=== PATIENT | male | born 1960 | race Caucasian/White ===

== ENCOUNTER 2021-05-02 13:20 | Emergency (ER) | payer OTHER, SELFPAY ==
[2021-05-02 13:21] VITALS: BP 266/115; PULSE 79; RESP 16; TEMP 36.4; O2SAT 100; BMI 19.5
[2021-05-02 14:42] VITALS: BP 202/101; PULSE 66; RESP 15; O2SAT 99
[2021-05-02 15:04] LABS: Mean Corpuscular Volume 91.1 fL (80-94); Platelet Count 193 K/mm3 (150-450); RBC Distribution Width CV 12.4 % (11.6-14.6); RBC Distribution Width SD 41.4 fl (35.1-43.9); Red Blood Count 5.49 M/mm3 (4.6-6.2); White Blood Count 14.5 K/mm3 (4.4-11.0)
[2021-05-02 15:19] LABS: Anion Gap 4 (5-15); BUN 11 mg/dL (7-18); BUN/Creat Ratio 10.8 RATIO (10-20); Calcium,Total 9.1 mg/dL (8.5-10.1); Chloride 108 mmol/L (98-107); Creatinine, Serum 1.02 mg/dL (0.70-1.30); EST Glomerular Filtration Rate 79 mL/min (>60); Est Glom Filt Rate - Afr Amer 95 mL/min (>60); Estimated Creatinine Clearance 60.99 ml/min; Glucose 116 mg/dL (74-106); Potassium 4.2 mmol/L (3.5-5.1); Sodium Level 139 mmol/L (136-145)
--- NOTE | 2021-05-02 15:26 | EX.ED.DYSGE1 ---
HPI History of Present Illness Chief Complaint: Hypertension Detail of Chief Complaint: Sent to ER because of elevated blood pressure Informant: patient and spouse/S.O. Onset/Context/Timing Onset: - (Unknown) Context: - (Unknown) Timing: - (Unknown) Quality: Markedly low blood pressure Location: Cardiovascular Current Severity: Severe Maximum Severity: Severe Worsened by: Unknown Relieved by: Unknown Associated Symptoms Associated Symptoms: None Narrative Narrative: Patient is a 61-year-old male who smokes 1/2 pack/day and drinks heavily on weekends who was sent to the emergency department from urgent care because of elevated blood pressure. He went to the urgent care because of runny nose for the past 3 days. He thinks he may have a sinus infection. He denies headache, he denies double vision, blurred vision loss of vision. [place] ringing his ears, decreased hearing. He denies trouble with speech or swallowing. He denies chest pain or back pain. He denies shortness of breath. Denies [place] exertion, orthopnea or PND. He denies nausea or vomiting. He denies difficulty urinating. He denies change in the color of his urine. He denies paresthesia, anesthesia or motor is. He denies problems with his balance. He is presently on no medication. He has not seen a doctor in a couple of years. Prior similar symptoms: No Recent Illness/Hospitalization: No PFSH PFS Medical History Marijuana use Smoker Home Medications hydrochlorothiazide 12.5 mg PO DAILY #30 tab 05/02/21 [Rx Last Taken Unknown] lisinopril 5 mg PO DAILY #30 tab 05/02/21 [Rx Last Taken Unknown] Allergy/AdvReac Type Severity Reaction Status Date / Time No Known Allergies Allergy Verified 05/02/21 13:25 Social History (Updated 05/02/21 @ 15:[address] Vasu Cantrell MD) household members: significant other Smoking Status: Current every day smoker tobacco type: cigarettes alcohol intake: current alcohol intake frequency: a few times a week substance use type: marijuana ROS ROS ED Constitutional Constitutional ED: Denies chills, fever(s), subjective, sweats or weight loss Eyes Eyes: Denies blurry vision, change in vision or diplopia ENT ENT ED: Denies ear pain, rhinorrhea or sore throat Cardiovascular Cardiovascular: Denies chest pain, orthopnea, palpitations, paroxysmal nocturnal dyspnea or racing heartbeat Respiratory/Chest Respiratory/Chest: Denies cough, dyspnea, dyspnea on exertion, orthopnea, paroxysmal nocturnal dyspnea or sputum Gastrointestinal Gastrointestinal: Denies abdominal pain, diarrhea, melena, nausea or vomiting Genitourinary Genitourinary ED: Denies hematuria or urinary frequency Musculoskeletal Musculoskeletal: Denies arthralgias, back pain, myalgias or neck pain Integumentary Denies rash Neurologic Neurologic: Denies headache(s), paresthesias or weakness Endocrine Endocrinology: Denies polydipsia, polyphagia or polyuria EXAM Physical Exam Const Vital Signs: 05/02/21 13:21 05/02/21 14:42 05/02/21 16:01 Temperature 97.5 F L Temperature Source Temporal Pulse Rate 79 66 74 Respiratory Rate 16 15 18 Blood Pressure 266/115 H 202/101 H 202/107 H Blood Pressure Mean 165 134 138 Pulse Ox 100 99 97 Oxygen Delivery Method Room Air Room Air Room Air Positive well nourished and well developed General Appearance ED: well developed and NAD; Negative for pallor HEENT Reports TM's clear and moist mucous membranes HEENT Narrative: Head is atraumatic normocephalic. Nares patent. Posterior pharynx out erythema or exudate. Tympanic Membrane ED: Yes TM's clear Eyes PERRL and EOMs intact bilaterally General Eye ED: Yes other Other Details: The cup-to-disc ratio is normal. Is no papilledema. There is AV nicking noted. Venous pulsations noted bilaterally. No exudate was noted. He does have significant cataracts and admits to difficulty driving at night with lights coming at him. ; Negative for pale conjunctiva or scleral icterus Neck no lymphadenopathy, supple and no JVD Chest Wall inspection of chest normal and palpation of chest normal Resp normal respiratory effort and clear to auscultation bilaterally Effort and Inspection: Negative for pain with movement Cardio regular rate, regular rhythm, S1 normal heart sound, S2 normal heart sound and no murmurs GI normal to inspection, nondistended, normoactive bowel sounds, non-tender and non-distended; Negative for hepatosplenomegaly GI Narrative: There is no abdominal bruit. There is no pulsatile mass. Palpation: soft Back/Spine no CVA tenderness Cervical Spine: Negative for cervical spine tenderness Thoracic Spine / Upper Back: Negative for thoracic spinal tenderness or paraspinal muscle tenderness Lumbar Spine / Lower Back: Negative for lumbar spinal tenderness Extremity normal to inspection General Extremety ED: Negative for edema or tenderness General Extremity: Negative for edema Neuro oriented x3, CN's II-XII intact bilaterally and no sensory deficits noted Sensorium / Orientation: alert Motor Exam: strength 5/5 throughout Psych mental status grossly normal Skin no rashes or lesions noted, no wounds and skin turgor normal General Skin Exam: Negative for jaundice or pallor MDM MDM MDM Narrative Medical decision making narrative: Patient's initial blood pressure was 266/115. Onset is unknown. He is asymptomatic. Baseline blood work was obtained to assess for endorgan injury. Blood pressure initially 266/115. When reassessed 202/107. Patient did receive dose of lisinopril and hydrochlorothiazide in the emergency department. He was discharged prescription for lisinopril and hydrochlorothiazide. Lab Data Attestation: I reviewed the patient's lab results. Lab results narrative: Blood work is remarkable for mild proteinuria and hematuria consistent with longstanding high blood pressure. Of note patient's funduscopic exam revealed mild AV nicking. Labs: Laboratory Results - last 24 hr 05/02/21 05/02/21 05/02/21 14:55 14:55 15:25 WBC 14.5 H RBC 5.49 Hgb 17.0 H Hct 50.0 MCV 91.1 MCH 31.0 MCHC 34.0 RDW Std Deviation 41.4 RDW Coeff of Mick 12.4 Plt Count 193 MPV 10.0 Sodium 139 Potassium 4.2 Chloride 108 H Carbon Dioxide 27.0 Anion Gap 4 L BUN 11 Creatinine 1.02 Estim Creat Clear Calc 60.99 Est GFR (MDRD) Af Amer 95 Est GFR (MDRD) Non-Af 79 BUN/Creatinine Ratio 10.8 Glucose 116 H Calcium 9.1 Urine Color Yellow Urine Clarity Clear Urine pH 6.0 Ur Specific [place] 1.010 Urine Protein 15 H Urine Glucose (UA) Normal Urine Ketones Negative Urine Occult Blood 150 H Urine Nitrite Negative Urine Bilirubin Negative Urine Urobilinogen Normal Ur Leukocyte Esterase Negative Discharge Plan Triage Chief Complaint: Hypertension ED Provider: Vasu Cantrell Dx/Rx/DC Orders Clinical Impression: Asymptomatic hypertensive urgency Instructions: ED Hypertension New Begin Treatment Prescriptions: New lisinopril 5 mg tablet 5 mg PO DAILY Qty: 30 RF: 0 hydrochlorothiazide 12.5 mg tablet 12.5 mg PO DAILY Qty: 30 RF: 0 Primary Care Provider: Care Physician,No Primary Referrals: Conrad Champion MD [STAFF PHYSICIAN] - 1-2 Weeks (New onset hypertension. Funduscopic exam revealed AV nicking and urine was remarkable for mild proteinuria and hematuria started on lisinopril and hydrochlorothiazide) Care Physician,No Primary [Primary Care Provider] - Disposition Disposition: Home, Self Care
[2021-05-02 15:35] LABS: Color, Urine Yellow (Yellow); Glucose, Dipstick Normal (Normal); Ketone-Dipstick Negative (Negative); Leukocyte Esterase-Dipstick Negative /ul (Negative); Nitrite-Dipstick Negative (Negative); Occult Blood-Urine 150 /ul (Negative); Protein-Dipstick 15 mg/dl (Negative); Urine Bilirubin Dipstick Negative (Negative); Urine Clarity Clear (Clear); Urine Urobilinogen Normal (Normal)
[2021-05-02 16:01] VITALS: BP 202/107; PULSE 74; RESP 18; O2SAT 97
[2021-05-02] MEDS: hydroCHLOROthiazide 12.5mg 12.5 MG PO (16:02)
--- NOTE | 2021-05-02 16:13 | EDS_ITS ---
HPI History of Present Illness Chief Complaint: Hypertension PFSH PFSH Medical History Marijuana use Smoker Home Medications hydrochlorothiazide 12.5 mg PO DAILY #30 tab 05/02/21 [Rx Last Taken Unknown] lisinopril 5 mg PO DAILY #30 tab 05/02/21 [Rx Last Taken Unknown] Allergy/AdvReac Type Severity Reaction Status Date / Time No Known Allergies Allergy Verified 05/02/21 13:25 Social History (Updated 05/02/21 @ 15:[address] Vasu Cantrell MD) household members: significant other Smoking Status: Current every day smoker tobacco type: cigarettes alcohol intake: current alcohol intake frequency: a few times a week substance use type: marijuana EXAM Physical Exam Const Vital Signs: 05/02/21 13:21 05/02/21 14:42 05/02/21 16:01 Temperature 97.5 F L Temperature Source Temporal Pulse Rate 79 66 74 Respiratory Rate 16 15 18 Blood Pressure 266/115 H 202/101 H 202/107 H Blood Pressure Mean 165 134 138 Pulse Ox 100 99 97 Oxygen Delivery Method Room Air Room Air Room Air [facility] Lab Data Labs: Laboratory Results - last 24 hr 05/02/21 05/02/21 05/02/21 14:55 14:55 15:25 WBC 14.5 H RBC 5.49 Hgb 17.0 H Hct 50.0 MCV 91.1 MCH 31.0 MCHC 34.0 RDW Std Deviation 41.4 RDW Coeff of Mick 12.4 Plt Count 193 MPV 10.0 Sodium 139 Potassium 4.2 Chloride 108 H Carbon Dioxide 27.0 Anion Gap 4 L BUN 11 Creatinine 1.02 Estim Creat Clear Calc 60.99 Est GFR (MDRD) Af Amer 95 Est GFR (MDRD) Non-Af 79 BUN/Creatinine Ratio 10.8 Glucose 116 H Calcium 9.1 Urine Color Yellow Urine Clarity Clear Urine pH 6.0 Ur Specific [place] 1.010 Urine Protein 15 H Urine Glucose (UA) Normal Urine Ketones Negative Urine Occult Blood 150 H Urine Nitrite Negative Urine Bilirubin Negative Urine Urobilinogen Normal Ur Leukocyte Esterase Negative Discharge Plan Triage Chief Complaint: Hypertension ED Provider: Vasu Cantrell Dx/Rx/DC Orders Clinical Impression: Asymptomatic hypertensive urgency Instructions: ED Hypertension New Begin Treatment Prescriptions: New lisinopril 5 mg tablet 5 mg PO DAILY Qty: 30 RF: 0 hydrochlorothiazide 12.5 mg tablet 12.5 mg PO DAILY Qty: 30 RF: 0 Primary Care Provider: Care Physician,No Primary Referrals: Conrad Champion MD [STAFF PHYSICIAN] - 1-2 Weeks (New onset hypertension. Funduscopic exam revealed AV nicking and urine was remarkable for mild proteinuria and hematuria started on lisinopril and hydrochlorothiazide) Care Physician,No Primary [Primary Care Provider] - Disposition Disposition: Home, Self Care
[2021-05-02 16:16] VITALS: BP 181/111
[2021-05-02] MEDS: Lisinopril 5 MG Tablet PO (16:23)
== END 2021-05-02 16:27 | disposition home or self-care (01) ==
PROVIDERS: Emergency Provider Emergency Medicine
DX: I16.0 Hypertensive urgency (principal); F17.210 Nicotine dependence, cigarettes, uncomplicated; F12.90 Cannabis use, unspecified, uncomplicated
CPT/HCPCS: 80048; 81002; 85027; 99285; A4216

== ENCOUNTER → 2022-07-15 | Outpatient (CLI) | payer SELFPAY ==
[2022-07-15 10:22] LABS: Hematocrit 52.3 % (40-54); Hemoglobin 17.2 g/dL (13.0-16.5); Mean Corp Hgb Conc 32.9 g/dL (32-36); Mean Corpuscular Hgb 30.3 pg (27.0-32.0); Mean Corpuscular Volume 92.2 fL (80-94); Mean Platelet Vol. 10.5 fl (6.2-12.0); Platelet Count 222 K/mm3 (150-450); RBC Distribution Width CV 12.5 % (11.6-14.6); RBC Distribution Width SD 42.9 fl (35.1-43.9); Red Blood Count 5.67 M/mm3 (4.6-6.2); White Blood Count 11.8 K/mm3 (4.4-11.0)
[2022-07-15 10:54] LABS: Anion Gap 5 (5-15); BUN 17 mg/dL (7-18); BUN/Creat Ratio 14.8 RATIO (10-20); Calcium,Total 9.6 mg/dL (8.5-10.1); Chloride 107 mmol/L (98-107); Cholesterol 258 mg/dL (200); Creatinine, Serum 1.15 mg/dL (0.70-1.30); EST Glomerular Filtration Rate 68 mL/min (>60); Est Glom Filt Rate - Afr Amer 83 mL/min (>60); Glucose 107 mg/dL (74-106); High Density Lipoprotein 38 mg/dL; PSA,Total - Annual Screen 1.28 ng/mL (0.00-4.00); Sodium Level 139 mmol/L (136-145); Triglycerides 204 mg/dL; Very Low Density Lipoprotein 41 mg/dL (5-40)
== END | disposition home or self-care (01) ==
LOC: MFPLAB 09:25
PROVIDERS: PCP Family Medicine; Referring Provider Family Medicine; Visit Provider Family Medicine
DX: I10 Essential (primary) hypertension (principal); Z72.0 Tobacco use; Z13.220 Encounter for screening for lipoid disorders
CPT/HCPCS: 36415; 80048; 80061; 84153; 85027; G0103

== ENCOUNTER → 2022-10-28 | Outpatient (CLI) | payer SELFPAY ==
[2022-10-28 15:54] LABS: Bacteria 0 SEEN /hpf (None Seen); Mucous, Urine 0 SEEN /hpf (<or=2+); Red Blood Cells-Urine 0 SEEN /hpf (0-5); Squamous Epithelial Cells - UA 0 SEEN /hpf (0-5); White Blood Cells 0 SEEN /hpf (0-5)
[2022-10-28 16:06] LABS: Color, Urine Yellow (Yellow); Glucose, Dipstick Normal (Normal); Ketone-Dipstick Negative (Negative); Leukocyte Esterase-Dipstick Negative /ul (Negative); Nitrite-Dipstick Negative (Negative); Occult Blood-Urine 50 /ul (Negative); Protein-Dipstick Negative (Negative); Urine Bilirubin Dipstick Negative (Negative); Urine Clarity Clear (Clear); Urine Urobilinogen Normal (Normal)
== END | disposition home or self-care (01) ==
PROVIDERS: PCP Family Medicine; Referring Provider Family Medicine; Visit Provider Family Medicine
DX: Z00.00 Encounter for general adult medical examination without abnormal findings (principal)
CPT/HCPCS: 81001

== ENCOUNTER → 2023-08-17 | Outpatient (CLI) | payer MEDICAID, SELFPAY ==
--- NOTE | 2023-08-17 12:57 | CT_ITS ---
HISTORY: screen. Smoker 1 PPD x 55 years. TECHNIQUE: Helically acquired images were obtained of the chest without contrast. A radiation dose optimization technique was used for this scan. 876 images. COMPARISON: None. FINDINGS: LARGE AIRWAYS: Incompletely imaged 1.5 cm opacity at the left aspect of the epiglottis. Grossly patent trachea and central airways. LUNGS: Mild-moderate centrilobular emphysema with mild scarring. 5 mm right upper lobe nodule. Small calcified right lower lobe granuloma. 4 mm lingular nodule. PLEURA: No pneumothorax or significant pleural effusion. HEART/PERICARDIUM: Heart within normal limits in size with coronary artery calcification. No pericardial effusion. VESSELS: Thoracic aorta nondilated. Mild atherosclerosis. MEDIASTINUM/MARIA E: No pathologically enlarged adenopathy. UPPER ABDOMEN: Unremarkable. BONES: Mild degenerative change. CT/Low Dose CT Lung Screening IMPRESSION: Mild-moderate emphysema with pulmonary nodules measuring up to 5 mm. Lung-RADS category 2: Continue annual screening with low dose CT. Electronically Signed: Windy Shabazz MD at 11:44 EST ,
--- OUTSIDE RECORDS SUMMARY | 2023-08-17 13:21 | XMS RPT_ITS | CCD ---
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 Name Role Phone JAMES WADDELL Unavailable Unavailable TAYE CUNHA Unavailable UnavailJUDY Jo Unavailable Unavailable TAYE CUNHA Unavailable UnavailTAYE Montelongo Unavailable Unavailabl JAMES Lambert Unavailable Unavailable TAYE CUNHA Unavailable UnavailJUDY Jo Unavailable Unavailable TAYE CUNHA Unavailable UnavailTAYE [place]el[place] Unavailable Unavailabl e Problems Active Problems Problem Classification Problem Date Documented Da te Episodic/Chronic Essential hypertension (1 source) Essential (primary) hypertension; Translations: [Essential (primary) hypertension] Onset: 10-28-2017 Chronic Past or Other Problems Problem Classification Problem Date Documented Da te Episodic/Chronic Other lower respiratory disease (1 source) Shortness of breath; Translations: [Shortness of breath] Onset: 07-28-2017 Episodic Encounters Encounter Date Encounter Type Care Provider Facility Start: 10-28-2017 End: 10-28-2017 Ambulatory JUDY Ortiz [facility] Start: 10-26-2017 Ambulatory JUDY Ortiz [facility] Start: 07-28-2017 Ambulatory JAMES [facility] Start: 07-28-2017 End: 07-28-2017 Ambulatory J[facility] Payers Date Payer Category Payer Policy ID Medicaid [id number] Summary Purpose Family History No Family History Records Found Advance Directives No Advanced Directives Records Found Additional Source Comments (unrecognized sect ion and content) No Status Records Found INFORMATION SOURCE (unrecogn ized section and content) FOR RECORDS PERTAINING TO PATIENTS WHO ARE OR HAVE BEEN ENROLLED IN A CHEMICAL DEPENDENCY/SUBSTANCEABUSE PROGRAM, SOME INFORMATION MAY BE OMITTED. This clinical summary was aggregated from multiple sources. Caution should be exercised in using it in the provision of clinical care. This summary normalizes information from multiple sources, and as a consequence, information in this document may materially change the coding, format and clinical context of patient data. In addition, data may be omitted in some cases. CLINICAL DECISIONS SHOULD BE BASED ON THE PRIMARY CLINICAL RECORDS. [facility] provides no warranty or guarantee of the accuracy or completeness of information in this document.
== END | disposition home or self-care (01) ==
LOC: CT 12:44
PROVIDERS: PCP Family Medicine; Referring Provider Family Medicine; Visit Provider Family Medicine
DX: Z72.0 Tobacco use (principal); J43.9 Emphysema, unspecified; R91.1 Solitary pulmonary nodule
CPT/HCPCS: 71271

== ENCOUNTER → 2024-04-04 | Outpatient (CLI) | payer MEDICAID, SELFPAY ==
[2024-04-04 12:26] LABS: Absolute Lymphocyte Count 3.01 X10^3/uL (0.83-4.51); Absolute Neutrophil Count 10.6 X10^3/uL (2.0-7.7); Basophil# 0.09 X10^3/uL; Basophil% 0.6 % (0-1); Eosinophil# 0.28 X10^3/uL; Eosinophils% 1.9 % (0-5); Hemoglobin 15.5 g/dL (13.0-16.5); Lymphocyte # 3.01 X10^3/ul (0.83-4.51); Lymphocyte % 20.2 % (19-41); Mean Corp Hgb Conc 32.3 g/dL (32-36); Mean Corpuscular Hgb 29.5 pg (27.0-32.0); Mean Corpuscular Volume 91.3 fL (80-94); Mean Platelet Vol. 9.8 fl (6.2-12.0); Monocyte# 0.86 X10^3/uL; Monocyte% 5.8 % (0-10); NRBC Flagged by Analyzer 0 % (0-5); Neutrophil # 10.56 X10^3/uL (2.7-7.7); Platelet Count 379 K/mm3 (150-450); RBC Distribution Width CV 12.6 % (11.6-14.6); RBC Distribution Width SD 42.4 fl (35.1-43.9); Red Blood Count 5.26 M/mm3 (4.6-6.2); White Blood Count 14.9 K/mm3 (4.4-11.0)
[2024-04-04 12:33] LABS: Erythrocyte Sedimentation Rate 11 mm/hr (0-20)
[2024-04-04 12:55] LABS: ALB/GLOB Ratio 1.2 RATIO (0.9-2.4); AST(SGOT) 14 U/L (15-37); Alanine Aminotransfer ALT/SGPT 35 U/L (16-61); Albumin, Serum 3.9 g/dL (3.2-5.0); Alkaline Phosphatase 81 U/L (45-117); Anion Gap 7 (5-15); BUN 23 mg/dL (7-18); BUN/Creat Ratio 21.3 RATIO (10-20); Calcium,Total 9.2 mg/dL (8.5-10.1); Chloride 108 mmol/L (98-107); Cholesterol 135 mg/dL (200); Creatinine, Serum 1.08 mg/dL (0.70-1.30); EST Glomerular Filtration Rate 73 mL/min (>60); Est Glom Filt Rate - Afr Amer 89 mL/min (>60); Globulin 3.3 g/dL (2.2-4.2); Glucose 100 mg/dL (74-106); High Density Lipoprotein 38 mg/dL; Potassium 4.6 mmol/L (3.5-5.1); Protein, Total 7.2 g/dL (6.4-8.2); Sodium Level 138 mmol/L (136-145); Triglycerides 114 mg/dL; Very Low Density Lipoprotein 23 mg/dL (5-40)
== END | disposition home or self-care (01) ==
LOC: MTLAB 10:14
PROVIDERS: PCP Family Medicine; Referring Provider Family Medicine; Visit Provider Family Medicine
DX: I10 Essential (primary) hypertension (principal); Z12.5 Encounter for screening for malignant neoplasm of prostate; R63.4 Abnormal weight loss; R35.1 Nocturia
CPT/HCPCS: 36415; 80053; 80061; 84153; 84443; 85025; 85652

== ENCOUNTER → 2024-04-11 | Outpatient (CLI) | payer MEDICAID, SELFPAY ==
--- NOTE | 2024-04-11 | LES_PTH ---
PATIENT: DB VALDEZ LOC: EV U#:[id number] AGE/SX: 64/M ROOM: RE04/11/[address]: Dr. 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 See lima. 04/13/2024 COMMENT The tumor predominantly consists of basal cell carcinoma components with central area with squamous cell carcinoma component. Clinical correlation and appropriate follow up are necessary. This case has been reviewed in consultation with Dr. Yee who concurs with the above diagnosis. IDC:PW MICROSCOPIC DESCRIPTION Slides are reviewed. GROSS DESCRIPTION Received in fixative is one container labeled with the patient's name and designated Center back. The specimen consists of a shave biopsy of moffett-white skin measuring 1.6 x 1.0 x 0.2cm. The specimen is inked, serially sectioned and submitted entirely in one cassette. 04/12/2024 TC:0 CPT:75510
== END | disposition home or self-care (01) ==
LOC: LABSPEC 15:08
PROVIDERS: PCP Family Medicine; Referring Provider Family Medicine; Visit Provider Family Medicine
DX: C76.8 Malignant neoplasm of other specified ill-defined sites (principal)
CPT/HCPCS: 88305

== ENCOUNTER → 2024-08-18 | Outpatient (CLI) | payer MEDICAID, SELFPAY ==
--- NOTE | 2024-08-18 15:40 | CT_ITS ---
PROCEDURE: LOW DOSE CT LUNG SCREENING REASON FOR EXAM: Current smoker. Patient has smoked 1-1/2 pack per day for 56 years. TECHNIQUE: Low Dose CT Lung Screening without contrast COMPARISON: Comparison is made with prior study dated August 17, 2023. FINDINGS: PULMONARY NODULES: (Only nodules >6mm are reported) Nodules described below are on series 1 unless otherwise specified. Pulmonary Nodules: Stable 5 mm noncalcified nodule in the posterior aspect of the right upper lobe as seen on axial image number 47. Hardware:None Lymph Nodes:No mediastinal hilar or axillary lymphadenopathy. Heart and Vasculature:Normal heart size. No pericardial effusion.Thoracic aorta and pulmonary arteries have normal contours; noncontrast technique limits evaluation. Coronary Artery Calcifications: Present Lungs and Airways: Mild emphysematous changes are present. Pleura:No pleural effusion. No pneumothorax. Upper Abdomen:Visualized portions of the upper abdominal viscera are unremarkable. Bones:Degenerative changes of the thoracic spine. CT/Low Dose CT Lung Screening IMPRESSION: 1. BASED ON THE ACR LUNG RADS FOR THE MOST SUSPICIOUS NODULE (IF ANY) DESCRIBE D IN THIS REPORT, THE OVERALL LUNG RADS SCORE IS 2.2 - BENIGN (BASED ON IMAGING FEATURES OR INDOLENT BEHAVIOR). RECOMMEND 12-MON TH SCREENING LDCT.. 2. SMOKING CESSATION COUNSELING IS RECOMMENDED IF THE PATIENT IS STILL SMOKING . 3. OTHER SIGNIFICANT FINDINGSNone. One or more dose reduction techniques were used (e.g., Automated exposure contr ol, adjustment of the mA and/or kV according to patient size, use of iterative reconstruction technique). The following information is provided for reference:Lung-RADS 2021 Assessment C ategories. Additional information involving Lung-RADS is available at www.acr.org. 0-INCOMPLETE 1-NEGATIVE:No nodules or definitely benign nodules. Complete, central, popcorn , or centric ring calcifications OR fat containing 2-BENIGN APPEARANCE (based on imaging features or indolent behavior). Juxtaple ural nodule: < 10mm AND solid; smooth margins; oval, entiform, or triangular shape Solid nodule: <6mm at baseline or new< 4mm Part solid Nodule: < 6mm total mean diameter at baseline Nonsolid nodule:(GGN) < 30mm OR >=30mm stable or slowly growing Airway nodule, subsegmental at baseline, new, or stable Category 3 nodule stabl e or decreased in size at 6-month follow-up CT or Category 3 or 4A nodules that resolve on follow-up OR category 4B findings prov en to be benign following diagnotic work up. 3 - Probably Benign (Based on imaging features or behavior) Solid Nodule: >= 6 to <8mm at baseline OR new 4 to <6mm Part-solid nodule: >= 6mm toal mean diam. with solid component <6mm at baseline OR new < 6mm total mean diam. Non-solid nodule: GGN >= 30mm at baseline or new Atypical pulmonary cyst: Growing cystic component (mean diam.) of thick-walled cyst Category 4A nodule stable or decreased in size at 3-month follow-up CT (excl.ai rway). 4A - Suspicious Solid nodule: >=8 to < 15mm at baseline OR growing < 8mm OR new 6 to < 8mm Part solid nodule: >= 6mm total mean diam. w/ solid component >=6mm to < 8mm at baseline OR new or growing < 4mm solid component Airway nodule, segmental or more proximal at baseline or new Atypical pulmonary cyst: Thick-walled OR multilocular at baseline OR becomes mu ltilocular 4B - Very Suspicious Airway nodule, segmental or more proximal, and stable or growing Solid nodule: >= 15mm at baseline OR new or growing >= 8mm Part solid nodule: Solid component >= 8mm OR new or growing >= 4mm solid compon ent Atypical pulmonary cyst: Thick-walled with growing wall thickness/nodularity OR Growing multilocular (mean diam.) OR Multilocular with increased loculation or new/increased opacity Slow-growing solid or part solid nodule w/ growth over multiple screening exams 4X - Very Suspicious Category 3 or 4 nodules with additional features that increase the suspicion fo r lung cancer. S - Clinically Significant or potentially significant findings (non-lung cancer ) Reading Location: [facility]
== END | disposition home or self-care (01) ==
LOC: CT 15:39
PROVIDERS: PCP Family Medicine; Referring Provider Family Medicine; Visit Provider Family Medicine
DX: F17.210 Nicotine dependence, cigarettes, uncomplicated (principal)
CPT/HCPCS: 71271

== ENCOUNTER 2024-08-24 06:49 | Day surgery (SDC) | payer MEDICAID, SELFPAY ==
--- NOTE | 2024-08-15 10:18 | EKG12_ITS ---
Test Reason : PREOP Blood Pressure : */* mmHG Vent. Rate : 60 BPM Atrial Rate : 60 BPM P-R Int : 148 ms QRS Dur : 78 ms QT Int : 382 ms P-R-T Axes : 76 24 76 degrees QTcB Int : 382 ms Normal sinus rhythm Possible Left atrial enlargement Borderline ECG Confirmed by Nicolas Hayes ([id number]), video news editor KAISER CORTES ([id number]) on 08/16/2024 5:57:20 AM Referred By: Fortino Zhu Confirmed By: Nicolas Hayes
[2024-08-15 11:15] LABS: Hematocrit 48.3 % (40-54); Hemoglobin 16.3 g/dL (13.0-16.5); Mean Corp Hgb Conc 33.7 g/dL (32-36); Mean Corpuscular Hgb 29.7 pg (27.0-32.0); Mean Corpuscular Volume 88.1 fL (80-94); Mean Platelet Vol. 9.6 fl (6.2-12.0); Platelet Count 223 K/mm3 (150-450); RBC Distribution Width CV 12.5 % (11.6-14.6); RBC Distribution Width SD 40.7 fl (35.1-43.9); Red Blood Count 5.48 M/mm3 (4.6-6.2); White Blood Count 10.6 K/mm3 (4.4-11.0)
[2024-08-15 11:26] LABS: Partial Thromboplast Time 26.4 Seconds (24.1-36.2)
[2024-08-15 12:36] LABS: Alanine Aminotransfer ALT/SGPT 14 U/L (<=46); Albumin, Serum 4.6 g/dL (3.4-4.8); Alkaline Phosphatase 74 U/L (40-129); Bilirubin, Direct 0.32 mg/dL (0.00-0.30); Globulin 2.6 g/dL (2.2-4.2); Protein, Total 7.2 g/dL (5.9-8.4); Total Bilirubin 1.04 mg/dL (0.00-1.30)
[2024-08-15 12:50] LABS: AST(SGOT) 21 U/L (<=37)
--- NOTE | 2024-08-16 09:21 | PAT.ANESEVAL ---
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 When Was Last Pacemaker Check QUESTION #4 FULL TEXT: You/Your Family Experience fever (hyperthermia) with Anesthesia Last Oral Intake Last Oral intake: Last Oral Intake NPO since Meds taken in AM with sips of water? Meds patient instructed to take am of surgery PONV PONV - air traffic control supervisor: PONV - air traffic control supervisor Female No 08/14/24 08:03 HX of Motion Sickness No 08/14/24 08:03 HX of N/V After Surgery No 08/14/24 08:03 Non-Smoker No 08/14/24 08:03 Duration of Surgery greater Yes 08/14/24 08:03 than 60 minutes Number of Risk Factors 1 08/14/24 08:03 PONV Score Low Risk 08/14/24 08:03 Height & Weight Height & Weight: Anesthesia: Height & Weight Height 5 ft 7 in 08/14/24 08:48 Respiratory Assessment Respiratory Assessment - air traffic control supervisor: Respiratory Tract Infection Hx - air traffic control supervisor Hx Respiratory Tract Infection No 08/14/24 08:03 STOP Sleep Apnea STOP Sleep Apnea - air traffic control supervisor: STOP Sleep Apnea - air traffic control supervisor Hx Hypertension Yes: per pt, CONTROLLED WITH 08/14/24 08:03 MED Hx Sleep Apnea No 08/14/24 08:03 CPAP BIPAP Do you snore loudly (louder No 08/14/24 08:03 than talking or can be heard Do you often feel tired/ No 08/14/24 08:03 fatigued/ sleepy during daytime? Has anyone observed you stop No 08/14/24 08:03 breathing during sleep? STOP Results Negative 08/14/24 08:03 QUESTION #5 FULL TEXT : Do you snore loudly (louder than talking or can be heard through closed doors)? 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 Specify any problems Hx of Preganancy in last 3 N/A 08/14/24 08:03 Months Nurse Filling Out Transfusion MGRIFFITH 08/14/24 08:03 & Questions: Date: 08/14/24 08/14/24 08:03 Time: 08:04 08/14/24 08:03 Patient unable to answer at this time (ie. confused, unrespo /Reproduction History /Reproductive History - air traffic control supervisor: /Reproductive Hx- air traffic control supervisor Hx Now Gestational Age (in weeks): EDC: Hx Hx Para Hx Section SAB No 04/06/24 09:05 PFSH Medical History Cancer Easy bruising Wears glasses No natural teeth Alcohol use Syncope Prostate disease BPH (benign prostatic hyperplasia) History of stress test High cholesterol HTN (hypertension) Smoker Marijuana use Home Medications ?Medication ?Instructions ?Recorded ?Last Taken ?Type amlodipine 10 mg tablet 10 mg PO QDAY 01/24/24 Unknown History atorvastatin 20 mg tablet 20 mg PO QDAY 01/24/24 Unknown History fluticasone propionate 50 2 spray intranasal DAILY PRN nasal 01/24/24 Unknown History mcg/actuation nasal congestion spray,suspension lisinopril 40 mg tablet 40 mg PO QDAY 01/24/24 Unknown History Allergy/AdvReac Type Severity Reaction Status Date / Time No Known Allergies Allergy Verified 08/14/24 08:50 Family History Mother Cancer stomach Brother Heart disease Father Cancer skin Sister Thyroid disorder Surgical History No history of previous surgery Social History household members: significant other Smoking Status: Current every day smoker tobacco type: cigarettes alcohol intake: current alcohol intake frequency: a few times a week substance use type: marijuana Audit: Pertinent Findings Pertinent Findings EKG Perinent findings: 08/15/2024 normal sinus rhythm 60 bpm possible left atrial enlargement Recommendation Anesthesia Recommendation Anesthesia recommendation: OPTIMIZED for anesthesia
[2024-08-24] VITALS (9 sets, daily range): BP systolic 127–159; BP diastolic 65–86; PULSE 62–80; RESP 16–18; TEMP 36–37.1; O2SAT 92–98; BMI 19.9
--- NOTE | 2024-08-24 07:22 | HP.PCM_ITS ---
History and Physical Date of Admission: 08/24/24 Intake Vital Signs 01/23/2409:36 08/15/2507:47 08/15/2507:48 Height 5 ft 7 in 5 ft 7 in 5 ft 7 in Weight: 120 lb 126 lb 4 oz 126 lb BMI 18.8 19.8 19.7 BP 171/92 H 169/90 H 169/90 H Blood Pressure Location Lt brachial Rt brachial Rt brachial Position Sitting Sitting Sitting Respiration 18 18 Pulse 71 Pulse Source Monitor Temp 97.1 F L Temp Source Temporal Pulse Oximetry (%) 97 Oxygen Delivery Method room air Intake Visit Reasons: UPDATE H&P, R INGUINAL HERNIA Chief Complaint: update H&P, R inguinal hernia Is patient in pain?: No Allergies No Known Allergies Allergy (Verified 08/14/24 08:50) Medications ?Medication ?Instructions ?Recorded ?Confirmed ?Type amlodipine 10 mg tablet 10 mg PO QDAY 01/24/24 08/14/24 History atorvastatin 20 mg tablet 20 mg PO QDAY 01/24/24 08/14/24 History fluticasone propionate 50 2 spray intranasal DAILY PRN nasal 01/2308/14/24 History mcg/actuation nasal congestion spray,suspension lisinopril 40 mg tablet 40 mg PO QDAY 01/24/24 08/14/24 History PFSH Medical History Cancer Easy bruising Wears glasses No natural teeth Alcohol use Syncope Prostate disease BPH (benign prostatic hyperplasia) History of stress test High cholesterol HTN (hypertension) Smoker Marijuana use Surgical History No history of previous surgery Family History Mother Cancer stomachBrother Heart diseaseFather Cancer skinSister Thyroid disorder Social History household members: significant other Smoking Status: Current every day smoker tobacco type: cigarettes alcohol intake: current alcohol intake frequency: a few times a week substance use type: marijuana HPI HPI HPI: Patient is a 64-year-old male here for scheduling of his hernia repair. The patient has a right inguinal hernia and he is having pain on that side. I saw him over the summer for this and he would like his hernia repaired now that it is winter. He denies any new changes since last visit. ROS General General: Yes weight change and fatigue; No appetite, colon cancer, breast cancer or weakness HEENT HEENT: Yes eye injury and eye surgery; No difficulty swallowing, swollen glands or hoarseness Endo Endocrine: No thyroid disease, diabetes mellitus, thyroid cancer, Hair loss, heat intolerance or cold intolerance Skin Skin: No rash or changing moles Breast Breast: No left breast lump, right breast lump, nipple discharge, breast pain, abnormal mammogram, abnormal US or breast enlargement Musc Musculoskeletal: No back problems, arthritis, rheumatoid arthritis, gout or j oint pain Cardio Cardiovascular: Yes high blood pressure; No murmur, pacemaker, heart disease, atrial fibrillation, heart attack, heart stent, palpitations, shortness of breat with exertion or chest pain Psych Psychiatric: Yes anxiety; No depression or hearing voices Resp Respiratory: No shortness of breath, No sleep apnea, No cough, No COPD, No asthma, No emphysema and No wheezing Gastro Gastrointestinal: Yes abdominal pain, No nausea or vomiting, No diarrhea, No constipation, No blood in stool, No acid reflux, No hemorrhoids, No ulcers, No gallbladder problem and No black,tarry stools Alek Hematologic: No blood thinners, No blood disorders, No bleeding, No anemia and No blood clots Neuro Neurologic: No system reviewed and no additional complaints, except as documented, No as per HPI, No abnormal gait, No abnormal hearing, No abnormal movements, No abnormal speech, No behavioral changes, No burning sensations, No confusion, No convulsions, No disequilibrium, No dizziness, No localized weakness, No frequent falls, No headache(s), No lack of coordination, No loss of vision, No memory loss, Yes numbness, No other visual disturbances, No radicular pain, No restless legs, No sensory deficit, No syncope, Yes tingling, No tremor(s), No weakness and No other Exam Const General: cooperative Orientation: alert and oriented x3 HENMT Head: normal to inspection Neck Neck: normal visual inspection and full ROM Chest Chest palpation & inspection: normal inspection of the chest Resp Effort & Inspection: normal respiratory effort Auscultation: clear to auscultation bilaterally Cardio Rate: regular rate Rhythm: regular rhythm GI Inspection: non-distended Palpation: soft, hernia indirect inguinal on the right and nontender Skin General: no rashes or lesions noted Neuro General: patient alert and patient oriented x3 Extrem General: full ROM Psych Appearance: grossly normal Mental Status: mental status grossly normal Assessment and Plan Assessment and Plan (1) Right inguinal hernia: Status: Acute Plan: Patient has a small right inguinal hernia which is causing him pain. The patient does not have any pain on the left side. I was not able to palpate a hernia on the left. I discussed robotic assisted laparoscopic right inguinal hernia repair with mesh. I discussed the risks including but not limited to bleeding, infection, injury to surrounding organs such as the blood supply to the testicle or bowel or bladder. Patient understands the risks and is willing to proceed. Fortino Zhu MD Pager: [facility] [address] [place] [address] [address] [place] [address] Office: I have seen and reexamined the patient and reviewed the H&P. THere are no clinical changes
--- NOTE | 2024-08-24 07:55 | PRE.ANES_ITS ---
ASA Classification* ASA Classification ASA Classification: 2 (Patient is a heavy smoker, HTN, marijuana use, BPH, HLD. Recommend some precedex towards end of procedure if BPs tolerate. ) Assessment & Plan Anesthesia* Anesthesia Assessment Anesthesia Assessment: Discussed sedation and/or anesthesia options, risks, benefits, and alternatives with patient/parents/legal guardian/POA. Questions invited. The patient/parents/legal guardian/POA seems to understand and agrees to proceed with anesthesia plan. Reviewed the physical assessment, medical history, allergy history and patient home medications list prior to surgery/procedure/anesthetic and documented any changes. Performed airway and anesthesia risk assessments. Anesthesia Type Anesthesia Type: General History Source History Obtained from:: Patient and Chart Anesthesia Focused Assessment* Temperature: 97.9 F Pulse Rate: 62 Blood Pressure: 159/86 Respiratory Rate: 18 Pulse Ox: 98 Oxygen Delivery Method: Room Air Airway Assessment Mouth opens: >3 cm Mallampati Score: II Teeth Condition: Missing Neck Range of motion (ROM): Full ROM Focused Labs Anesthesia Preop lab: CBC WBC 10.6 K/mm3 (4.4-11.0) 08/15/24 10:51 08/15/24 RBC 5.48 M/mm3 (4.6-6.2) 08/15/24 10:51 08/15/24 Hgb 16.3 g/dL (13.0-16.5) 08/15/24 10:51 08/15/24 Hct 48.3 % (40-54) 08/15/24 10:51 08/15/24 Plt Count 223 K/mm3 (150-450) 08/15/24 10:51 08/15/24 CHEMISTRY Potassium 4.6 mmol/L (3.5-5.1) 04/04/24 10:04/04/24 Sodium 138 mmol/L (136-145) 04/04/24 10:04/04/24 BUN 23 mg/dL (7-18) H 04/04/24 10:04/04/24 Creatinine 1.08 mg/dL (0.70-1.30) 04/04/24 10:04/04/24 Glucose 100 mg/dL (74-106) 04/04/24 10:04/04/24 TSH 1.870 uIU/mL (0.358-3.740) 04/04/24 10:29 03/15 08/07 COAG PT 13.0 SECONDS (11.7-14.9) 08/15/24 10:51 Pre-Assessment Diagnosis/Proposed Procedure Planned Operative Procedure(s): (R) Lap Robotic Inguinal Hernia w/mesh Anesthesia History 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 When Was Last Pacemaker Check QUESTION #4 FULL TEXT: You/Your Family Experience fever (hyperthermia) with Anesthesia Last Oral Intake Last Oral intake: Last Oral Intake NPO since 06:00 08/24/24 07:31 Meds taken in AM with sips of No 08/24/24 07:31 water? Meds patient instructed to take am of surgery PONV PONV - dumpcart driver: PONV - dumpcart driver Female No 08/14/24 08:03 HX of Motion Sickness No 08/14/24 08:03 HX of N/V After Surgery No 08/14/24 08:03 Non-Smoker No 08/14/24 08:03 Duration of Surgery greater Yes 08/14/24 08:03 than 60 minutes Number of Risk Factors 1 08/14/24 08:03 PONV Score Low Risk 08/14/24 08:03 Height & Weight Height & Weight: Anesthesia: Height & Weight Height 5 ft 7 in 08/24/24 07:31 Weight: 57.7 kg 08/24/24 07:31 Body Mass Index (BMI) 19.9 08/24/24 07:31 Respiratory Assessment Respiratory Assessment - dumpcart driver: Respiratory Tract Infection Hx - dumpcart driver Hx Respiratory Tract Infection No 08/14/24 08:03 STOP Sleep Apnea STOP Sleep Apnea - dumpcart driver: STOP Sleep Apnea - dumpcart driver Hx Hypertension Yes: per pt, CONTROLLED WITH 08/14/24 08:03 MED Hx Sleep Apnea No 08/14/24 08:03 CPAP BIPAP Do you snore loudly (louder No 08/14/24 08:03 than talking or can be heard Do you often feel tired/ No 08/14/24 08:03 fatigued/ sleepy during daytime? Has anyone observed you stop No 08/14/24 08:03 breathing during sleep? STOP Results Negative 08/14/24 08:03 QUESTION #5 FULL TEXT : Do you snore loudly (louder than talking or can be heard through closed doors)? Tobacco Use History Tobacco Use History - dumpcart driver: Tobacco Use History - dumpcart driver Tobacco Use Smoking Status Current every day smoker 08/14/24 08:03 Hx Tobacco Use Yes 08/14/24 08:03 Years Smoking Packs Smoked per Day Smoking Cessation Date was within the last 15 years Hx Smoking Cessation Date Hx Smoking Cessation Counseling Hematologic Medial History Hematologic Hx - dumpcart driver: Hematologic Medical Hx - endoscopy tech Hx of Blood Transfusion No 08/14/24 08:03 Hx of Transfusion in last 3 No 08/14/24 08:03 Months Date of Last Transfusion (if within last 3 months) Ever experience any problems No 08/14/24 08:03 with transfusion(s)? Specify any problems Hx of Preganancy in last 3 N/A 08/14/24 08:03 Months Nurse Filling Out Transfusion MGRIFFITH 08/14/24 08:03 & Questions: Date: 08/14/24 08/14/24 08:03 Time: 08:04 08/14/24 08:03 Patient unable to answer at this time (ie. confused, unrespo /Reproduction History /Reproductive History - dumpcart driver: /Reproductive Hx- dumpcart driver Hx Now Gestational Age (in weeks): EDC: Hx Hx Para Hx Section SAB No 04/06/24 09:05 Active Medications Active Medications: Current Medications Generic Name Dose Route Start Last Admin Trade Name Freq PRN Reason Stop Dose Admin Cefazolin Sodium 2 gm/ N/A 20 mls @ 400 mls/hr 08/24/24 10:00 IV 08/24/24 10:02 PREOP ONE Sodium Chloride 1,000 mls @ 15 mls/hr 08/24/24 07:05 IV 08/29/24 20:24 .Q48H [facility] Protocol PFSH Medical History Cancer Easy bruising Wears glasses No natural teeth Alcohol use Syncope Prostate disease BPH (benign prostatic hyperplasia) History of stress test High cholesterol HTN (hypertension) Smoker Marijuana use Home Medications ?Medication ?Instructions ?Recorded ?Last Taken ?Type amlodipine 10 mg tablet 10 mg PO QDAY 01/24/24 Unkno wn History atorvastatin 20 mg tablet 20 mg PO QDAY 01/24/24 Unkno wn History fluticasone propionate 50 2 spray intranasal DAILY PRN nasal 01/24/24 Unknown History mcg/actuation nasal congestion spray,suspension lisinopril 40 mg tablet 40 mg PO QDAY 01/24/24 Unkno wn History Allergy/AdvReac Type Severity Reaction Status Date / Time No Known Allergies Allergy Verified 08/24/24 07:17 Family History Mother Cancer stomach Brother Heart disease Father Cancer skin Sister Thyroid disorder Surgical History No history of previous surgery Social History household members: significant other Smoking Status: Current every day smoker tobacco type: cigarettes alcohol intake: current alcohol intake frequency: a few times a week substance use type: marijuana Review of Systems (Anesthesia) ROS Narrative System reviewed and no additional complaints, except as documented. Physical Exam Const alert, oriented x3 and average body habitus Resp normal respiratory effort, normal air movement and clear to auscultation bilaterally Cardio regular rate, regular rhythm, no murmurs and diaphoretic
[2024-08-24] MEDS: Cefazolin 2 GM in Syringe IV (08:00)
[2024-08-24] MEDS: Bupivacaine Mpf 0.5% 30 ML VIAL (08:45)
--- NOTE | 2024-08-24 09:00 | PCM.POST.ANE ---
Anesthesia: Postop Eval I Current Vital Signs Temperature: 96.8 F Pulse Rate: 80 Blood Pressure: 150/80 Respiratory Rate: 18 Pulse Ox: 98 Oxygen Delivery Method: Nasal Cannula Oxygen Flow Rate (L/min): 2 Assessment Airway patent: Yes Spontaneous unlabored respirations: Yes Mental status: Awake and Calm nausea: No Vomiting: No Anesthesia Complication: No Fluid Hydration Crystalloid volume administer (ml): 800 Total IV fluid infused: 800 Progress Note Anesthesia document: Postop Eval 1 completed: Yes
--- NOTE | 2024-08-24 09:24 | POSTOPAN2_ITS ---
Anesthesia Postop Eval I Sum Postop Eval Completion status Anesthesia document: Postop Eval 1 completed: Yes Anesthesia Postop Eval I Summary Anesthesia Postop Eval I Summary: Anesthesia Postop Eval I: Assessment Summary Airway patent Yes 08/24/24 09:00 AIRCRAFT CHARTER DISPATCHER.DIMITRIOS Spontaneous unlabored Yes 08/24/24 09:00 AIRCRAFT CHARTER DISPATCHER.DIMITRIOS respirations Mental status Awake,Calm 08/24/24 09:00 AIRCRAFT CHARTER DISPATCHER.JCLI nausea No 08/24/24 09:00 AIRCRAFT CHARTER DISPATCHER.JCLI Vomiting No 08/24/24 09:00 AIRCRAFT CHARTER DISPATCHER.JCLI Anesthesia Postop Eval I: Fluid Summary Crystalloid volume administer 800 08/24/24 09:00 AIRCRAFT CHARTER DISPATCHER.JCLI (ml) Colloids volume administered ( ml) Blood Product volume administered (ml) Total IV fluid infused 800 08/24/24 09:00 AIRCRAFT CHARTER DISPATCHER.DIMITRIOS Anesthesia Postop Eval I: Summary Notes Anesthesia Complication No 08/24/24 09:00 AIRCRAFT CHARTER DISPATCHER.DIMITRIOS Anesthesia Complication Comment: Post-operative progress note Anesthesia: Postop Eval II Evaluation Mental status: Awake Pain Level: 6 (Receiving dilaudid.) nausea: No Vomiting: No Complications Anesthesia Complication: Yes Anesthesia Complication Comment:: 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 I personally spoke to the patient in PACU regarding this finding, and advised the patient that he will need to follow up with ENT as soon as possible for further management and workup. The patient understood and verbalized understanding. The need for follow/up with ENT was reiterated to the patient by the surgeon and the PACU staff. The polyps are three in number, and are at at the anterior, left side of the vocal cords. At this time, no vocal cord compression or tracheal compression was noted due to the mass. I advised the patient that the polyps could be secondary to a benign process or could be a more inflammatory process such as a cancerous process. The patient understands and has stated he will follow up with ENT upon discharge.
--- NOTE | 2024-08-24 09:40 | OP.PCM_ITS ---
Operative Report (Standard) Operative Information Date of Procedure: 08/24/24 Pre-Operative Diagnosis: Right inguinal hernia Post-Operative Diagnosis: Right inguinal hernia Surgery/Procedure Performed: Robotic assisted laparoscopic right inguinal hernia repair with mesh line service person: Yes Labour Market Economist: Kandi Solano Tasks completed by training and development assistant: Opening and Closing Type of Anesthesia: Block,Axillary RN Documented Start/Stop Times: Operation Date: 08/24/24 09:00 Case Time Into Pre-Op 08/24/24 07:02 Out of Pre-Op 08/24/24 07:55 Anesthesia Start 08/24/24 08:00 Into Room 08/24/24 08:00 Procedure Start 08/24/24 08:19 Procedure End 08/24/24 08:47 Anesthesia End 08/24/24 08:54 Out of Room 08/24/24 08:54 Into Recovery 08/24/24 08:56 Procedure Start Time: 08:19 Procedure Stop Time: 08:47 Select all DRAINS/GRAFTS/IMPLANTS that apply: Implanted device Implanted device details: ProGrip mesh Estimated Blood Loss: 5 Specimen collected: No Description of surgery: The patient was brought back to the operating room and general anesthesia was induced. Of note the patient had polyps on his epiglottis and he was recommende d to follow-up with ENT. After intubation the patient was prepped and draped in usual sterile fashion. A midline incision was made superior to the umbilicus and deepened to the fascia which was elevated and a Veress needle was placed into the abdomen and a drop test was performed. The abdomen is insufflated 15 mmHg. Veress needle was removed and a port was placed the care was placed into the abdomen and there were no injuries from entry. The patient was placed in Trendelenburg position and the inguinal regions were inspected. The patient had a small inguinal hernia on the right. Under direct visualization an 8 mm port was placed in the right lateral abdomen as well as the left lateral abdomen and then the robot was docked. Using electrocautery scissors the right peritoneum in the inguinal region was incised and dissection was carried inferiorly until the hernia sac was encountered. Once the hernia sac was reduced the inguinal canal was inspected and there was no lipoma. I was able to see all the way to the external ring. Next ProGrip mesh was unfolded over the hernia defect and then the peritoneum was reapproximated using a running 3 OV lock suture. The mesh was completely covered by peritoneum at the end of the case. Patient was awoken and brought to PACU in stable condition and tolerated the procedure well. Surgical Findings: Right inguinal hernia, polyps on epiglottis Complications Complications: No Admit VTE Documentation VTE Mechan Device Prophylaxis: SCD's
--- NOTE | 2024-08-24 09:43 | DCINST_ITS ---
Discharge Instructions Procedure Hernia Diet Discharge Diet: Light diet - advance as tolerated Activity Discharge Activity: May Not Drive (for 2-3 days or while taking narcotic pain meds.) and May Shower (with the bandage in place 1-2 days after surgery.) Lifting Restrictions: 20 pounds for 4 weeks. Additional Activity Instructions:: Climbing stairs is fine, walking is encouraged. Sitting in bed may be uncomfortable. Sitting up using your lateral muscles (sitting up sideways) is usually more comfortable. Do not drive, work heavy equipment of sign legal documents for 24 hours. If your hernia repair was an inguinal repair, you may have scrotal swelling, an ice pack and/or athletic support can provide more comfort. Pain medications may cause nausea, you should typically eat light foods as you take your pain medications. Pain medications may also cause constipation. If you have difficulty with this, discuss with your doctor. Alternate ibuprofen and Tylenol for pain control, oxycodone for breakthrough pain Dressing / Incision Call your doctor if your incision/area has: Continuous Slow Oozing, Sudden Increased Bleeding, Increased Pain/ Swelling, Increased Redness and Foul Smelling Discharge Call your doctor if you observe: Fever of 101 or Higher Suture Line Care: Avoid Pulling/Pushing and Avoid Pinching/Bending Remove Dressing in: 2 days (Remove clear bandages in 2 days, remove Steri-Strips in 7 to 10 days.) Follow Up Care Please Follow Up With: Fortino Zhu MD When: Please call to schedule 2 week follow up appointment. [phone] Test Results: Test results from this visit will be discussed in further detail at your follow- up appointment, if applicable. Discharge Plan Admission Attending Provider: Fortino Zhu Primary Care Provider: Everett Champion Consulting Providers: Romeo Guzman Instructions Print Language: Zambian Discharge Orders/Prescriptions Prescriptions: New oxycodone 5 mg Tablet 5 - 10 mg PO Q4H PRN PRN (Reason: Pain Score 4-10) 5 Days Qty: 10 0RF No Action amlodipine 10 mg tablet 10 mg PO QDAY atorvastatin 20 mg tablet 20 mg PO QDAY fluticasone propionate 50 mcg/actuation spray,suspension 2 spray intranasal DAILY PRN (Reason: nasal congestion) lisinopril 40 mg tablet 40 mg PO QDAY Other Ambulatory Orders: 12 Lead EKG (Routine) Timeframe: 20240815 Location: None Selected Ordered By: Dr. Romeo Guzman Referrals / Follow Up: Everett Champion MD [Primary Care Provider] - Disposition Disposition (needs filled in before D/C Order can be placed): Home, Self Care
== END 2024-08-24 11:25 | disposition home or self-care (01) ==
LOC: SDC 06:50 → AC 06:51
PROVIDERS: Anesthesiology; PCP Family Medicine; Referring Provider Surgery; Visit Provider Surgery
PROC: (CPT 49650; principal; 2024-08-24 08:45)
DX: K40.90 Unilateral inguinal hernia, without obstruction or gangrene, not specified as recurrent (principal); F17.210 Nicotine dependence, cigarettes, uncomplicated; J38.1 Polyp of vocal cord and larynx; I10 Essential (primary) hypertension; E78.00 Pure hypercholesterolemia, unspecified; F12.90 Cannabis use, unspecified, uncomplicated
CPT/HCPCS: 49650; S2900; 00840; 36415; 80076; 85027; 85610; 85730; 93005; J2405

== ENCOUNTER → 2025-02-27 | Outpatient (CLI) | payer MEDICAID, SELFPAY ==
--- NOTE | 2025-02-27 12:23 | BD_ITS ---
PROCEDURE: DEXA BONE DENSITY STUDY 02/27/2025 REASON FOR EXAM: M, age 64 y/o . Postmenopausal. TECHNIQUE: Procedure Code: BDDBD Modality: DX Procedure: DEXA BONE DENSITY STUDY COMPARISON: None FINDINGS: BMD and T-SCORES Lumbar spine: 0.871 g/cm2, T-score -2.0 Levels: L1 through L4 Left femoral neck: 0.605 g/cm2, T-score -2.4 Femoral neck comparison data not recommended for monitoring change. Left total hip: 0.675 g/cm2, T-score -2.4 Right femoral neck: 0.565 g/cm2, T-score -2.7 Femoral neck comparison data not recommended for monitoring change. Right total hip: 0.676 g/cm2, T-score -2.4 The World Health Organization has defined the following categories based on bone density: Normal bone density: T-score equal to or greater than -1.0 Osteopenia: T-score between -1.0 and -2.5 Osteoporosis: T-score equal to or less than -2.5 FRAX (or Comparable) Fracture Risk Assessment: 10 Year Probability of Fracture: Major Osteoporotic Fracture: 9.1% Hip Fracture: 4.2% (Note: FRAX is not to be reported in setting of normal range bone density, osteoporosis on DEXA, known history of osteoporosis, prior osteoporotic hip or vertebral fracture, or for any patient undergoing pharmacological treatment for bone loss.) The National Osteoporosis Foundation (NOF) recommends pharmacological treatment for patients with a FRAX 10-year risk of 3% or higher for a hip fracture, or 20% or higher for a major osteoporotic fracture, to prevent osteoporosis and reduce fracture risk. The patient does meet the pharmacological treatment recommendations for prevention of osteoporosis. BD/Dexa Bone Density Study IMPRESSION: OSTEOPOROSIS. Recommend follow-up as clinically warranted. Reading Location: [place] [address]
--- OUTSIDE RECORDS SUMMARY | 2025-02-27 21:28 | XMS RPT_ITS | CCD ---
Author Organization [facility] CliniSymn Care Team Providers Care Park Activities Coordinator Name Role Phone JAMES WADDELL Unavailable Unavailable TAYE CUNHA Unavailable UnavailJUDY Jo Unavailable Unavailable TAYE CUNHA Unavailable Unavailalejandra CUNHA, TAYE BLOUNTW Unavailable UnavailJAMES Rosa Unavailable Unavailable TAYE CUNHA Unavailable UnavailJUDY Jo Unavailable Unavailable TAYE CUNHA Unavailable Unavailalejandra e ALPHONSE, TAYE GUPTA Unavailable Unavailabl e Unavailable Primary Care Provider UnavailCARLOS Lopez Referring Unavailable CARLOS NIELSEN Attending Unavailable Akira CONNOLLY, Dr. Floyd Primary Care Provider Akira CONNOLLY, Dr. Floyd Referring Provider [phone] Marko CONNOLLY, Dr. Freitas Attending Provider Dr. Nicolas Hayes MD Attending Provider Dr. Fortino Zhu MD Referring Provider [phone] Akira CONNOLLY, Dr. Floyd Attending Provider Thomas CONNOLLY, Dr. Walters Other Provider Marko CONNOLLY, Dr. Freitas Other Provider Everett Champion Referring Unavailable Everett Champion Primary Care Unavailable Everett Champion Attending Unavailable Everett Champion Primary Care Unavailable Fortino Zhu Attending Unavailable Fortino Zhu Referring Unavailable Romeo Guzman Consulting Unavailable Everett Champion Primary Care Unavailable Fortino Zhu Attending Unavailable Everett Champion Primary Care Unavailable Fortino Zhu Attending Unavailable Everett Champion Referring Unavailable Everett Champion Primary Care Unavailable Fortino Zhu Referring Unavailable Nicolas Hayes Attending Unavailable Everett Champion Primary Care Unavailable Romeo Guzman Consulting Unavailable Fortino Zhu Attending Unavailable Fortino Zhu Referring Unavailable Fortino Zhu Consulting Unavailable Everett Champion Primary Care Unavailable Everett Champion Attending Unavailable Everett Champion Referring Unavailable Everett Champion Primary Care Unavailable Everett Champion Attending Unavailable Everett Champion Referring Unavailable Everett Champion Primary Care Unavailable Everett Champion Attending Unavailable Everett Champion Referring Unavailable Medications Current Medications Medication Drug Class(es) Dates Sig (Normalized) Sig (Original) [id number] 200 actuat albuterol 0.09 mg/actuat metered dose inhaler (4 sources) beta2-Adrenergic Agonist Start: 03-07-2020 take 2 puff(s) by inhalation every six hours as needed albuterol HFA (PROAIR HFA) 90 mcg/actuation inhaler Inhale 2 Puffs as instructed every 6 hours as needed. 8 g 03/07/2020 Active amLODIPine 10 mg oral tablet (6 sources) Dihydropyridine Calcium Channel Bárbara Start: 01-24-2024 take 1 tablet by mouth once daily Amlodipine 10 mg tablet Active 10 mg PO daily January 24, 2024 12:00am atorvastatin 20 mg oral tablet (6 sources) HMG-CoA Reductase Inhibitor Start: 01-24-2024 take 1 tablet by mouth once daily Atorvastatin 20 mg tablet Active 20 mg PO daily January 24, 2024 12:00am benzonatate 100 mg oral capsule (4 sources) Non-narcotic Antitussive Start: 03-07-2020 take 2 capsules by mouth every eight hours as needed benzonatate (TESSALON PERLES) 100 mg capsule Take 2 capsules by mouth three times daily as needed. 30 capsule 03/07/2020 Active ciprofloxacin 500 mg oral tablet (4 sources) Quinolone Antimicrobial Start: 04-06-2024 take 1 tablet by mouth every twelve hours ciprofloxacin HCl (CIPRO) 500 mg tablet Take 1 tablet by mouth every 12 hours. 04/06/2024 Active fluticasone propionate 0.05 mg/actuat metered dose nasal spray (2 sources) Corticosteroid Start: 01-24-2024 Fluticasone Propionate 50 mcg/actuation spray,suspension Active 2 NMA INTRANASAL DAILY as needed for nasal congestion January 24, 2024 12:00am lisinopril 40 mg oral tablet (9 sources) Angiotensin Converting Enzyme Inhibitor Start: 01-24-2024 take 1 tablet by mouth once daily Lisinopril 40 mg tablet Active 40 mg PO daily January 24, 2024 12:00am Start: 05-02-2021 End: 01-24-2024 take 1 tablet by mouth once daily Lisinopril 5 mg tablet Discontinued 5 mg PO DAILY May 02, 2021 1:00am January 24, 2024 9:38am oxyCODONE hydrochloride 5 mg oral tablet (2 sources) Opioid Agonist Start: 08-24-2024 take 5-10 mg by mouth every four hours as needed for pain Oxycodone 5 mg Tablet Active 5 - 10 mg PO EVERY 4 HOURS NEEDED as needed for Pain Score 4-10 10 5 August 24, 2024 Completed/Discontinued Medications Medication Drug Class(es) Dates Sig (Normalized) Sig (Original) hydroCHLOROthiazide 12.5 mg oral tablet (3 sources) Thiazide Diuretic Start: End: take 1 tablet by mouth once daily Hydrochlorothiazide 12.5 mg tablet Discontinued 12.5 mg PO DAILY May 02, 2021 1:00am April 06, 2024 9:05am Problems Active Problems Problem Classification Problem Date Documented Da te Episodic/Chronic Cancer; other and unspecified primary (1 source) Malignant neoplasm of other specified ill-defined sites; Translations: [Malignant neoplasm of other specified ill-defined sites] Onset: 05-03-2024 Chronic Disorders of lipid metabolism (2 sources) Hypercholesterolemi a; Translations: [Pure hypercholesterolemi a, unspecified] 01-24-2024 Chronic Essential hypertension (4 sources) Essential (primary) hypertension; Translations: [Hypertensive disorder] Onset: 10-28-2017 08-14-2024 Chronic Comment on above: per pt, controlled o n meds Hypertension with complications and secondary hypertension (3 sources) Hypertensive urgency ; Translations: [Hypertensive urgency] 05-10-2021 Chronic Other screening for suspected conditions (not mental disorders or infectious disease) (4 sources) Raised prostate specific antigen; Translations: [Elevated prostate specific antigen [PSA]] Onset: 05-23-2024 05-24-2024 Episodic Residual codes; unclassified (1 source) Tobacco use; Translations: [Tobacco use] Onset: 02-15-2025 Episodic Substance-related disorders (3 sources) Smoker; Translations: [Nicotine dependence, unspecified, uncomplicated] Onset: 08-31-2024 01-24-2024 Chronic Substance-related disorders (2 sources) Marijuana user; Translations: [Cannabis use, unspecified, uncomplicated] 08-14-2024 Episodic Comment on above: smokesapprox once WE EKLY Past or Other Problems Problem Classification Problem Date Documented Da te Episodic/Chronic Abdominal hernia (5 sources) Right inguinal hernia ; Translations: [Unilateral inguinal hernia, without obstruction or gangrene, not specified as recurrent] Onset: 09-05-2024 01-24-2024 Episodic Other lower respiratory disease (1 source) Shortness of breath; Translations: [Shortness of breath] Onset: 07-28-2017 Episodic Results Test Name Value Interpretation Reference Range Facility Discharge Instructionon 08-12 Discharge Instruction [facility] Medical Records Department [address] [place] [address] Instructions for Home/Discharge Instructions 08/24/24 0943 MR#: [id number] Acct: [id number] Name: DB PALOMARES Rep #: [id number] : 1960 64 From: Fortino Zhu MD PCP: Dr. Everett Champion MD Status:REG [facility] Discharge Instructions Procedure Hernia Diet Discharge Diet: Light diet - advance as tolerated Activity Discharge Activity: May Not Drive (for 2-3 days or while taking narcotic pain meds.) and May Shower (with the bandage in place 1-2 days after surgery.) Lifting Restrictions: 20 pounds for 4 weeks. Additional Activity Instructions:: Climbing stairs is fine, walking is encouraged. Sitting in bed may be uncomfortable. Sitting up using your lateral muscles (sitting up sideways) is usually more comfortable. Do not drive, work heavy equipment of sign legal documents for 24 hours. If your hernia repair was an inguinal repair, you may have scrotal swelling, an ice pack and/or athletic support can provide more comfort. Pain medications may cause nausea, you should typically eat light foods as you take your pain medications. Pain medications may also cause constipation. If you have difficulty with this, discuss with your doctor. Alternate ibuprofen and Tylenol for pain control, oxycodone for breakthrough pain Dressing / Incision Call your doctor if your incision/area has: Continuous Slow Oozing, Sudden Increased Bleeding, Increased Pain/ Swelling, Increased Redness and Foul Smelling Discharge Call your doctor if you observe: Fever of 101 or Higher Suture Line Care: Avoid Pulling/Pushing and Avoid Pinching/Bending Remove Dressing in: 2 days (Remove clear bandages in 2 days, remove Steri-Strips in 7 to 10 days.) Follow Up Care Please Follow Up With: Fortino Zhu MD When: Please call to schedule 2 week follow up appointment. [phone] Test Results: Test results from this visit will be discussed in further detail at your follow-up appointment, if applicable. Discharge Plan Admission Attending Provider: Fortino Zhu Primary Care Provider: Everett Champion Consulting Providers: Romeo Guzman Instructions Print Language: Tunisian Discharge Orders/Prescription s Prescriptions: New oxycodone 5 mg Tablet 5 - 10 mg PO Q4H PRN PRN (Reason: Pain Score 4-10) 5 Days Qty: 10 0RF No Action amlodipine 10 mg tablet 10 mg PO QDAY atorvastatin 20 mg tablet 20 mg PO QDAY fluticasone propionate 50 mcg/actuation spray,suspension 2 spray intranasal DAILY PRN (Reason: nasal congestion) lisinopril 40 mg tablet 40 mg PO QDAY Other Ambulatory Orders: 12 Lead EKG (Routine) Timeframe: [id number] Location: None Selected Ordered By: Dr. Roemo Guzman Referrals / Follow Up: Everett Champion MD [Primary Care Provider] - Disposition Disposition (needs filled in before D/C Order can be placed): Home, Self Care 08/24/2445 Fortino Zhu MD CC: Dr. Romeo Guzman MD; Dr. Everett Champion MD Signed [facility] MR/POSTOP.Cyn 08-24-2024 MR/POSTOP.[facility] Medical Records Department [address] [place] [address] Anesthesia Postop Eval I 08/24/24 0900 MR#: [id number] Acct: [id number] Name: LUZHARLEENDB E Rep #: [id number] : 1960 64 From: Anthony Correa CRNA PCP: Dr. Everett Champion MD Status:REG [facility] Y Race: C Location: [place] [address] Anesthesia: Postop Eval I Current Vital Signs Temperature: 96.8 F Pulse Rate: 80 Blood Pressure: 150/80 Respiratory Rate: 18 Pulse Ox: 98 Oxygen Delivery Method: Nasal Cannula Oxygen Flow Rate (L/min): 2 Assessment Airway patent: Yes Spontaneous unlabored respirations: Yes Mental status: Awake and Calm nausea: No Vomiting: No Anesthesia Complication: No Fluid Hydration Crystalloid volume administer (ml): 800 Total IV fluid infused: 800 Progress Note Anesthesia document: Postop Eval 1 completed: Yes 08/24/24 09 Date Anthony Correa PNEUMATIC TUBE REPAIRER Cosigner Signature: Date CC: Signed Normal [facility] [id number] 08-24-2024 [facility] Medical Records Department [address] [place] [address] Anesthesia Postop Eval II 08/24/24923 MR#: [id number] Acct: [id number] Name: DB PALOMARES Rep #: [id number] : 1960 64 From: Moses Weeks MD PCP: Dr. Everett Champion MD Status:REG [facility] Y Race: C Location: [place] [address] Anesthesia Postop Eval I Sum Postop Eval Completion status Anesthesia document: Postop Eval 1 completed: Yes Anesthesia Postop Eval I Summary Anesthesia Postop Eval I Summary: Anesthesia Postop Eval I: Assessment Summary Airway patent Yes 08/24/24 09:00 PNEUMATIC TUBE REPAIRER.JCFANI Spontaneous unlabored Yes 08/24/24 09:00 PNEUMATIC TUBE REPAIRER.JCLI respirations Mental status Awake,Calm 08/24/24 09:00 PNEUMATIC TUBE REPAIRER.JCLI nausea No 08/24/24 09:00 PNEUMATIC TUBE REPAIRER.JCLI Vomiting No 08/24/24 09:00 PNEUMATIC TUBE REPAIRER.DIMITRIOS Anesthesia Postop Eval I: Fluid Summary Crystalloid volume administer 800 08/24/24 09:00 PNEUMATIC TUBE REPAIRERISREAL (ml) Colloids volume administered ( ml) Blood Product volume administered (ml) Total IV fluid infused 800 08/24/24 09:00 PNEUMATIC TUBE REPAIRER.DIMITRIOS Anesthesia Postop Eval I: Summary Notes Anesthesia Complication No 08/24/24 09:00 PNEUMATIC TUBE REPAIRER.DIMITRIOS Anesthesia Complication Comment: Post-operative progress note Anesthesia: Postop Eval II Evaluation Mental status: Awake Pain Level: 6 (Receiving dilaudid.) nausea: No Vomiting: No Complications Anesthesia Complication: Yes Anesthesia Complication Comment:: 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 I personally spoke to the patient in PACU regarding this finding, and advised the patient that he will need to follow up with ENT as soon as possible for further management and workup. The patient understood and verbalized understanding. The need for follow/up with ENT was reiterated to the patient by the surgeon and the PACU staff. The polyps are three in number, and are at at the anterior, left side of the vocal cords. At this time, no vocal cord compression or tracheal compression was noted due to the mass. I advised the patient that the polyps could be secondary to a benign process or could be a more inflammatory process such as a cancerous process. The patient understands and has stated he will follow up with ENT upon discharge. 08/24/24926 Date Moses Weeks MD Cosigner Signature: Date CC: Signed Normal [facility] Operative Reporton Operative Report [facility] Medical Records Department [address] [place] [address] Operative Report 08/24/24939 MR#: [id number] Acct: [id number] Name: DB PALOMARES Rep #: [id number] : 1960 64 From: Fortino Zhu MD PCP: Dr. Everett Champion MD Status:REG [facility] Location: [place] [address] Operative Report (Standard) Operative Information Date of Procedure: 08/24/24 Pre-Operative Diagnosis: Right inguinal hernia Post-Operative Diagnosis: Right inguinal hernia Surgery/Procedure Performed: Robotic assisted laparoscopic right inguinal hernia repair with mesh wage hand: Yes Label Printer: Kandi Solano Tasks completed by medical claims assistant: Opening and Closing Type of Anesthesia: Block,Axillary RN Documented Start/Stop Times: Operation Date: 08/24/24 09:00 Case Time Into Pre-Op 08/24/24 07:02 Out of Pre-Op 08/24/24 07:55 Anesthesia Start 08/24/24 08:00 Into Room 08/24/24 08:00 Procedure Start 08/24/24 08:19 Procedure End 08/24/24 08:47 Anesthesia End 08/24/24 08:54 Out of Room 08/24/24 08:54 Into Recovery 08/24/24 08:56 Procedure Start Time: 08:19 Procedure Stop Time: 08:47 Select all DRAINS/GRAFTS/IMPLA NTS that apply: Implanted device Implanted device details: ProGrip mesh Estimated Blood Loss: 5 Specimen collected: No Description of surgery: The patient was brought back to the operating room and general anesthesia was induced. Of note the patient had polyps on his epiglottis and he was recommended to follow-up with ENT. After intubation the patient was prepped and draped in usual sterile fashion. A midline incision was made superior to the umbilicus and deepened to the fascia which was elevated and a Veress needle was placed into the abdomen and a drop test was performed. The abdomen is insufflated 15 mmHg. Veress needle was removed and a port was placed the care was placed into the abdomen and there were no injuries from entry. The patient was placed in Trendelenburg position and the inguinal regions were inspected. The patient had a small inguinal hernia on the right. Under direct visualization an 8 mm port was placed in the right lateral abdomen as well as the left lateral abdomen and then the robot was docked. Using electrocautery scissors the right peritoneum in the inguinal region was incised and dissection was carried inferiorly until the hernia sac was encountered. Once the hernia sac was reduced the inguinal canal was inspected and there was no lipoma. I was able to see all the way to the external ring. Next ProGrip mesh was unfolded over the hernia defect and then the peritoneum was reapproximated using a running 3 OV lock suture. The mesh was completely covered by peritoneum at the end of the case. Patient was awoken and brought to PACU in stable condition and tolerated the procedure well. Surgical Findings: Right inguinal hernia, polyps on epiglottis Complications Complications: No Admit VTE Documentation VTE Mechan Device Prophylaxis: SCD's 08/24/24 0942 Cosigner Signature (if applicable): CC: Dr. Fortino Zhu MD; Dr. Romeo Guzman MD; Dr. Everett Champion MD Signed Normal [facility] Low Dose CT Lung Screeningon 08-18-[address] Lung Screening [facility] Imaging Services [address] [place] [address] Lung Screening MR#: [id number] Acct: [id number] Name: DB PALOMARES Rep #: [id number] : 1960 M 64 From: Rick barrera MD PCP: Dr. Everett Champion MD Status: REG CLI Study: Low Dose CT Lung Screening Date of Exam: 08/18 Exam# [id number] Ordering Dr: Everett Champion M D PROCEDURE: LOW DOSE CT LUNG SCREENING REASON FOR EXAM: Current smoker. Patient has smoked 1-1/2 pack per day for 56 years. TECHNIQUE: Low Dose CT Lung Screening without contrast COMPARISON: Comparison is made with prior study dated August 17, 2023. FINDINGS: PULMONARY NODULES: (Only nodules >6mm are reported) Nodules described below are on series 1 unless otherwise specified. Pulmonary Nodules: Stable 5 mm noncalcified nodule in the posterior aspect of the right upper lobe as seen on axial image number 47. Hardware:None Lymph Nodes:No mediastinal hilar or axillary lymphadenopathy. Heart and Vasculature:Normal heart size. No pericardial effusion.Thoracic aorta and pulmonary arteries have normal contours; noncontrast technique limits evaluation. Coronary Artery Calcifications: Present Lungs and Airways: Mild emphysematous changes are present. Pleura:No pleural effusion. No pneumothorax. Upper Abdomen:Visualized portions of the upper abdominal viscera are unremarkable. Bones:Degenerative changes of the thoracic spine. CT/Low Dose CT Lung Screening IMPRESSION: 1. BASED ON THE ACR LUNG RADS FOR THE MOST SUSPICIOUS NODULE (IF ANY) DESCRIBED IN THIS REPORT, THE OVERALL LUNG RADS SCORE IS 2.2 - BENIGN (BASED ON IMAGING FEATURES OR INDOLENT BEHAVIOR). RECOMMEND 12-MONTH SCREENING LDCT.. 2. SMOKING CESSATION COUNSELING IS RECOMMENDED IF THE PATIENT IS STILL SMOKING. 3. OTHER SIGNIFICANT FINDINGSNone. One or more dose reduction techniques were used (e.g., Automated exposure control, adjustment of the mA and/or kV according to patient size, use of iterative reconstruction technique). The following information is provided for reference:Lung-RADS 2022 Assessment Categories. Additional information involving Lung-RADS is available at www.acr.org. 0-INCOMPLETE 1-NEGATIVE:No nodules or definitely benign nodules. Complete, central, popcorn, or centric ring calcifications OR fat containing 2-BENIGN APPEARANCE (based on imaging features or indolent behavior). Juxtapleural nodule: < 10mm AND solid; smooth margins; oval, entiform, or triangular shape Solid nodule: <6mm at baseline or new< 4mm Part solid Nodule: < 6mm total mean diameter at baseline Nonsolid nodule:(GGN) < 30mm OR >=30mm stable or slowly growing Airway nodule, subsegmental at baseline, new, or stable Category 3 nodule stable or decreased in size at 6-month follow-up CT or Category 3 or 4A nodules that resolve on follow-up OR category 4B findings proven to be benign following diagnotic work up. 3 - Probably Benign (Based on imaging features or behavior) Solid Nodule: >= 6 to <8mm at baseline OR new 4 to <6mm Part-solid nodule: >= 6mm toal mean diam. with solid component <6mm at baseline OR new < 6mm total mean diam. Non-solid nodule: GGN >= 30mm at baseline or new Atypical pulmonary cyst: Growing cystic component (mean diam.) of thick-walled cyst Category 4A nodule stable or decreased in size at 3-month follow-up CT (excl.airway). 4A - Suspicious Solid nodule: >=8 to < 15mm at baseline OR growing < 8mm OR new 6 to < 8mm Part solid nodule: >= 6mm total mean diam. w/ solid component >=6mm to < 8mm at baseline OR new or growing < 4mm solid component Airway nodule, segmental or more proximal at baseline or new Atypical pulmonary cyst: Thick-walled OR multilocular at baseline OR becomes multilocular 4B - Very Suspicious Airway nodule, segmental or more proximal, and stable or growing Solid nodule: >= 15mm at baseline OR new or growing >= 8mm Part solid nodule: Solid component >= 8mm OR new or growing >= 4mm solid component Atypical pulmonary cyst: Thick-walled with growing wall thickness/nodularit y OR Growing multilocular (mean diam.) OR Multilocular with increased loculation or new/increased opacity Slow-growing solid or part solid nodule w/ growth over multiple screening exams 4X - Very Suspicious Category 3 or 4 nodules with additional features that increase the suspicion for lung cancer. S - Clinically Significant or potentially significant findings (non-lung cancer) Reading Location: [facility] CC: Dr. Everett Champion MD Roto Mixer Operator: Signed Normal [facility] Electrocardiogram reportOrde red By: Nicolas Hayes on 08-16-2024 EKG study [facility] Cardiovascular Services [address] [place] [id number] 12 Lead EKG 08/15/24 1025 MR#: [id number] Acct: [id number] Name: DB PALOMARES Rep #:[id number] : 1960 64 From: Nicolas dumas MD Attending Dr: Dr. Fortino Zhu MD Status: PRE [facility] Ordering Dr: Fortino Zhu MD Farhad e: 08/15/24 Location: [facility] Sex: M C Admitted: Test Reason : PREOP Blood Pressure : */* mmHG Vent. Rate : 60 BPM Atrial Rate : 60 BPM P-R Int : 148 ms QRS Dur : 78 ms QT Int : 382 ms P-R-T Axes : 76 24 76 degrees QTcB Int : 382 ms Normal sinus rhythm Possible Left atrial enlargement Borderline ECG Confirmed by Nicolas Hayes ([id number]), electronic news gathering editor [facility] ([id number]) on 08/16/2024 5:57:20 AM Referred By: Fortino Zhu Confirmed By: Nicolas Hayes 08/16/24 0557 Date _ Nicolas Hayes MD CC: Dr. Fortino Zhu MD; Dr. Everett Champion MD ~ Signed [facility] Work Phone: MR/PAT.Cyn 08-16-2024 MR/PAT.NANDINI [facility] Medical Records Department [address] [place] [address] PAT - Anesthesia 08/16/24 09 MR#: [id number] Acct: [id number] Name: DB PALOMARES Rep #: [id number] : 1960 64 From: Romeo Guzman MD PCP: Dr. Everett Champion MD Status:PRE [facility] Y Race: C Location: [facility] Pre-Assessment Diagnosis/Proposed Procedure Planned Operative Procedure(s): (R) Lap Robotic Inguinal Hernia w/mesh Anesthesia History Anesthesia History - medical office manager: Anesthesia History - medical office manager Hx Hospitalization No 08/14/24 08:03 Any Problems With Anesthesia No 08/14/24 08:03 Cholinesterase deficiency No 08/14/24 08:03 You/Your Family Experience No 08/14/24 08:03 fever (hyperthermia) with Relationship Recent Exposure to Contagious Disease Does patient have nerve No 08/14/24 08:03 stimulator Patient instructed to have device shut off --Does patient have Pacemaker or ICD? When Was Last Pacemaker Check QUESTION #4 FULL TEXT: You/Your Family Experience fever (hyperthermia) with Anesthesia Last Oral Intake Last Oral intake: Last Oral Intake NPO since Meds taken in AM with sips of water? Meds patient instructed to take am of surgery PONV PONV - medical office manager: PONV - medical office manager Female No 08/14/24 08:03 HX of Motion Sickness No 08/14/24 08:03 HX of N/V After Surgery No 08/14/24 08:03 Non-Smoker No 08/14/24 08:03 Duration of Surgery greater Yes 08/14/24 08:03 than 60 minutes Number of Risk Factors 1 08/14/24 08:03 PONV Score Low Risk 08/14/24 08:03 Height Weight Height Weight: Anesthesia: Height Weight Height 5 ft 7 in 08/14/24 08:48 Respiratory Assessment Respiratory Assessment - medical office manager: Respiratory Tract Infection Hx - medical office manager Hx Respiratory Tract Infection No 08/14/24 08:03 STOP Sleep Apnea STOP Sleep Apnea - medical office manager: STOP Sleep Apnea - medical office manager Hx Hypertension Yes: per pt, CONTROLLED WITH 08/14/24 08:03 MED Hx Sleep Apnea No 08/14/24 08:03 CPAP BIPAP Do you snore loudly (louder No 08/14/24 08:03 than talking or can be heard Do you often feel tired/ No 08/14/24 08:03 fatigued/ sleepy during daytime? Has anyone observed you stop No 08/14/24 08:03 breathing during sleep? STOP Results Negative 08/14/24 08:03 QUESTION #5 FULL TEXT : Do you snore loudly (louder than talking or can be heard through closed doors)? 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 Specify any problems Hx of Preganancy in last 3 N/A 08/14/24 08:03 Months Nurse Filling Out Transfusion MGRIFFITH 08/14/24 08:03 Questions: Date: 08/14/24 08/14/24 08:03 Time: 08:04 08/14/24 08:03 Patient unable to answer at this time (ie. 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 Hx Now Gestational Age (in weeks): EDC: Hx Hx Para Hx Section SAB No 04/06/24 09:05 PFSH Medical History Cancer Easy bruising Wears glasses No natural teeth Alcohol use Syncope Prostate disease BPH (benign prostatic hyperplasia) History of stress test High cholesterol HTN (hypertension) Smoker Marijuana use Home Medications ???Medication ???Instructions ???Recorded ???Last Taken ???Type amlodipine 10 mg tablet 10 mg PO QDAY 01/24/24 Unknown His tory atorvastatin 20 mg tablet 20 mg PO QDAY 01/24/24 Unknown His tory fluticasone propionate 50 2 spray intranasal DAILY PRN nasal 01/24/24 Unknown History mcg/actuation nasal congestion spray,suspension lisinopril 40 mg tablet 40 mg PO QDAY 01/24/24 Unknown His tory Allergy/AdvReac Type Severity Reaction Status Date / Time No Known Allergies Allergy Verified 08/14/24 08:50 Family History Mother Cancer stomach Brother Heart disease Father Cancer ski (more content not included)... Normal [facility] 12 Lead EKGon 08-15-2024 12 Lead EKG [facility] [address] [place] [address] 12 Lead EKG 08/15/24 1025 MR#: [id number] Acct: [id number] Name: DB PALOMARES Rep #: [id number] : 1960 64 From: Nicolas Hayes MD Attending Dr: Dr. Fortino Zhu MD Status: PRE [facility] Ordering Dr: Fortino Zhu MD Date: 08/15/24 Location: [facility] Sex: M C Admitted: Test Reason : PREOP Blood Pressure : */* mmHG Vent. Rate : 60 BPM Atrial Rate : 60 BPM P-R Int : 148 ms QRS Dur : 78 ms QT Int : 382 ms P-R-T Axes : 76 24 76 degrees QTcB Int : 382 ms Normal sinus rhythm Possible Left atrial enlargement Borderline ECG Confirmed by Nicolas Hayes ([id number]), electronic news gathering editor KAISER CORTES ([id number]) on 08/16/2024 5:57:20 AM Referred By: Fortino Zhu Confirmed By: Nicolas Hayes 08/16/24 0557 Date Nicolas Hayes MD CC: Dr. Fortino Zhu MD; Dr. Everett Champion MD Signed Normal [facility] Bilirubin directOrdered By: Romeo Guzman on 08-15-2024 Bilirubin.direct [Mass/Vol] 0.32 mg/dL High 0.00-0.30 [facility] Bilirubin, totalOrdered By: Romeo Guzman on 08-15-2024 Bilirubin [Mass/Vol] 1.04 mg/dL 0.00-1.30 [facility] CBC-Complete Blood Cnt No Di ffon 08-15-2024 Erythrocyte distribution width (RBC) [Ratio] 12.5 % Normal 11.6-14.6 [facility] Comment on above: Performed By: #### L 501.9520, L500.4050, L100.0100, L501.9940, L101.9900 #### [facility] [address] [place], [address] Hematocrit (Bld) [Volume fraction] 48.3 % Normal 40-54 [facility] Comment on above: Performed By: #### L 501.9520, L500.4050, L100.0100, L501.9940, L101.9900 #### [facility] [address] [place], [address] Hemoglobin (Bld) [Mass/Vol] 16.3 g/dL Normal 13.0-16.5 [facility] Comment on above: Performed By: #### L 501.9520, L500.4050, L100.0100, L501.9940, L101.9900 #### [facility] [address] [place], [address] MCH (RBC) [Entitic mass] 29.7 pg Normal 27.0-32.0 [facility] Comment on above: Performed By: #### L 501.9520, L500.4050, L100.0100, L501.9940, L101.9900 #### [facility] [address] [place], [address] MCHC (RBC) [Mass/Vol] 33.7 g/dL Normal 32-36 [facility] Comment on above: Performed By: #### L 501.9520, L500.4050, L100.0100, L501.9940, L101.9900 #### [facility] [address] [place], [address] MCV (RBC) [Entitic vol] 88.1 fL Normal 80-94 [facility] Comment on above: Performed By: #### L 501.9520, L500.4050, L100.0100, L501.9940, L101.9900 #### [facility] [address] [place], [address] Platelet mean volume (Bld) [Entitic vol] 9.6 fL Normal 6.2-12.0 [facility] Comment on above: Performed By: #### L 501.9520, L500.4050, L100.0100, L501.9940, L101.9900 #### [facility] [address] [place], [address] Platelets (Bld) [#/Vol] 223 10*3/uL Normal 150-450 [facility] Comment on above: Performed By: #### L 501.9520, L500.4050, L100.0100, L501.9940, L101.9900 #### [facility] [address] [place], [address] RBC (Bld) [#/Vol] 5.48 10*6/uL Normal 4.6-6.2 [facility] Comment on above: Performed By: #### L 501.9520, L500.4050, L100.0100, L501.9940, L101.9900 #### [facility] [address] [place], [address] RDW SD 40.7 fl Normal 35.1-43.9 [facility] Comment on above: Performed By: #### L 501.9520, L500.4050, L100.0100, L501.9940, L101.9900 #### [facility] [address] [place], [address] WBC (Bld) [#/Vol] 10.6 10*3/uL Normal 4.4-11.0 [facility] Comment on above: Performed By: #### L 501.9520, L500.4050, L100.0100, L501.9940, L101.9900 #### [facility] [address] [place], [address] Erythrocyte distribution wid th ratioOrdered By: Romeo Guzman on 08-15-2024 Erythrocyte distribution width (RBC) [Ratio] 12.5 % 11.6-14.6 [facility] Erythrocyte distribution wid th standard deviationOrdered By: Romeo Guzman on 08-15-2024 Erythrocyte distribution width (RBC) [Entitic vol] 40.7 fL 35.1-43.9 [facility] Hematocrit Auto (Bld) [Volum e fraction]Ordered By: Romeo Guzman on 08-15-2024 Hematocrit (Bld) [Volume fraction] 48.3 % 40-54 [facility] Hemoglobin measurementOrdere d By: Romeo Guzman on 08-15-2024 Hemoglobin (Bld) [Mass/Vol] 16.3 g/dL 13.0-16.5 [facility] normalized rat io (INR) calculationOrdered By: Romeo Guzman on 08-15-2024 INR Coag (Bld) [Relative time] 1.0 {INR} [facility] - Chemistry and C hemistry - challengeOrdered By: Romeo Guzman on 08-15-2024 AST [Catalytic activity/Vol] 21 U/L <38 [facility] Liver Profileon 08-15-2024 AST [Catalytic activity/Vol] 21 U/L Normal <=37 [facility] Comment on above: Performed By: #### L 501.9520, L500.4050, L100.0100, L501.9940, L101.9900 #### [facility] [address] [place], [place], [id number] MCV (mean corpuscular volume ) determinationOrdered By: Romeo Guzman on 08-15-2024 MCV (RBC) [Entitic vol] 88.1 fL 80-94 [facility] Mean corpuscular hemoglobin (MCH) determinationOrdered By: Romeo Guzman on 08-15-2024 MCH (RBC) [Entitic mass] 29.7 pg 27.0-32.0 [facility] Mean corpuscular hemoglobin concentration (MCHC) determinationOrdered By: Romeo Guzman on 08-15-2024 MCHC (RBC) [Mass/Vol] 33.7 g/dL 32-36 [facility] Mean platelet volume determi nationOrdered By: Romeo Guzman on 08-15-2024 Platelet mean volume (Bld) [Entitic vol] 9.6 fL 6.2-12.0 [facility] Partial Thromboplast Timeon 08-15-2024 aPTT Coag (Bld) [Time] 26.4 s Normal 24.1-36.2 [facility] Comment on above: Performed By: #### L 501.9520, L500.4050, L100.0100, L501.9940, L101.9900 #### [facility] [address] [place], [place], [id number] Platelet countOrdered By: Kemal Guzman on 08-15-2024 Platelets (Bld) [#/Vol] 223 10*3/uL 150-450 [facility] Prothrombin Time w/INRon INR Coag (PPP) [Relative time] 1.0 {INR} Normal [facility] Comment on above: Performed By: #### L 501.9520, L500.4050, L100.0100, L501.9940, L101.9900 #### [facility] [address] [place], [place], [id number] PT Coag (PPP) [Time] 13.0 s Normal 11.7-14.9 [facility] Comment on above: Performed By: #### L 501.9520, L500.4050, L100.0100, L501.9940, L101.9900 #### [facility] [address] [place], [place], [id number] Prothrombin timeOrdered By: Romeo Guzman on 08-15-2024 PT Coag (PPP) [Time] 13.0 s 11.7-14.9 [facility] RBC Auto (Bld) [#/Vol]Ordere d By: Romeo Guzman on 08-15-2024 RBC (Bld) [#/Vol] 5.48 10*6/uL 4.6-6.2 [facility] Serum globulin measurementOr dered By: Romeo Guzman on 08-15-2024 Globulin (S) [Mass/Vol] 2.6 g/dL 2.2-4.2 [facility] Serum or plasma alanine sherman otransferase (ALT) measurementOrdered By: Romeo Guzman on 08-15-2024 ALT [Catalytic activity/Vol] 14 U/L <47 [facility] Serum or plasma albumin devyn urement (mass/volume)Ordered By: Romeo Guzman on 08-15-2024 Albumin [Mass/Vol] 4.6 g/dL 3.4-4.8 [facility] Serum or plasma alkaline momo sphatase measurementOrdered By: Romeo Guzman on 08-15-2024 ALP [Catalytic activity/Vol] 74 U/L 40-129 [facility] Total proteinOrdered By: Romeo Guzman on 08-15-2024 Protein [Mass/Vol] 7.2 g/dL 5.9-8.4 [facility] White blood cell (WBC) count Ordered By: Romeo Guzman on 08-15-2024 WBC (Bld) [#/Vol] 10.6 10*3/uL 4.4-11.0 [facility] aPTT Coag (PPP) [Time]Ordere d By: Romeo Guzman on 08-15-2024 aPTT Coag (Bld) [Time] 26.4 s 24.1-36.2 [facility] Surgery Visit Reporton 08-14 Surgery Visit Report [facility] [address] [place] [address] OFFICE VISIT Date of Service: 08/14/24 MR#: [id number] Acct: [id number] Name: DB PALOMARES Rep #: [id number] : 1960 Provider: Dr. Fortino spence MD Age/Sex: 64/M Location: [facility] Status: Signed Intake Vital Signs 01/24/24 09:36 08/14/24 08:47 08/14/24 08:48 Height 5 ft 7 in 5 ft 7 in 5 ft 7 in Weight: 120 lb 126 lb 4 oz 126 lb BMI 18.8 19.8 19.7 BP 171/92 H 169/90 H 169/90 H Blood Pressure Location Lt brachial Rt brachial Rt brachial Position Sitting Sitting Sitting Respiration 18 18 Pulse 71 Pulse Source Monitor Temp 97.1 F L Temp Source Temporal Pulse Oximetry (%) 97 Oxygen Delivery Method room air Intake Visit Reasons: UPDATE H P, R INGUINAL HERNIA Chief Complaint: update H P, R inguinal hernia Is patient in pain?: No Allergies No Known Allergies Allergy (Verified 08/14/24 08:50) Medications ???Medication ???Instructions ???Recorded ???Confirmed ???Type amlodipine 10 mg tablet 10 mg PO QDAY 01/24/24 08/14/24 Hi story atorvastatin 20 mg tablet 20 mg PO QDAY 01/24/24 08/14/24 Hi story fluticasone propionate 50 2 spray intranasal DAILY PRN nasal 01/24/24 08/14/24 History mcg/actuation nasal congestion spray,suspension lisinopril 40 mg tablet 40 mg PO QDAY 01/24/24 08/14/24 Hi story PFSH Medical History Cancer Easy bruising Wears glasses No natural teeth Alcohol use Syncope Prostate disease BPH (benign prostatic hyperplasia) History of stress test High cholesterol HTN (hypertension) Smoker Marijuana use Surgical History No history of previous surgery Family History Mother Cancer stomach Brother Heart disease Father Cancer skin Sister Thyroid disorder Social History household members: significant other Smoking Status: Current every day smoker tobacco type: cigarettes alcohol intake: current alcohol intake frequency: a few times a week substance use type: marijuana HPI HPI HPI: Patient is a 64-year-old male here for scheduling of his hernia repair. The patient has a right inguinal hernia and he is having pain on that side. I saw him over the summer for this and he would like his hernia repaired now that it is winter. He denies any new changes since last visit. ROS General General: Yes weight change and fatigue; No appetite, colon cancer, breast cancer or weakness HEENT HEENT: Yes eye injury and eye surgery; No difficulty swallowing, swollen glands or hoarseness Endo Endocrine: No thyroid disease, diabetes mellitus, thyroid cancer, Hair loss, heat intolerance or cold intolerance Skin Skin: No rash or changing moles Breast Breast: No left breast lump, right breast lump, nipple discharge, breast pain, abnormal mammogram, abnormal US or breast enlargement Musc Musculoskeletal: No back problems, arthritis, rheumatoid arthritis, gout or joint pain Cardio Cardiovascular: Yes high blood pressure; No murmur, pacemaker, heart disease, atrial fibrillation, heart attack, heart stent, palpitations, shortness of breat with exertion or chest pain Psych Psychiatric: Yes anxiety; No depression or hearing voices Resp Respiratory: No shortness of breath, No sleep apnea, No cough, No COPD, No asthma, No emphysema and No wheezing Gastro Gastrointestinal: Yes abdominal pain, No nausea or vomiting, No diarrhea, No constipation, No blood in stool, No acid reflux, No hemorrhoids, No ulcers, No gallbladder problem and No black,tarry stools Alek Hematologic: No blood thinners, No blood disorders, No bleeding, No anemia and No blood clots Neuro Neurologic: No system reviewed and no additional complaints, except as documented, No as per HPI, No abnormal gait, No abnormal hearing, No abnormal movements, No abnormal speech, No behavioral changes, No burning sensations, No confusion, No convulsions, No disequilibrium, No dizziness, No localized weakness, No frequent falls, No headache(s), No lack of coordination, No loss of vision, No memory loss, Yes numbness, No other visual disturbances, No radicular pain, No restless legs, No sensory deficit, No syncope, Yes tingling, No tremor(s), No weakness and No other Exam Const General: cooperative Orientation: alert and oriented x3 HENMT Head: normal to inspection Neck Neck: normal visual inspection and full ROM Chest Chest palpation inspection: normal inspection of the chest Resp Effort Inspection: normal respiratory effort Auscultation: clear to auscultation bilaterally Cardio Rate: regular rate Rhythm: regular rhythm (more content not included)... Normal [facility] 05-24-2024 [facility] Telephone (UROLST) ---- DB PALOMARES ([id number]) 1960 M Date Time Provider Department 05/24/24 CARLOS NIELSEN UROLSHallie During your visit today, we recorded the following information about you: Carlos Nielsen PA-C 05/24/2024 6:06 PM Signed Please notify patient that his IsoPSA came back at and a PSA of 5.3% The IsoPSA being less than 6.1 indicates low risk of high grade prostate cancer No prostate biopsy recommended at this time. Will; follow up with PSA in 1 year, I will release the results to [facility]. Carlos Nielsen [facility] [place], Erika Pimentel LPN 05/25/2024 11:21 AM Signed Called patient. Verified name and date of . Notified of results/orders. Verbalizes understanding. Erika Morales LPN Allergies As of Date: 05/24/2024 (No Known Allergies) Date Reviewed: 05/23/2024 Reviewed by: Carlos Nielsen PA-C - Fully Assessed Reason for Visit: Results [95] Orders [681] Primary Visit Diagnosis:Elevated prostate specific antigen (PSA) [R97.20] Order(s):PROSTATE-S PECIFIC ANTIGEN DIAGNOSTIC [SQPSA] Order #: [id number] FUTURE Prescriptions as of 05/25/2024 - lisinopril (ZESTRIL) 40 mg tablet Take 1 tablet by mouth every afternoon. - atorvastatin (LIPITOR) 20 mg tablet Take 1 tablet by mouth every afternoon. - amLODIPine (NORVASC) 10 mg tablet Take 1 tablet by mouth every afternoon. - ciprofloxacin HCl (CIPRO) 500 mg tablet Take 1 tablet by mouth every 12 hours. - albuterol HFA (PROAIR HFA) 90 mcg/actuation inhaler Inhale 2 Puffs as instructed every 6 hours as needed. - benzonatate (TESSALON PERLES) 100 mg capsule Take 2 capsules by mouth three times daily as needed. Problem List As Of Date: 05/24/2024 (None) Encounter Status:Closed by ERIKA MORALES on 05/25/24 [facility] Telephone (UROLWS) ---- DB PALOMARES ([id number]) 1960 M Date Time Provider Department 05/24/24 CARLOS NIELSEN During your visit today, we recorded the following information about you: Erika Morales LPN 05/24/2024 9:09 AM Signed Received medical records from [facility] Via Feedback. Scanned to [employer] Erika Morales LPN Allergies As of Date: 05/24/2024 (No Known Allergies) Date Reviewed: 05/23/2024 Reviewed by: Carlos Nielsen PA-C - Fully Assessed Prescriptions as of 05/24/2024 - lisinopril (ZESTRIL) 40 mg tablet Take 1 tablet by mouth every afternoon. - atorvastatin (LIPITOR) 20 mg tablet Take 1 tablet by mouth every afternoon. - amLODIPine (NORVASC) 10 mg tablet Take 1 tablet by mouth every afternoon. - ciprofloxacin HCl (CIPRO) 500 mg tablet Take 1 tablet by mouth every 12 hours. - albuterol HFA (PROAIR HFA) 90 mcg/actuation inhaler Inhale 2 Puffs as instructed every 6 hours as needed. - benzonatate (TESSALON PERLES) 100 mg capsule Take 2 capsules by mouth three times daily as needed. Problem List As Of Date: 05/24/2024 (None) Encounter Status:Closed by ERIKA MORALES on 05/24/24 Normal [facility] ISOPSA ASSAY FOR UROLOGY USE ONLYOrdered By: Garry Page on 05-24-2024 Interpretation View results in Scanned Documents link when available. [facility] IsoPSA 5.3 [facility] TPSA Results 6.490 [facility] CNOVon 05-23-2024 CNOV Office Visit (UROLWS) ---- DB PALOMARES ([id number]) 1960 M Date Time Provider Department 05/23/24 1:30 PM CARLOS NIELSEN UROLWS During your visit today, we recorded the following information about you: Temperature Pulse Respiration Blood pressure 98.2 degrees 66/minute 14/minute 130/70 Weight Height 56.2 kg 1.648 m Erika Morales LPN 06/26/2024 7:57 PM Signed Verified name and date of . CC Post Void Residual HPI: Db Palomares is a 64 year old male. The patient is here now for an appointment with ROMIE Burns MT, PA-COV. Procedure: Explained procedure to patient and verbalizes understanding. Performed a PVR. Patient urinated and instructed to empty bladder as much as possible just prior to having PVR done using bladder ultrasound scanner. Results of scan: 0 mL The patient tolerated the procedure well. Plan: Appointment with Carlos. Carlos Nielsen PA-C 05/23/2024 2:05 PM Signed > IsoPSA at lab If PSA > 4 and isoPSA is > 6.1% then prostate biopsy is recommended Carlos Nielsen PA-C 06/26/2024 7:57 PM Signed [facility] NEW PATIENT CLINIC NOTE SERVICE DATE: May 23, 2024 NAME: Db Palomares CHIEF COMPLAINT: Elevated PSA HISTORY OF PRESENT ILLNESS: Db Palomares is a 64 year old male new patient here for Elevated PSA The patient reports elevated PSA of 11.2 on report given by patient on 03/2024 Given such a increase of his PSA to 11.2 I have recommended an IsoPSA test be performed for biopsy indication He will have test done at lab today PSA - 1.28 07/16/2022 PSA - 11.20 04/04/2024 LUTS: No current LUTS LABS: PSA - 1.28 07/16/2022 PSA - 11.20 04/04/2024 MEDICATIONS: lisinopril (ZESTRIL) 40 mg tablet Take 1 tablet by mouth every afternoon. atorvastatin (LIPITOR) 20 mg tablet Take 1 tablet by mouth every afternoon. amLODIPine (NORVASC) 10 mg tablet Take 1 tablet by mouth every afternoon. ciprofloxacin HCl (CIPRO) 500 mg tablet Take 1 tablet by mouth every 12 hours. (Patient not taking: Reported on 05/23/2024) albuterol HFA (PROAIR HFA) 90 mcg/actuation inhaler Inhale 2 Puffs as instructed every 6 hours as needed. (Patient not taking: Reported on 05/18/2024) benzonatate (TESSALON PERLES) 100 mg capsule Take 2 capsules by mouth three times daily as needed. (Patient not taking: Reported on 05/18/2024) PAST MEDICAL HISTORY: PAST MEDICAL HISTORY Diagnosis Date Atypical nevus of back Elevated prostate specific antigen (PSA) HTN (hypertension) Tobacco use disorder PAST SURGICAL HISTORY: PAST SURGICAL HISTORY Procedure Laterality Date SKIN BX, 1 LESION 04/13/2024 TOOTH EXTRACTION All teeth removed FAMILY HISTORY: FAMILY HISTORY Problem Relation Age of Onset other (Stomach Cancer) Mother Brain Cancer Father Cancer Brother No Known Problems Maternal Grandmother No Known Problems Maternal Grandfather No Known Problems Paternal Grandmother No Known Problems Paternal Grandfather SOCIAL HISTORY: Social Connections: Not on file REVIEW OF SYSTEMS: GENERAL: No fever, chills, weight loss, or fatigue. ENMT: Negative CARDIOVASCULAR:NO CHEST PAIN, PALPITATIONS, ANKLE EDEMA RESPIRATORY: No chronic cough, wheezing, dyspnea, hemoptysis. GENITOURINARY: SEE HPI MUSCULOSKELETAL:NO CHRONIC BACK PAIN, ARTHRITIS, CHRONIC NECK PAIN SKIN: NO VARICOSE VEINS, RASH, ABNORMAL ITCHING HEME/LYMPH/IMMUNE:N egative for prolonged bleeding, bruising easily or swollen nodes NEUROLOGICAL: NO HEADACHES, NUMBNESS, SEIZURES, STROKE DIABETES: All other systems reviewed and are negative PHYSICAL EXAMINATION: Blood pressure 130/70, pulse 66, temperature 36.8 ?C (98.2 ?F), temperature source Temporal, resp. rate 14, height 164.8 cm (5' 4.88), weight 56.2 kg (124 lb), SpO2 97%. GENERAL: WNL nutrition, no deformities, healthy appearing NEURO: Awake, alert and oriented x 3 and Normal gait PSYCH: No signs of depression, anxiety, or agitation ENMT (Ear, Nose, Mouth, Throat): No masses, adenopathy, icterus. Thyroid nonpalpable RESP: NL effort, no retractions or purse-lip breathing. CV: No extremity swelling, varices, edema, pallor, erythema GASTROINTESTINAL: Soft, nontender, nondistended, no masses. HERNIAS: None SKIN: No rash, lesions No palpable lymphadenopathy MUSCULOSKELETAL: Extremities normal. No deformities, edema, clubbing or skin discoloration. GENITOURINARY: MALE EXAM: Exam NOT Indicated since he will be getting IsoPSA test drawn today PROBLEM LIST REVIEW: Yes LABS: Results for orders placed or performed in visit on 05/23/24 UA DIP, URINE (POC) Result Value Ref Range GLUCOSE UA (POCT) Negative Negative mg/dL BILIRUBIN UA (POCT) Negative Negative KETONE UA (POCT) Negative Negative mg/dL SPECIFIC GRAVITY UA (POCT) 1.015 1.005 - 1.030 HEMOGLOB (more content not included)... Normal [facility] ISOPSA ASSAY FOR UROLOGY USE ONLYon 05-23-2024 INTERPRETATION View results in Scanned Documents link when available. Normal [facility] Comment on above: Order Comment: Speci men Type: BLOOD SPECIMEN Ordering Facility: [facility] Address: [address] [place] [address] Performed By: #### I SOPSA #### [facility] CLIA [id number] [address] [place] [address], [place] [address] ISOPSA INDEX 5.3 Normal [facility] Comment on above: Order Comment: Speci men Type: BLOOD SPECIMEN Ordering Facility: [facility] Address: [address] [place] [address] Performed By: #### I SOPSA #### [facility] CLIA [id number] [address] [place] [address] TPSA RESULTS 6.490 Normal [facility] Comment on above: Order Comment: Speci men Type: BLOOD SPECIMEN Ordering Facility: [facility] Address: [address] [place] [address] Performed By: #### I SOPSA #### [facility] CLIA [id number] [address] [facility] [address] [place] [address], [place] [address] UA DIP, URINE (POC)on 2023 BILIRUBIN UA (POCT) Negative Negative [facility] CLARITY UA (POCT) Clear [facility] COLOR UA (POCT) Yellow [facility] GLUCOSE UA (POCT) Negative Negative mg/dL [facility] Hemoglobin Ql (U) Moderate Abnormal Negative [facility] Interpretation and review of laboratory results Abnormal [facility] KETONE UA (POCT) Negative Negative mg/dL [facility] LEUKOCYTES UA (POCT) Negative Negative [facility] NITRITE UA (POCT) Negative Negative [facility] PH UA (POCT) 5.5 4.5 - 8.0 [facility] Protein Ql (U) Negative Negative mg/dL [facility] SPECIFIC GRAVITY UA (POCT) 1.015 1.005 - 1.030 [facility] UROBILINOGEN UA (POCT) 0.2 Sarah l E.U./dL [facility] Location:[facility], [address], [place], [address] [facility] POINT OF CARE [facility] Surgery Specimen Level Waqas 04-11-2024 Surgery Specimen Level IV ----- Patient Age/Sex Location Account Attending Physician DB PALOMARES 64/M [facility] [id number] Dr. Everett Champion MD Specimen: [id number] Received: 04/11/24 Status: CLARENCE Leigh Num: [id number] Spec Type: Lesion Subm Dr: Dr. 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 See comment. 04/13/2024 COMMENT The tumor predominantly consists of basal cell carcinoma components with central area with squamous cell carcinoma component. Clinical correlation and appropriate follow up are necessary. This case has been reviewed in consultation with Dr. Yee who concurs with the above diagnosis. IDC:PW MICROSCOPIC DESCRIPTION Slides are reviewed. GROSS DESCRIPTION Received in fixative is one container labeled with the patient's name and designated Center back. The specimen consists of a shave biopsy of moffett-white skin measuring 1.6 x 1.0 x 0.2cm. The specimen is inked, serially sectioned and submitted entirely in one cassette. 04/12/2024 TC:0 CPT:63501 Patient Age/Sex Location Account Attending Physician DB PALOMARES 64/M [facility] [id number] Dr. Everett Champion MD Signed (signatur e on file) Dr. Gerardo Daniels MD 04/13/24 1334 Normal [facility] Comment on above: Performed By: #### L 501.9520, L500.4050, L100.0100, L501.9940, L101.9900 #### [facility] [address] [place], [address] CBC W/Diff, Automatedon 10-2 -2023 Absolute Lymph 3.01 X10 3/uL Normal 0.83-4.51 [facility] Comment on above: Order Comment: Order Date: 04/04/24 Order Info: 0184-1 - CBCD Order Info: 72539-3 - SED Performed By: #### L 501.9520, L500.4050, L100.0100, L501.9940, L101.9900 #### [facility] [address] [place], [address] Absolute Neut 10.6 X10 3/uL High 2.0-7.7 [facility] Comment on above: Order Comment: Order Date: 04/04/24 Order Info: 0184-1 - CBCD Order Info: 49613-0 - SED Performed By: #### L 501.9520, L500.4050, L100.0100, L501.9940, L101.9900 #### [facility] [address] [place], [address] Basophils/100 WBC (Bld) 0.6 % Normal 0-1 [facility] Comment on above: Order Comment: Order Date: 04/04/24 Order Info: 0184-1 - CBCD Order Info: 37388-3 - SED Performed By: #### L 501.9520, L500.4050, L100.0100, L501.9940, L101.9900 #### [facility] [address] [place], [address] Eosinophils/100 WBC (Bld) 1.9 % Normal 0-5 [facility] Comment on above: Order Comment: Order Date: 04/04/24 Order Info: 018- - CBCD Order Info: 01525-1 - SED Performed By: #### L 501.9520, L500.4050, L100.0100, L501.9940, L101.9900 #### [facility] [address] [place], [address] Erythrocyte distribution width (RBC) [Ratio] 12.6 % Normal 11.6-14.6 [facility] Comment on above: Order Comment: Order Date: 04/04/24 Order Info: 018- - CBCD Order Info: 59177-8 - SED Performed By: #### L 501.9520, L500.4050, L100.0100, L501.9940, L101.9900 #### [facility] [address] [place], [place], [phone] ([phone] Hematocrit (Bld) [Volume fraction] 48.0 % Normal 40-54 [facility] Comment on above: Order Comment: Order Date: 04/04/24 Order Info: 01809-12 - CBCD Order Info: 21683-6 - SED Performed By: #### L 501.9520, L500.4050, L100.0100, L501.9940, L101.9900 #### [facility] [address] [place], [address] Hemoglobin (Bld) [Mass/Vol] 15.5 g/dL Normal 13.0-16.5 [facility] Comment on above: Order Comment: Order Date: 04/04/24 Order Info: 018- - CBCD Order Info: 14148-8 - SED Performed By: #### L 501.9520, L500.4050, L100.0100, L501.9940, L101.9900 #### [facility] [address] [place], [place], [address] IG% 0.500 Normal 0.0-0.9 [facility] Comment on above: Order Comment: Order Date: 04/04/24 Order Info: 183-06 - CBCD Order Info: - SED Result Comment: IG% - Immature Granulocytes (promyelocytes, myelocytes and metamyelocytes) > 1% indicates that a LEFT SHIFT is Present. Performed By: #### L 501.9520, L500.4050, L100.0100, L501.9940, L101.9900 #### [facility] [address] [place], [address] Lymphocytes/100 WBC (Bld) 20.2 % Normal 19-41 [facility] Comment on above: Order Comment: Order Date: 04/04/24 Order Info: 183-06 - CBCD Order Info: - SED Performed By: #### L 501.9520, L500.4050, L100.0100, L501.9940, L101.9900 #### [facility] [address] [place], [address] MCH (RBC) [Entitic mass] 29.5 pg Normal 27.0-32.0 [facility] Comment on above: Order Comment: Order Date: 04/04/24 Order Info: 183-06 - CBCD Order Info: - SED Performed By: #### L 501.9520, L500.4050, L100.0100, L501.9940, L101.9900 #### [facility] [address] [place], [address] MCHC (RBC) [Mass/Vol] 32.3 g/dL Normal 32-36 [facility] Comment on above: Order Comment: Order Date: 04/04/24 Order Info: 183-06 - CBCD Order Info: - SED Performed By: #### L 501.9520, L500.4050, L100.0100, L501.9940, L101.9900 #### [facility] [address] [place], [address] MCV (RBC) [Entitic vol] 91.3 fL Normal 80-94 [facility] Comment on above: Order Comment: Order Date: 04/04/24 Order Info: 183-06 - CBCD Order Info: 77879-0 - SED Performed By: #### L 501.9520, L500.4050, L100.0100, L501.9940, L101.9900 #### [facility] [address] [place], [address] Monocytes/100 WBC (Bld) 5.8 % Normal 0-10 [facility] Comment on above: Order Comment: Order Date: 04/04/24 Order Info: 183-06 - CBCD Order Info: 52556-2 - SED Performed By: #### L 501.9520, L500.4050, L100.0100, L501.9940, L101.9900 #### [facility] [address] [place], [address] Neutrophils/100 WBC (Bld) 71.0 % High 47-70 [facility] Comment on above: Order Comment: Order Date: 04/04/24 Order Info: 183-06 - CBCD Order Info: 53304-0 - SED Performed By: #### L 501.9520, L500.4050, L100.0100, L501.9940, L101.9900 #### [facility] [address] [place], [address] Nucleated RBC (Bld) [#/Vol] 0 10*3/uL Normal 0-5 [facility] Comment on above: Order Comment: Order Date: 04/04/24 Order Info: 183-06 - CBCD Order Info: 54102-6 - SED Performed By: #### L 501.9520, L500.4050, L100.0100, L501.9940, L101.9900 #### [facility] [address] [place], [address] Platelet mean volume (Bld) [Entitic vol] 9.8 fL Normal 6.2-12.0 [facility] Comment on above: Order Comment: Order Date: 04/04/24 Order Info: 183-06 - CBCD Order Info: 48388-2 - SED Performed By: #### L 501.9520, L500.4050, L100.0100, L501.9940, L101.9900 #### [facility] [address] [place], [address] Platelets (Bld) [#/Vol] 379 10*3/uL Normal 150-450 [facility] Comment on above: Order Comment: Order Date: 04/04/24 Order Info: 183-06 - CBCD Order Info: 46667-3 - SED Performed By: #### L 501.9520, L500.4050, L100.0100, L501.9940, L101.9900 #### [facility] [address] [place], [address] RBC (Bld) [#/Vol] 5.26 10*6/uL Normal 4.6-6.2 [facility] Comment on above: Order Comment: Order Date: 04/04/24 Order Info: 01809-12 - CBCD Order Info: 52853-1 - SED Performed By: #### L 501.9520, L500.4050, L100.0100, L501.9940, L101.9900 #### [facility] [address] [place], [address] RDW SD 42.4 fl Normal 35.1-43.9 [facility] Comment on above: Order Comment: Order Date: 04/04/24 Order Info: 01809-12 - CBCD Order Info: 31770-1 - SED Performed By: #### L 501.9520, L500.4050, L100.0100, L501.9940, L101.9900 #### [facility] [address] [place], [address] WBC (Bld) [#/Vol] 14.9 10*3/uL High 4.4-11.0 [facility] Comment on above: Order Comment: Order Date: 04/04/24 Order Info: 0184-1 - CBCD Order Info: 41811-2 - SED Performed By: #### L 501.9520, L500.4050, L100.0100, L501.9940, L101.9900 #### [facility] [address] [place], [address] Comprehensive Metabolic Prof ilon 04-04-2024 Albumin [Mass/Vol] 3.9 g/dL Normal 3.2-5.0 [facility] Comment on above: Order Comment: Order Date: 07/13/23 Order Info: 0667-1 - BMP Order Date: 04/04/24 Order Info: 0786-1 - CMP Order Info: 62822-6 - LIPID Order Info: 3 - TSH Order Info: 2857-1 - PSA Order Info: 0783-1 - PSAD Performed By: #### L 501.9520, L500.4050, L100.0100, L501.9940, L101.9900 #### [facility] [address] [place], [address] Albumin/Globulin [Mass ratio] 1.2 {ratio} Normal 0.9-2.4 [facility] Comment on above: Order Comment: Order Date: 07/13/23 Order Info: 0667-1 - BMP Order Date: 04/04/24 Order Info: 0786-1 - CMP Order Info: 94329-3 - LIPID Order Info: 6-3 - TSH Order Info: 2857-1 - PSA Order Info: 0783-1 - PSAD Performed By: #### L 501.9520, L500.4050, L100.0100, L501.9940, L101.9900 #### [facility] [address] [place], [address] ALK P 81 U/L Normal 45-117 [facility] Comment on above: Order Comment: Order Date: 07/13/23 Order Info: 666- - BMP Order Date: 04/04/24 Order Info: 86-1 - CMP Order Info: 14817-3 - LIPID Order Info: 3015-3 - TSH Order Info: 28571 - PSA Order Info: 782-1 - PSAD Performed By: #### L 501.9520, L500.4050, L100.0100, L501.9940, L101.9900 #### [facility] [address] [place], [address] ALT [Catalytic activity/Vol] 35 U/L Normal 16-61 [facility] Comment on above: Order Comment: Order Date: 07/13/23 Order Info: 666-06 - BMP Order Date: 04/04/24 Order Info: 785-1 - CMP Order Info: 81430-7 - LIPID Order Info: 3015-08 - TSH Order Info: 2856-06 - PSA Order Info: 782- - PSAD Performed By: #### L 501.9520, L500.4050, L100.0100, L501.9940, L101.9900 #### [facility] [address] [place], [address] AST [Catalytic activity/Vol] 14 U/L Low 15-37 [facility] Comment on above: Order Comment: Order Date: 07/13/23 Order Info: 666-06 - BMP Order Date: 04/04/24 Order Info: 785-1 - CMP Order Info: 34179-1 - LIPID Order Info: 3 - TSH Order Info: 28571 - PSA Order Info: 0783-1 - PSAD Performed By: #### L 501.9520, L500.4050, L100.0100, L501.9940, L101.9900 #### [facility] [address] [place], [address] Bilirubin [Mass/Vol] 0.70 mg/dL Normal 0.20-1.00 [facility] Comment on above: Order Comment: Order Date: 07/13/23 Order Info: 666-1 - BMP Order Date: 04/04/24 Order Info: 785-1 - CMP Order Info: 93003-5 - LIPID Order Info: 3015-3 - TSH Order Info: 2857 - PSA Order Info: 83-1 - PSAD Result Comment: For patients on eltrombopag therapy, use of Dimension [place] TBIL is not recommended. Performed By: #### L 501.9520, L500.4050, L100.0100, L501.9940, L101.9900 #### [facility] [address] [place], [place], [phone] (482) BUN/CRE 21.3 RATIO High 10-20 [facility] Comment on above: Order Comment: Order Date: 07/13/23 Order Info: 666-06 - BMP Order Date: 04/04/24 Order Info: 785-06 - CMP Order Info: - LIPID Order Info: 3 - TSH Order Info: 2856-06 - PSA Order Info: 782-06 - PSAD Performed By: #### L 501.9520, L500.4050, L100.0100, L501.9940, L101.9900 #### [facility] [address] [place], [place], [phone] (614) CA,Total 9.2 mg/dL Normal 8.5-10.1 [facility] Comment on above: Order Comment: Order Date: 07/13/23 Order Info: 666-06 - BMP Order Date: 04/04/24 Order Info: 785-1 - CMP Order Info: 93880-5 - LIPID Order Info: 3 - TSH Order Info: 28571 - PSA Order Info: 83-1 - PSAD Performed By: #### L 501.9520, L500.4050, L100.0100, L501.9940, L101.9900 #### [facility] [address] [place], [place], [id number] Chloride [Moles/Vol] 108 mmol/L High 98-107 [facility] Comment on above: Order Comment: Order Date: 07/13/23 Order Info: 666- - BMP Order Date: 04/04/24 Order Info: 785-1 - CMP Order Info: 24224-1 - LIPID Order Info: 3 - TSH Order Info: 2856-06 - PSA Order Info: 782-06 - PSAD Performed By: #### L 501.9520, L500.4050, L100.0100, L501.9940, L101.9900 #### [facility] [address] [place], [place], [id number] CO2 [Moles/Vol] 23.0 mmol/L Normal 21.0-32.0 [facility] Comment on above: Order Comment: Order Date: 07/13/23 Order Info: 666-06 - BMP Order Date: 04/04/24 Order Info: 785-1 - CMP Order Info: 79522-3 - LIPID Order Info: 3 - TSH Order Info: 2856-06 - PSA Order Info: 782-06 - PSAD Performed By: #### L 501.9520, L500.4050, L100.0100, L501.9940, L101.9900 #### [facility] [address] [place], [place], [address] Creatinine [Mass/Vol] 1.08 mg/dL Normal 0.70-1.30 [facility] Comment on above: Order Comment: Order Date: 07/13/23 Order Info: 666-06 - BMP Order Date: 04/04/24 Order Info: 785- - CMP Order Info: 26754-8 - LIPID Order Info: 3 - TSH Order Info: 2856-06 - PSA Order Info: 83 - PSAD Result Comment: The validity of the calculated GFR GFRAA in patients over 70 years has not been determined. Clinical correlation is essential. Performed By: #### L 501.9520, L500.4050, L100.0100, L501.9940, L101.9900 #### [facility] [address] [place], [address] EST GFR - AA 89 mL/min Normal >60 [facility] Comment on above: Order Comment: Order Date: 07/13/23 Order Info: 666-06 - BMP Order Date: 04/04/24 Order Info: 785-1 - CMP Order Info: 37751-3 - LIPID Order Info: 3015-08 - TSH Order Info: 28512-12 - PSA Order Info: 83 - PSAD Result Comment: Afri can Nigerien GFR Calc Performed By: #### L 501.9520, L500.4050, L100.0100, L501.9940, L101.9900 #### [facility] [address] [place], [address] GAP 7 Normal 5-15 [facility] Comment on above: Order Comment: Order Date: 07/13/23 Order Info: 666-06 - BMP Order Date: 04/04/24 Order Info: 785-06 - CMP Order Info: - LIPID Order Info: 3015-08 - TSH Order Info: 2856-06 - PSA Order Info: 782-06 - PSAD Performed By: #### L 501.9520, L500.4050, L100.0100, L501.9940, L101.9900 #### [facility] [address] [place], [place], [address] [phone] GFR/1.73 sq M.predicted among non-blacks MDRD (S/P/Bld) [Vol rate/Area] 73 mL/min/{1.73_m2} Normal >60 [facility] Comment on above: Order Comment: Order Date: 07/13/23 Order Info: 666-06 - BMP Order Date: 04/04/24 Order Info: 785-1 - CMP Order Info: 27348-8 - LIPID Order Info: 3 - TSH Order Info: 28512-12 - PSA Order Info: 83- - PSAD Result Comment: Non- GFR Calc Performed By: #### L 501.9520, L500.4050, L100.0100, L501.9940, L101.9900 #### [facility] [address] [place], [address] Globulin (S) [Mass/Vol] 3.3 g/dL Normal 2.2-4.2 [facility] Comment on above: Order Comment: Order Date: 07/13/23 Order Info: 666- - BMP Order Date: 04/04/24 Order Info: 785-06 - CMP Order Info: 29536-9 - LIPID Order Info: 3 - TSH Order Info: 2856-06 - PSA Order Info: 782-06 - PSAD Performed By: #### L 501.9520, L500.4050, L100.0100, L501.9940, L101.9900 #### [facility] [address] [place], [address] Glucose [Mass/Vol] 100 mg/dL Normal 74-106 [facility] Comment on above: Order Comment: Order Date: 07/13/23 Order Info: 666-06 - BMP Order Date: 04/04/24 Order Info: 785-06 - CMP Order Info: 83939-7 - LIPID Order Info: 3 - TSH Order Info: 2856-06 - PSA Order Info: 782-06 - PSAD Result Comment: Fast ing Glucose result from 100 to 125 mg/dL suggests IMPAIRED HOMEOSTASIS per A.D.A. criteria. Performed By: #### L 501.9520, L500.4050, L100.0100, L501.9940, L101.9900 #### [facility] [address] [place], [address] Potassium [Moles/Vol] 4.6 mmol/L Normal 3.5-5.1 [facility] Comment on above: Order Comment: Order Date: 07/13/23 Order Info: 06- - BMP Order Date: 04/04/24 Order Info: 0786-1 - CMP Order Info: 50351-1 - LIPID Order Info: 3015-08 - TSH Order Info: 2856-06 - PSA Order Info: 782-06 - PSAD Performed By: #### L 501.9520, L500.4050, L100.0100, L501.9940, L101.9900 #### [facility] [address] [place], [address] Sodium [Moles/Vol] 138 mmol/L Normal 136-145 [facility] Comment on above: Order Comment: Order Date: 07/13/23 Order Info: 666-06 - BMP Order Date: 04/04/24 Order Info: 785- - CMP Order Info: - LIPID Order Info: 3015-08 - TSH Order Info: 2856-06 - PSA Order Info: 782-06 - PSAD Performed By: #### L 501.9520, L500.4050, L100.0100, L501.9940, L101.9900 #### [facility] [address] [place], [address] T PROT 7.2 g/dL Normal 6.4-8.2 [facility] Comment on above: Order Comment: Order Date: 07/13/23 Order Info: 666-06 - BMP Order Date: 04/04/24 Order Info: 1 - CMP Order Info: - LIPID Order Info: 3015-08 - TSH Order Info: 2856-06 - PSA Order Info: 782-06 - PSAD Performed By: #### L 501.9520, L500.4050, L100.0100, L501.9940, L101.9900 #### [facility] [address] [place], [address] Urea nitrogen [Mass/Vol] 23 mg/dL High 7-18 [facility] Comment on above: Order Comment: Order Date: 07/13/23 Order Info: 666-06 - BMP Order Date: 04/04/24 Order Info: 86-1 - CMP Order Info: 84381-6 - LIPID Order Info: 3016-3 - TSH Order Info: 2857-1 - PSA Order Info: 0783-1 - PSAD Performed By: #### L 501.9520, L500.4050, L100.0100, L501.9940, L101.9900 #### [facility] [address] [place], [place], [address] Erythrocyte Sed Rateon 04-04 SED RATE 11 mm/hr Normal 0-20 [facility] Comment on above: Order Comment: Order Date: 04/04/24 Order Info: 018- - CBCD Order Info: 78571-5 - SED Performed By: #### L 501.9520, L500.4050, L100.0100, L501.9940, L101.9900 #### [facility] [address] [place], [place], [address] Lipid Profileon 04-04-2024 Cholesterol [Mass/Vol] 135 mg/dL Normal 200 [facility] Comment on above: Order Comment: Order Date: 04/04/24 Order Info: 183-06 - CBCD Order Info: 87714-2 - SED Result Comment: <200 mg/dL Desirable 200-240 mg/dL Borderline >240 mg/dL High Risk Performed By: #### L 501.9520, L500.4050, L100.0100, L501.9940, L101.9900 #### [facility] [address] [place], [address] Cholesterol in HDL [Mass/Vol] 38 mg/dL Low [facility] Comment on above: Order Comment: Order Date: 04/04/24 Order Info: 01809-12 - CBCD Order Info: 82094-0 - SED Result Comment: The drugs N-Acetylcysteine and Metamizole may falsely depress this assay. Reference Range HDL <40 mg/dL Low HDL Cholesterol HDL >or= 60 mg/dL High HDL Cholesterol Performed By: #### L 501.9520, L500.4050, L100.0100, L501.9940, L101.9900 #### [facility] [address] [place], [address] Cholesterol in LDL [Mass/Vol] 74 mg/dL Normal 0-130 [facility] Comment on above: Order Comment: Order Date: 04/04/24 Order Info: 183-06 - CBCD Order Info: 67518-4 - SED Performed By: #### L 501.9520, L500.4050, L100.0100, L501.9940, L101.9900 #### [facility] [address] [place], [address] Cholesterol in VLDL [Mass/Vol] 23 mg/dL Normal 5-40 [facility] Comment on above: Order Comment: Order Date: 04/04/24 Order Info: 183-06 - CBCD Order Info: 80151-1 - SED Performed By: #### L 501.9520, L500.4050, L100.0100, L501.9940, L101.9900 #### [facility] [address] [place], [address] Triglyceride [Mass/Vol] 114 mg/dL Normal [facility] Comment on above: Order Comment: Order Date: 04/04/24 Order Info: 183-06 - CBCD Order Info: 73575-1 - SED Result Comment: The drugs N-Acetylcysteine and Metamizole may falsely depress this assay. Serum Triglycerides Reference Interval Normal <150 mg/dL Borderline high 150 - 199 mg/dL High 200 - 499 mg/dL Very High > or = 500 mg/dL Performed By: #### L 501.9520, L500.4050, L100.0100, L501.9940, L101.9900 #### [facility] [address] [place], [address] PSA,Total- Diagnosticon 10-2 PSA, DIAGNOSTIC 11.20 ng/mL High 0.0-4.0 [facility] Comment on above: Order Comment: Order Date: 07/13/23 Order Info: 0667-1 - BMP Order Date: 04/04/24 Order Info: 0786-1 - CMP Order Info: 19820-4 - LIPID Order Info: 3015-3 - TSH Order Info: 2856-06 - PSA Order Info: 782-06 - PSAD Result Comment: This test was performed using the TPSA assay method for the [employer] chemistry system. Values obtained with different assay methods cannot be used interchangably. When changing PSA assays in the course of monitoring a patient, additional sequential testing should be carried out to confirm baseline values. Performed By: #### L 501.9520, L500.4050, L100.0100, L501.9940, L101.9900 #### [facility] [address] [place], [address] Thyroid Stim Hormone (TSH)on 04-04-2024 TSH 1.870 uIU/mL Normal 0.358-3.740 [facility] Comment on above: Order Comment: Order Date: 07/13/23 Order Info: 0667-1 - BMP Order Date: 04/04/24 Order Info: 0786-1 - CMP Order Info: 09358-4 - LIPID Order Info: 3 - TSH Order Info: 2856-06 - PSA Order Info: 782-06 - PSAD Performed By: #### L 501.9520, L500.4050, L100.0100, L501.9940, L101.9900 #### [facility] [address] [facility] [place], [address] Vital Signs Date Time Vital Sign Value Performing Clinician Faci lity 08-24-2024 11:18-0400 Body temperature 98.7 [degF] Dr. Everett Champion MD Work Phone: [facility] 08-24-2024 11:18-0400 Diastolic blood pressure 65 mm[Hg] Dr. Everett Champion MD Work Phone: [facility] 08-24-2024 11:18-0400 Heart rate 69 /min Dr. Everett Champion MD Work Phone: [facility] 08-24-2024 11:18-0400 Respiratory rate 16 /min Dr. Everett Champion MD Work Phone: [phone] [place] [address] 08-24-2024 11:18-0400 SaO2% (BldA) [Mass fraction] 92 % Dr. Everett Champion MD Work Phone: [phone])[phone] [place] [address] 08-24-2024 11:18-0400 Systolic blood pressure 152 mm[Hg] Dr. Everett Champion MD Work Phone: [phone])[phone] [place] [address] 08-24-2024 09:00-0400 Inhaled oxygen flow rate 2 L/min Dr. Everett Champion MD Work Phone: [phone])704-652232 [place] [address] 08-24-2024 07:31-0400 Body height 170.[address] Everett Champion MD Work Phone: 5(715)735-279432 [place] [address] 08-24-2024 07:31-0400 Body mass index (BMI) [Ratio] 19.9 kg/m2 Dr. Everett Champion MD Work Phone: [phone])291-490532 [place] [address] 08-24-2024 07:31-0400 Body weight 57.[address] Everett Champion MD Work Phone: [phone])[phone] [place] [address] 08-14-2024 08:48-0500 Body mass index (BMI) [Ratio] 19.7 kg/m2 Dr. Everett Champion MD Work Phone: [phone])[phone] [place] [address] 08-14-2024 08:48-0500 Body temperature 97.1 [degF] Dr. Everett Champion MD Work Phone: [phone])[phone] [address] [place], [place] [address] 08-14-2024 08:48-0500 Body weight 57.[address] Everett Champion MD Work Phone: [phone] [place] [address] 08-14-2024 08:48-0500 Diastolic blood pressure 90 mm[Hg] Dr. Everett Champion MD Work Phone: [phone] [place] [address] 08-14-2024 08:48-0500 Heart rate 71 /min Dr. Everett Champion MD Work Phone: [facility] 08-14-2024 08:48-0500 Respiratory rate 18 /min Dr. Everett Champion MD Work Phone: [facility] 08-14-2024 08:48-0500 SaO2% (BldA) [Mass fraction] 97 % Dr. Everett Champion MD Work Phone: [facility] 08-14-2024 08:48-0500 Systolic blood pressure 169 mm[Hg] Dr. Everett Champion MD Work Phone: [facility] 05-23-2024 13:15-0500 Body height 164.8 cm Carlos Nielsen PA-C Work Phone: [facility] 05-23-2024 13:15-0500 Body mass index (BMI) [Ratio] 20.71 kg/m2 Carlos Nielsen PA-C Work Phone: [facility] 05-23-2024 13:15-0500 Body temperature 98.2 [degF] Carlos Nielsen PA-C Work Phone: [facility] 05-23-2024 13:15-0500 Body weight 56.25 kg Carlos Nielsen PA-C Work Phone: [facility] 05-23-2024 13:15-0500 Diastolic blood pressure 70 mm[Hg] Carlos Nielsen PA-C Work Phone: [facility] 05-23-2024 13:15-0500 Heart rate 66 /min Carlos Nielsen PA-C Work Phone: [facility] 05-23-2024 13:15-0500 Respiratory rate 14 /min Carlos Nielsen PA-C Work Phone: [facility] 05-23-2024 13:15-0500 SaO2% (BldA) [Mass fraction] 97 % Carlos Nielsen PA-C Work Phone: [facility] 05-23-2024 13:15-0500 Systolic blood pressure 130 mm[Hg] Carlos Nielsen PA-C Work Phone: [facility] Encounters Encounter Date Encounter Type Care Provider Facility Start: 02-27-2025 ambulatory Everett Ricoi lity:[facility] Start: 09-05-2024 Encounter for other preprocedural examination Fortino Zhu [facility] Start: 08-24-2024 Non-patient / Non-visit Dr. Nenita Zhu MD -[facility] Start: 08-24-2024 End: 08-24-2024 Admission to same day surgery center Dr. Fortino Zhu MD [facility] Start: 08-24-2024 End: 08-24-[address] Everett Champion MD Work Phone: [facility] Work Phone: Start: 08-18-2024 End: 08-18-[address] Everett Champion MD Work Phone: [facility] Work Phone: Start: 08-18-2024 End: 08-18-[address] Everett Champion MD -[facility] Work Phone: Start: 08-18-2024 End: 08-18-2024 ambulatory Everett Champion Facility:[facility] Start: 08-15-2024 End: 08-15-2024 ambulatory Everett Champion Facility:[facility] Start: 08-15-2024 End: 08-15-2024 Non-patient / Non-visit Dr. Nicolas Hayes MD -[facility] Work Phone: Start: 08-14-2024 End: 08-14-[address] Fortino Zhu MD -[facility] Work Phone: Start: 08-14-2024 End: 08-14-2024 ambulatory Everett Champion Facility:[facility] Start: 05-24-2024 End: 05-25-2024 Telephone encounter Carlos Nielsen PA-C Work Phone: Urology Comment on above: Results; Orders Start: 05-23-2024 End: 05-23-2024 ambulatory CARLOS NIELSEN Facility:[facility] Start: 05-23-2024 End: 05-23-2024 Patient encounter procedure Carlos Nielsen PA-C Work Phone: Urology Comment on above: Elevated prostate sp ecific antigen (PSA) (Primary Dx); Screening for genitourinary condition Start: 05-18-2024 End: 05-18-2024 Chart abstracting Carlos Nielsen PA-C Work Phone: Urology Start: 04-11-2024 End: 04-11-2024 [facility]ulatory [facility] Facility:[facility] Start: 04-06-2024 ambulatory [facility] Faci lity:[facility] Start: 04-04-2024 End: 04-04-2024 ambulatory [facility] Facility:[facility] Start: 08-17-2023 End: 08-17-2023 ambulatory [facility] Work Phone: Start: 08-17-2023 End: 08-17-2023 Patient encounter procedure [facility], [facility] Work Phone: Start: 10-28-2017 End: 10-28-2017 Ambulatory UJDY Ortiz [facility] Start: 10-26-2017 Ambulatory JUDY Ortiz [facility] Start: 07-28-2017 Ambulatory JAMES [facility] Start: 07-28-2017 End: 07-28-2017 Ambulatory JAMES [facility] Procedures Date Procedure Procedure Detail Performing Clinician Start: 08-24-2024 Lap Robotic Inguinal Hernia (Right) Dr. Everett Champion MD Work Phone: Start: 08-18-[address] Harjit Champion MD Work Phone: Start: 05-23-2024 Urnls dip stick/tabl et rgnt auto w/o microscopy Carlos Nielsen PA-C Work Phone: Start: 08-17-2023 CT of chest Plan of Treatment Date Care Activity Detail Author Start: 02-28-2035 RSV Vaccine (1 - 1-dose 75+ series) RSV Vaccine (1 - 1-dose 75+ series) [facility] Start: 05-24-2025 End: 08-23-2025 Prostate specific Ag [Mass/volume] in Serum or Plasma PROSTATE-SPECIFIC ANTIGEN DIAGNOSTIC Lab Routine Elevated prostate specific antigen (PSA) Expected: 05/24/2025 (Approximate), Expires: 08/23/2025 [facility] Work Phone: Comment on above: Expected: 05/24/2025 (Approximate), Expi res: 08/23/2025 Start: 08-24-2024 Patient discharge [facility] Start: 05-23-2024 End: 05-23-2024 Patient encounter procedure 05/23/2024 1:30 PM EST Office Visit Urology [address] [place] [address] Carlos Nielsen PA-C [address] [place] [address] Elevated PSA [R97.20] Urology Comment on above: Elevated PSA [R97.20] Start: 02-13-2024 Covid-19 Vaccine ( season) Covid-19 Vaccine ( season) [facility] Start: 02-13-2024 Covid-19 Vaccine ( season) Covid-19 Vaccine ( season) [facility] Start: 02-13-2024 Influenza vaccination Influenza Vaccine (#1) [facility] Start: 02-28-2015 Prostate specific antigen measurement Prostate Cancer Screening Discussion [facility] Start: 02-28-2010 Shingrix Vaccine (1 of 2) Shingrix Vaccine (1 of 2) [facility] Start: 02-28-2005 Diabetes Screening Diabetes Screening [facility] Start: 02-28-2005 Screening for malignant neoplasm of colon [facility] Start: 02-28-1995 Lipid panel Lipid Screening [facility] Start: 02-28-1979 Pneumococcal Vaccine: 50+ (1 of 2 - PCV) Pneumococcal Vaccine: 50+ (1 of 2 - PCV) [facility] Start: 02-28-1979 Urine microalbumin profile DTaP,Tdap,Td Vaccine (1 - Tdap) [facility] Start: 02-28-1978 Anxiety Screening Anxiety Screening [facility] Start: 02-28-1978 Depression Screening Depression Screening [facility] Start: 02-28-1978 Hepatitis C screening Hepatitis C Screening [facility] Start: 02-28-1978 HIV screening HIV Screening [facility] Start: 02-28-1966 Pneumococcal vaccination Pneumococcal Vaccine (1 of 2 - PCV) [facility] Electrocardiographic procedure [facility] Patient referral [facility] Work Phone: 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 Work Phone: Comment on above: Ordered: 05/23/2024 Immunizations Immunization Date Immunization Notes Care Provider Fa toi 03-14-2015 influenza virus vacc ine, unspecified formulation Carlos Nielsen PA-C Work Phone: [facility] Payers Date Payer Category Payer Self-pay [id number] 2023 Medicaid [employer] [facility] [id number] 2023-Present [phone] [address] [place] [address] Medicaid [id number] 2023 Unknown [id number] Medicaid [id number] Unknown [id number] Unknown [id number] Unknown [id number] Unknown [id number] Unknown [id number] Unknown [id number] Unknown [id number] Unknown [id number] Unknown [id number] Social History Date Type Detail Facility Start: 05-02-2021 Tobacco smoking stat us [facility] Unknown if ever smoked [facility] Start: 1960 Sex Assigned At Male [facility] Start: 03-07-2020 End: 08-14-2024 Tobacco smoking status NMIS Smokes tobacco daily [facility] Start: 03-07-2020 End: 05-23-2024 Tobacco use and exposure Smokeless tobacco non-user [facility] Start: 05-18-2024 Alcoholic beverage intake Current drinker of alcohol (finding) [facility] Start: 05-18-2024 End: 05-23-2024 History of Social function [facility] Start: 05-18-2024 End: 05-23-2024 Tobacco use panel [facility] National Score (1-100), lower number is lower risk Not on file [facility] Start: 05-18-2024 Alcohol Comment [facility] Start: 1960 Sex assigned at Not on file [facility] History of tobacco use Cigarette Smoker [facility] Start: 05-23-2024 Alcoholic beverage intake Ex-drinker (finding) [facility] Start: 08-24-2024 End: 08-31-2024 Sex Male (finding) [facility] Medical Equipment Procedure Code Equipment Code Equipment Origin al Text Equipment Identifier Dates Extra-gynaecolog ical surgical mesh, composite-polymer [id number] FDA Start: 08-24-2024 Goals Date Patient Goal Desired Activity /State Mental Status Date Assessment Result Facility 08-24-2024 Cognitive function Voice/Name [facility] Work Phone: Clinical Notes 05-23-2024 to 08-24-2024 Note Date & Type Note Facility 08-24-2024 Consult note [facility] 08-24-2024 History and physical note [facility] 08-24-2024 Consult note Note Date/Time August 24, 2024 9:27am [facility] Medical Records Department [address] [place] [address] Anesthesia Postop Eval II 08/24/24923 MR#: [id number] Acct: [id number] Name: DB PALOMARES Rep #:[id number] : 1960 64 From: Moses Weeks MD PCP: Dr. Everett Champion MD Status :REG [facility] Y Race: C Location: [place] [address] Anesthesia Postop Eval I Sum Postop Eval Completion status Anesthesia document: Postop Eval 1 completed: Yes Anesthesia Postop Eval I Summary Anesthesia Postop Eval I Summary: Anesthesia Postop Eval I: Assessment Summary Airway patent Yes 08/24/24 09:00 PNEUMATIC TUBE REPAIRER.JCLI Spontaneous unlabored Yes 08/24/24 09:00 PNEUMATIC TUBE REPAIRER.JCLI respirations Mental status Awake,Calm 08/24/24 09:00 PNEUMATIC TUBE REPAIRER.JCLI nausea No 08/24/24 09:00 PNEUMATIC TUBE REPAIRER.JCLI Vomiting No 08/24/24 09:00 PNEUMATIC TUBE REPAIRER.JCLI Anesthesia Postop Eval I: Fluid Summary Crystalloid volume administer 800 08/24/24 09:00 PNEUMATIC TUBE REPAIRER.JCLI (ml) Colloids volume administered ( ml) Blood Product volume administered (ml) Total IV fluid infused 800 08/24/24 09:00 PNEUMATIC TUBE REPAIRER.JCLI Anesthesia Postop Eval I: Summary Notes Anesthesia Complication No 08/24/24 09:00 PNEUMATIC TUBE REPAIRER.JCLI Anesthesia Complication Comment: Post-operative progress note Anesthesia: Postop Eval II Evaluation Mental status: Awake Pain Level: 6 (Receiving dilaudid.) nausea: No Vomiting: No Complications Anesthesia Complication: Yes Anesthesia Complication Comment:: 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 I personally spoke to the patient in PACU regarding this finding, and advised the patient that he will need to follow up with ENT as soon as possible for further management and workup. The patient understood and verbalized understanding. The need for follow/up with ENT was [facility] to the [facility] The polyps are three in number, and are at at the anterior, left side of the vocal cords. At this time, no vocal cord compression or tracheal compression was noted due to the mass. I advised the patient that the polyps could be secondary to a benign process or could be a more inflammatory process such as a cancerous process. The patient understands and has stated he will follow up with ENT upon discharge. 08/24/24926 <Electronically signed by Moses Weeks MD> Date _ Moses Weeks MD Cosigner Signature: Date CC: ~ Signed [facility] Work Phone: 1(843) 654-441003-13-2025 Consult note Author Anthony Correa [facility] Note Date/Time August 24, 2024 11: 25am [facility] Medical Records Department [address] [place] [address] Anesthesia Postop Eval I 08/24/24 09 MR#: [id number] Acct: [id number] Name: DB PALOMARES Rep #:[id number] : 1960 64 From: Anthony Latham PCP: Dr. Everett Champion MD Status :REG [facility] Y Race: C Location: [place] [address] Anesthesia: Postop Eval I Current Vital Signs Temperature: 96.8 F Pulse Rate: 80 Blood Pressure: 150/80 Respiratory Rate: 18 Pulse Ox: 98 Oxygen Delivery Method: Nasal Cannula Oxygen Flow Rate (L/min): 2 Assessment Airway patent: Yes Spontaneous unlabored respirations: Yes Mental status: Awake and Calm nausea: No Vomiting: No Anesthesia Complication: No Fluid Hydration Crystalloid volume administer (ml): 800 Total IV fluid infused: 800 Progress Note Anesthesia document: Postop Eval 1 completed: Yes 08/24/24 0900 <Electronically signed by Anthony Click C RNA> Date _ Anthony Click PNEUMATIC TUBE REPAIRER Cosigner Signature: Date CC: ~ Signed [facility] Work Phone: 1(710) 565-902503-13-2025 Consult note Author Moses Weeks [facility] Note Date/Time August 24, 2024 7:5 7am [facility] Medical Records Department [address] [place] [address] Pre-Anesthesia Evaluation 08/24/24 0755 MR#: [id number] Acct: [id number] Name: DB PALOMARES Rep #:[id number] : 1960 64 From: Moses Weeks MD PCP: Dr. Everett Champion MD Status :REG [facility] Y Race: C Location: [place] [address] ASA Classification* ASA Classification ASA Classification: 2 (Patient is a heavy smoker, HTN, marijuana use, BPH, HLD. Recommend some precedex towards end of procedure if BPs tolerate. ) Assessment & Plan Anesthesia* Anesthesia Assessment Anesthesia Assessment: Discussed sedation and/or anesthesia options, risks, benefits, and alternatives with patient/parents/legal guardian/POA. Questions invited. The patient/parents/legal guardian/POA seems to understand and agrees to proceedwith anesthesia plan. Reviewed the physical assessment, medical history, allergy history and patient home medications list prior to surgery/procedure/anesthetic and documented any changes. Performed airway and anesthesia risk assessments. Anesthesia Type Anesthesia Type: General History Source History Obtained from:: Patient and Chart Anesthesia Focused Assessment* Temperature: 97.9 F Pulse Rate: 62 Blood Pressure: 159/86 Respiratory Rate: 18 Pulse Ox: 98 Oxygen Delivery Method: Room Air Airway Assessment Mouth opens: >3 cm Mallampati Score: II Teeth Condition: Missing Neck Range of motion (ROM): Full ROM Focused Labs Anesthesia Preop lab: CBC WBC 10.6 K/mm3 (4.4-11.0) 08/15/24 10:51 08/15/24 RBC 5.48 M/mm3 (4.6-6.2) 08/15/24 10:51 08/15/24 Hgb 16.3 g/dL (13.0-16.5) 08/15/24 10:51 08/15/24 Hct 48.3 % (40-54) 08/15/24 10:51 08/15/24 Plt Count 223 K/mm3 (150-450) 08/15/24 10:51 08/15/24 CHEMISTRY Potassium 4.6 mmol/L (3.5-5.1) 04/04/24 10:29 04/04/24 Sodium 138 mmol/L (136-145) 04/04/24 10:04/04/24 BUN 23 mg/dL (7-18) H 04/04/24 10:04/04/24 Creatinine 1.08 mg/dL (0.70-1.30) 04/04/24 10:04/04/24 Glucose 100 mg/dL (74-106) 04/04/24 10:04/04/24 TSH 1.870 uIU/mL (0.358-3.740) 04/04/24 10:03/15 COAG PT 13.0 SECONDS (11.7-14.9) 08/15/24 10:51 Pre-Assessment Diagnosis/Proposed Procedure Planned Operative Procedure(s): (R) Lap Robotic Inguinal Hernia w/mesh Anesthesia History 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 When Was Last Pacemaker Check QUESTION #4 FULL TEXT: You/Your Family Experience fever (hyperthermia) with Anesthesia Last Oral Intake Last Oral intake: Last Oral Intake NPO since 06:00 08/24/24 07:31 Meds taken in AM with sips of No 08/24/24 07:31 water? Meds patient instructed to take am of surgery PONV PONV - medical office manager: PONV - medical office manager Female No 08/14/24 08:03 HX of Motion Sickness No 08/14/24 08:03 HX of N/V After Surgery No 08/14/24 08:03 Non-Smoker No 08/14/24 08:03 Duration of Surgery greater Yes 08/14/24 08:03 than 60 minutes Number of Risk Factors 1 08/14/24 08:03 PONV Score Low Risk 08/14/24 08:03 Height & Weight Height & Weight: Anesthesia: Height & Weight Height 5 ft 7 in 08/24/24 07:31 Weight: 57.7 kg 08/24/24 07:31 Body Mass Index (BMI) 19.9 08/24/24 07:31 Respiratory Assessment Respiratory Assessment - medical office manager: Respiratory Tract Infection Hx - medical office manager Hx Respiratory Tract Infection No 08/14/24 08:03 STOP Sleep Apnea STOP Sleep Apnea - medical office manager: STOP Sleep Apnea - medical office manager Hx Hypertension Yes: per pt, CONTROLLED WITH 08/14/24 08:03 MED Hx Sleep Apnea No 08/14/24 08:03 CPAP BIPAP Do you snore loudly (louder No 08/14/24 08:03 than talking or can be heard Do you often feel tired/ No 08/14/24 08:03 fatigued/ sleepy during daytime? Has anyone observed you stop No 08/14/24 08:03 breathing during sleep? STOP Results Negative 08/14/24 08:03 QUESTION #5 FULL TEXT : Do you snore loudly (louder than talking or can be heard through closed doors)? 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 Specify any problems Hx of Preganancy in last 3 N/A 08/14/24 08:03 Months Nurse Filling Out Transfusion MGRIFFITH 08/14/24 08:03 & Questions: Date: 08/14/24 08/14/24 08:03 Time: 08:04 08/14/24 08:03 Patient unable to answer at this time (ie. confused, unrespo /Reproduction History /Reproductive History - medical office manager: /Reproductive Hx- medical office manager Hx Now Gestational Age (in weeks): EDC: Hx Hx Para Hx Section SAB No 04/06/24 09:05 Active Medications Active Medications: Current Medications Generic Name Dose Route Start Last Admin Trade Name Freq PRN Reason Stop Dose Admin Cefazolin Sodium 2 gm/ N/A 20 mls @ 400 mls/hr 08/24/24 10:00 IV 08/24/24 10:02 PREOP ONE Sodium Chloride 1,000 mls @ 15 mls/hr 08/24/24 07:05 IV 08/29/24 20:24 .Q48H [facility] Protocol PFSH Medical History Cancer Easy bruising Wears glasses No natural teeth Alcohol use Syncope Prostate disease BPH (benign prostatic hyperplasia) History of stress test High cholesterol HTN (hypertension) Smoker Marijuana use Home Medications ?Medication ?Instructions ?Recorded ?Last Taken ?Type amlodipine 10 mg tablet 10 mg PO QDAY 01/24/24 Unkno wn History atorvastatin 20 mg tablet 20 mg PO QDAY 01/24/24 Unkno wn History fluticasone propionate 50 2 spray intranasal DAILY PRN nasal 01/24/24 Unknown History mcg/actuation nasal congestion spray,suspension lisinopril 40 mg tablet 40 mg PO QDAY 01/24/24 Unkno wn History Allergy/AdvReac Type Severity Reaction Status Date / Time No Known Allergies Allergy Verified 08/24/24 07:17 Family History Mother Cancer stomach Brother Heart disease Father Cancer skin Sister Thyroid disorder Surgical History No history of previous surgery Social History household members: significant other Smoking Status: Current every day smoker tobacco type: cigarettes alcohol intake: current alcohol intake frequency: a few times a week substance use type: marijuana Review of Systems (Anesthesia) ROS Narrative System reviewed and no additional complaints, except as documented. Physical Exam Const alert, oriented x3 and average body habitus Resp normal respiratory effort, normal air movement and clear to auscultation bilaterally Cardio regular rate, regular rhythm, no murmurs and diaphoretic 08/24/24 0753 <Electronically signed by Moses Weeks MD> Date _ Moses Weeks MD Cosigner Signature: Date CC: ~ Signed [facility] Work Phone: 1(899) 465-932503-13-2025 Discharge summary [facility] Medical Records Department [address] [place] [address] Instructions for Home/Discharge Instructions 08/24/24 0943 MR#: [id number] Acct: [id number] Name: DB PALOMARES Rep #:[id number] : 1960 64 From: Fortino goldsmith MD PCP: Dr. Everett Champion MD Status :REG [facility] Discharge Instructions Procedure Hernia Diet Discharge Diet: Light diet - advance as tolerated Activity Discharge Activity: May Not Drive (for 2-3 days or while taking narcotic pain meds.) and May Shower(with the bandage in place 1-2 days after surgery.) Lifting Restrictions: 20 pounds for 4 weeks. Additional Activity Instructions:: Climbing stairs is fine, walking is encouraged. Sitting in bed may be uncomfortable. Sitting up using your lateral muscles (sitting up sideways) is usually more comfortable. Do not drive, work heavy equipment of sign legal documents for 24 hours. If your hernia repair was an inguinal repair, you may have scrotal swelling, an ice pack and/or athletic support can provide more comfort. Pain medications may cause nausea, you should typically eat light foods as you take your pain medications. Pain medications may also cause constipation. If you have difficulty with this, discuss with your doctor. Alternate ibuprofen and Tylenol for pain control, oxycodone for breakthrough pain Dressing / Incision Call your doctor if your incision/area has: Continuous Slow Oozing, Sudden Increased Bleeding, Increased Pain/ Swelling, Increased Redness and Foul Smelling Discharge Call your doctor if you observe: Fever of 101 or Higher Suture Line Care: Avoid Pulling/Pushing and Avoid Pinching/Bending Remove Dressing in: 2 days (Remove clear bandages in 2 days, remove Steri- Stripsin 7 to 10 days.) Follow Up Care Please Follow Up With: Fortino Zhu MD When: Please call to schedule 2 week follow up appointment. [phone] Test Results: Test results from this visit will be discussed in further detail at your follow- up appointment, if applicable. Discharge Plan Admission Attending Provider: Fortino Zhu Primary Care Provider: Everett Champion Consulting Providers: Romeo Guzman Instructions Print Language: Tunisian Discharge Orders/Prescriptions Prescriptions: New oxycodone 5 mg Tablet 5 - 10 mg PO Q4H PRN PRN (Reason: Pain Score 4-10) 5 Days Qty: 10 0RF No Action amlodipine 10 mg tablet 10 mg PO QDAY atorvastatin 20 mg tablet 20 mg PO QDAY fluticasone propionate 50 mcg/actuation spray,suspension 2 spray intranasal DAILY PRN (Reason: nasal congestion) lisinopril 40 mg tablet 40 mg PO QDAY Other Ambulatory Orders: 12 Lead EKG (Routine) Timeframe: 20240815 Location: None Selected Ordered By: Dr. Romeo Guzman Referrals / Follow Up: Everett Champion MD [Primary Care Provider] - Disposition Disposition (needs filled in before D/C Order can be placed): Home, Self Care 08/24/24 0945Fortino Zhu MD CC: Dr. Romeo Guzman MD; Dr. Everett Champion MD ~ Signed [facility]03-13-2025 Procedure note [facility] Medical Records Department [address] [place] [address] Operative Report 08/24/24 0940 MR#: [id number] Acct: [id number] Name: DB PALOMARES Rep #:[id number] : 1960 64 From: Fortino goldsmith MD PCP: Dr. Everett Champion MD Status :REG [facility] [place] Location: [place] [address] Operative Report (Standard) Operative Information Date of Procedure: 08/24/24 Pre-Operative Diagnosis: Right inguinal hernia Post-Operative Diagnosis: Right inguinal hernia Surgery/Procedure Performed: Robotic assisted laparoscopic right inguinal herniarepair with mesh wage hand: Yes Label Printer: Kandi Solano Tasks completed by medical claims assistant: Opening and Closing Type of Anesthesia: Block,Axillary RN Documented Start/Stop Times: Operation Date: 08/24/24 09:00 Case Time Into Pre-Op 08/24/24 07:02 Out of Pre-Op 08/24/24 07:55 Anesthesia Start 08/24/24 08:00 Into Room 08/24/24 08:00 Procedure Start 08/24/24 08:19 Procedure End 08/24/24 08:47 Anesthesia End 08/24/24 08:54 Out of Room 08/24/24 08:54 Into Recovery 08/24/24 08:56 Procedure Start Time: 08:19 Procedure Stop Time: 08:47 Select all DRAINS/GRAFTS/IMPLANTS that apply: Implanted device Implanted device details: ProGrip mesh Estimated Blood Loss: 5 Specimen collected: No Description of surgery: The patient was brought back to the operating room and general anesthesia was induced. Of note the patient had polyps on his epiglottis and he was recommended to follow-up with ENT. After intubation the patient was prepped and draped inusual sterile fashion. A midline incision was made superior to the umbilicus and deepened to the fascia which was elevated and a Veress needle was placed into the abdomen and a drop test was performed. The abdomen is insufflated 15 mmHg. Veress needle was removedand a port was placed the care was placed into the abdomen and there were no injuries from entry. The patient was placed in Trendelenburg position and the inguinal regions were inspected. The patienthada small inguinal hernia on the right. Under direct visualization an 8 mm port was placed in the right lateral abdomen as well as the left lateral abdomen and then the robot was docked. Using electrocautery scissors the right peritoneum in the inguinal region was incised and dissection was carried inferiorly until the hernia sac was encountered. Once the hernia sac was reduced the inguinal canal was inspected and there was no lipoma. I was able to see all the way to the external ring. Next ProGrip mesh was unfolded over the hernia defect and then the peritoneum was reapproximated using a running 3 OV lock suture. The mesh was completely covered by peritoneum at the end of the case. Patient was awoken and brought to PACU in stable condition and tolerated the procedure well. Surgical Findings: Right inguinal hernia, polyps on epiglottis Complications Complications: No Admit VTE Documentation VTE Mechan Device Prophylaxis: SCD's 08/24/24941 Cosigner Signature (if applicable): CC: Dr. Fortino Zhu MD; Dr. Romeo Guzman MD; Dr. Everett Champion MD~ Signed [facility]03-13-2025 Consult note [facility] Medical Records Department [address] [place] [address] Anesthesia Postop Eval II 08/24/24923 MR#: [id number] Acct: [id number] Name: DB PALOMARES Rep #:[id number] : 1960 64 From: Moses Weeks MD PCP: Dr. Everett Champion MD Status :REG [facility] [place] Y Race: C Location: [place] [address] Anesthesia Postop Eval I Sum Postop Eval Completion status Anesthesia document: Postop Eval 1 completed: Yes Anesthesia Postop Eval I Summary Anesthesia Postop Eval I Summary: Anesthesia Postop Eval I: Assessment Summary Airway patent Yes 08/24/24 09:00 PNEUMATIC TUBE REPAIRER.DIMITRIOS Spontaneous unlabored Yes 08/24/24 09:00 PNEUMATIC TUBE REPAIRER.DIMITRIOS respirations Mental status Awake,Calm 08/24/24 09:00 PNEUMATIC TUBE REPAIRER.DIMITRIOS nausea No 08/24/24 09:00 PNEUMATIC TUBE REPAIRER.DIMITRIOS Vomiting No 08/24/24 09:00 PNEUMATIC TUBE REPAIRER.DIMITRIOS Anesthesia Postop Eval I: Fluid Summary Crystalloid volume administer 800 08/24/24 09:00 LETICIA (ml) Colloids volume administered ( ml) Blood Product volume administered (ml) Total IV fluid infused 800 08/24/24 09:00 LETICIA Anesthesia Postop Eval I: Summary Notes Anesthesia Complication No 08/24/24 09:00 LETICIA Anesthesia Complication Comment: Post-operative progress note Anesthesia: Postop Eval II Evaluation Mental status: Awake Pain Level: 6 (Receiving dilaudid.) nausea: No Vomiting: No Complications Anesthesia Complication: Yes Anesthesia Complication Comment:: This gentleman had vocal cord polypsnoted during intubation, photos captured by surgeon. I personally spoke to the patient in PACU regarding this finding, and advised the patient that he will need to follow up with ENT as soon as possible for further management and workup. The patient understood and verbalized understanding. The needfor follow/up with ENT was reiterated to the patient by the surgeon and thePACU staff. The polyps are three in number, and are at at the anterior, left side of the vocal cords. At this time, no vocalcord compression or tracheal compression was noted due to the mass. I advised the patient that the polyps could be secondary to a benign process or could be a more inflammatory process such as a cancerous process. The patient understands and has stated he will follow up with ENT upon discharge. 08/24/24926 > Date _ Moses Weeks MD Cosigner Signature: Date CC: ~ Signed [facility]03-13-2025 History and physical note Author Fortino Zhu [facility] Note Date/Time August 24, 2024 11: 25am [facility] Medical Records Department [address] [place] [address] History & Physical Exam 08/24/2422 MR#: [id number] Acct: [id number] Name: DB PLAOMARES Rep #:[id number] : 1960 64 From: Fortino goldsmith MD PCP: Dr. Everett Champion MD Status :[facility] Location: [place] [address] History and Physical Date of Admission: 08/24/24 Intake Vital Signs 01/23/2409:36 08/15/2507:47 08/15/2507:48 Height 5 ft 7 in 5 ft 7 in 5 ft 7 in Weight: 120 lb 126 lb 4 oz 126 lb BMI 18.8 19.8 19.7 BP 171/92 H 169/90 H 169/90 H Blood Pressure Location Lt brachial Rt brachial Rt brachial Position Sitting Sitting Sitting Respiration 18 18 Pulse 71 Pulse Source Monitor Temp 97.1 F L Temp Source Temporal Pulse Oximetry (%) 97 Oxygen Delivery Method room air Intake Visit Reasons: UPDATE H&P, R INGUINAL HERNIA Chief Complaint: update H&P, R inguinal hernia Is patient in pain?: No Allergies No Known Allergies Allergy (Verified 08/14/24 08:50) Medications ?Medication ?Instructions ?Recorded ?Confirmed ?Type amlodipine 10 mg tablet 10 mg PO QDAY 01/24/24 08/14/24 History atorvastatin 20 mg tablet 20 mg PO QDAY 01/24/24 08/14/24 History fluticasone propionate 50 2 spray intranasal DAILY PRN nasal 01/2308/14/24 History mcg/actuation nasal congestion spray,suspension lisinopril 40 mg tablet 40 mg PO QDAY 01/24/24 08/14/24 History PFSH Medical History Cancer Easy bruising Wears glasses No natural teeth Alcohol use Syncope Prostate disease BPH (benign prostatic hyperplasia) History of stress test High cholesterol HTN (hypertension) Smoker Marijuana use Surgical History No history of previous surgery Family History Mother Cancer stomachBrother Heart diseaseFather Cancer skinSister Thyroid disorder Social History household members: significant other Smoking Status: Current every day smoker tobacco type: cigarettes alcohol intake: current alcohol intake frequency: a few times a week substance use type: marijuana HPI HPI HPI: Patient is a 64-year-old male here for scheduling of his hernia repair. The patient has a right inguinal hernia and he is having pain on that side. I saw him over the summer for this and he would like his hernia repaired now that it is winter. He denies any new changes since last visit. ROS General General: Yes weight change and fatigue; No appetite, colon cancer, breast cancer or weakness HEENT HEENT: Yes eye injury and eye surgery; No difficulty swallowing, swollen glands or hoarseness Endo Endocrine: No thyroid disease, diabetes mellitus, thyroid cancer, Hair loss, heat intolerance or cold intolerance Skin Skin: No rash or changing moles Breast Breast: No left breast lump, right breast lump, nipple discharge, breast pain, abnormal mammogram, abnormal US or breast enlargement Musc Musculoskeletal: No back problems, arthritis, rheumatoid arthritis, gout or joint pain Cardio Cardiovascular: Yes high blood pressure; No murmur, pacemaker, heart disease, atrial fibrillation, heart attack, heart stent, palpitations, shortness of breat with exertion or chest pain Psych Psychiatric: Yes anxiety; No depression or hearing voices Resp Respiratory: No shortness of breath, No sleep apnea, No cough, No COPD, No asthma, No emphysema and No wheezing Gastro Gastrointestinal: Yes abdominal pain, No nausea or vomiting, No diarrhea, No constipation, No blood in stool, No acid reflux, No hemorrhoids, No ulcers, No gallbladder problem and No black,tarry stools Alek Hematologic: No blood thinners, No blood disorders, No bleeding, No anemia and No blood clots Neuro Neurologic: No system reviewed and no additional complaints, except as documented, No as per HPI, No abnormal gait, No abnormal hearing, No abnormal movements, No abnormal speech, No behavioral changes, No burning sensations, No confusion, No convulsions, No disequilibrium, No dizziness, No localized weakness, No frequent falls, No headache(s), No lack of coordination, No loss ofvision, No memory loss, Yes numbness, No other visual disturbances, No radicularpain, No restless legs, No sensory deficit, No syncope, Yes tingling, No tremor(s), No weakness and No other Exam Const General: cooperative Orientation: alert and oriented x3 HENMT Head: normal to inspection Neck Neck: normal visual inspection and full ROM Chest Chest palpation & inspection: normal inspection of the chest Resp Effort & Inspection: normal respiratory effort Auscultation: clear to auscultation bilaterally Cardio Rate: regular rate Rhythm: regular rhythm GI Inspection: non-distended Palpation: soft, hernia indirect inguinal on the right and nontender Skin General: no rashes or lesions noted Neuro General: patient alert and patient oriented x3 Extrem General: full ROM Psych Appearance: grossly normal Mental Status: mental status grossly normal Assessment and Plan Assessment and Plan (1) Right inguinal hernia: Status: Acute Plan: Patient has a small right inguinal hernia which is causing him pain. The patient does not have any pain on the left side. I was not able to palpate a hernia on the left. I discussed robotic assisted laparoscopic right inguinal hernia repair with mesh. I discussed the risks including but not limited to bleeding, infection, injury to surrounding organs such as the blood supply to the testicle or bowel or bladder. Patient understands the risks and is willing to proceed. Fortino Zhu MD Pager: [facility] [address] [place] [address], [address] [place] [address] Office: I have seen and reexamined the patient and reviewed the H&P. THere are no clinical changes 08/24/24721 <Electronically signed by Fortino Zhu MD> Cosigner Signature (if applicable): CC: Dr. Frotino Zhu MD; Dr. Everett Champion MD~ Signed [facility] Work Phone: [phone] Consult note [facility] Medical Records Department [address] [place] [address] Pre-Anesthesia Evaluation 08/24/24 0755 MR#: [id number] Acct: [id number] Name: DB PALOMARES Rep #:[id number] : 1960 64 From: Moses Weeks MD PCP: Dr. Everett Champion MD Status :REG UTC Y Race: C Location: [facility]-12 ASA Classification* ASA Classification ASA Classification: 2 (Patient is a heavy smoker, HTN, marijuana use, BPH, HLD. Recommend some precedex towards end of procedure if BPs tolerate. ) Assessment & Plan Anesthesia* Anesthesia Assessment Anesthesia Assessment: Discussed sedation and/or anesthesia options, risks, benefits, and alternatives with patient/parents/legal guardian/POA. Questions invited. The patient/parents/legal guardian/POA seems to understand and agrees to proceedwith anesthesia plan. Reviewed the physical assessment, medical history, allergy history and patient home medications list prior to surgery/procedure/anesthetic and documented any changes. Performed airway and anesthesia risk assessments. Anesthesia Type Anesthesia Type: General History Source History Obtained from:: Patient and Chart Anesthesia Focused Assessment* Temperature: 97.9 F Pulse Rate: 62 Blood Pressure: 159/86 Respiratory Rate: 18 Pulse Ox: 98 Oxygen Delivery Method: Room Air Airway Assessment Mouth opens: >3 cm Mallampati Score: II Teeth Condition: Missing Neck Range of motion (ROM): Full ROM Focused Labs Anesthesia Preop lab: CBC WBC 10.6 K/mm3 (4.4-11.0) 08/15/24 10:51 08/15/24 RBC 5.48 M/mm3 (4.6-6.2) 08/15/24 10:51 08/15/24 Hgb 16.3 g/dL (13.0-16.5) 08/15/24 10:51 08/15/24 Hct 48.3 % (40-54) 08/15/24 10:51 08/15/24 Plt Count 223 K/mm3 (150-450) 08/15/24 10:51 08/15/24 CHEMISTRY Potassium 4.6 mmol/L (3.5-5.1) 04/04/24 10:04/04/24 Sodium 138 mmol/L (136-145) 04/04/24 10:04/04/24 BUN 23 mg/dL (7-18) H 04/04/24 10:04/04/24 Creatinine 1.08 mg/dL (0.70-1.30) 04/04/24 10:04/04/24 Glucose 100 mg/dL (74-106) 04/04/24 10:04/04/24 TSH 1.870 uIU/mL (0.358-3.740) 04/04/24 10:03/15 COAG PT 13.0 SECONDS (11.7-14.9) 08/15/24 10:51 Pre-Assessment Diagnosis/Proposed Procedure Planned Operative Procedure(s): (R) Lap Robotic Inguinal Hernia w/mesh Anesthesia History 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 When Was Last Pacemaker Check QUESTION #4 FULL TEXT: You/Your Family Experience fever (hyperthermia) with Anesthesia Last Oral Intake Last Oral intake: Last Oral Intake NPO since 06:00 08/24/24 07:31 Meds taken in AM with sips of No 08/24/24 07:31 water? Meds patient instructed to take am of surgery PONV PONV - medical office manager: PONV - medical office manager Female No 08/14/24 08:03 HX of Motion Sickness No 08/14/24 08:03 HX of N/V After Surgery No 08/14/24 08:03 Non-Smoker No 08/14/24 08:03 Duration of Surgery greater Yes 08/14/24 08:03 than 60 minutes Number of Risk Factors 1 08/14/24 08:03 PONV Score Low Risk 08/14/24 08:03 Height & Weight Height & Weight: Anesthesia: Height & Weight Height 5 ft 7 in 08/24/24 07:31 Weight: 57.7 kg 08/24/24 07:31 Body Mass Index (BMI) 19.9 08/24/24 07:31 Respiratory Assessment Respiratory Assessment - medical office manager: Respiratory Tract Infection Hx - medical office manager Hx Respiratory Tract Infection No 08/14/24 08:03 STOP Sleep Apnea STOP Sleep Apnea - medical office manager: STOP Sleep Apnea - medical office manager Hx Hypertension Yes: per pt, CONTROLLED WITH 08/14/24 08:03 MED Hx Sleep Apnea No 08/14/24 08:03 CPAP BIPAP Do you snore loudly (louder No 08/14/24 08:03 than talking or can be heard Do you often feel tired/ No 08/14/24 08:03 fatigued/ sleepy during daytime? Has anyone observed you stop No 08/14/24 08:03 breathing during sleep? STOP Results Negative 08/14/24 08:03 QUESTION #5 FULL TEXT : Do you snore loudly (louder than talking or can be heard through closeddoors)? 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 Specify any problems Hx of Preganancy in last 3 N/A 08/14/24 08:03 Months Nurse Filling Out Transfusion MGRIFFITH 08/14/24 08:03 & Questions: Date: 08/14/24 08/14/24 08:03 Time: 08:04 08/14/24 08:03 Patient unable to answer at this time (ie. confused, unrespo /Reproduction History /Reproductive History - medical office manager: /Reproductive Hx- medical office manager Hx Now Gestational Age (in weeks): EDC: Hx Hx Para Hx Section SAB No 04/06/24 09:05 Active Medications Active Medications: Current Medications Generic Name Dose Route Start Last Admin Trade Name Freq PRN Reason Stop Dose Admin Cefazolin Sodium 2 gm/ N/A 20 mls @ 400 mls/hr 08/24/24 10:00 IV 08/24/24 10:02 PREOP ONE Sodium Chloride 1,000 mls @ 15 mls/hr 08/24/24 07:05 IV 08/29/24 20:24 .Q48H YOSELYN Protocol PFSH Medical History Cancer Easy bruising Wears glasses No natural teeth Alcohol use Syncope Prostate disease BPH (benign prostatic hyperplasia) History of stress test High cholesterol HTN (hypertension) Smoker Marijuana use Home Medications ?Medication ?Instructions ?Recorded ?Last Taken ?Type amlodipine 10 mg tablet 10 mg PO QDAY 01/24/24 Unkno wn History atorvastatin 20 mg tablet 20 mg PO QDAY 01/24/24 Unkno wn History fluticasone propionate 50 2 spray intranasal DAILY PRN nasal 01/24/24 Unknown History mcg/actuation nasal congestion spray,suspension lisinopril 40 mg tablet 40 mg PO QDAY 01/24/24 Unkno wn History Allergy/AdvReac Type Severity Reaction Status Date / Time No Known Allergies Allergy Verified 08/24/24 07:17 Family History Mother Cancer stomach Brother Heart disease Father Cancer skin Sister Thyroid disorder Surgical History No history of previous surgery Social History household members: significant other Smoking Status: Current every day smoker tobacco type: cigarettes alcohol intake: current alcohol intake frequency: a few times a week substance use type: marijuana Review of Systems (Anesthesia) ROS Narrative System reviewed and no additional complaints, except as documented. Physical Exam Const alert, oriented x3 and average body habitus Resp normal respiratory effort, normal air movement and clear to auscultation bilaterally Cardio regular rate, regular rhythm, no murmurs and diaphoretic 08/24/24 0757 > Date _ Moses [facility] Signature: Date CC: ~ Signed [facility]03-13-2025 [facility] Medical Records Department [address] [place] [address] History Physical Exam 08/24/24 0722 MR#: [id number] Acct: [id number] Name: DB PALOMARES Rep #: [id number] : 1960 64 From: Fortino Zhu MD PCP: Dr. Everett Champion MD Status:[facility] Location: [place] [address] History and Physical Date of Admission: 08/24/24 Intake Vital Signs 01/23/2409:36 08/15/2507:47 08/15/2507:48 Height 5 ft 7 in 5 ft 7 in 5 ft 7 in Weight: 120 lb 126 lb 4 oz 126 lb BMI 18.8 19.8 19.7 BP 171/92 H 169/90 H 169/90 H Blood Pressure Location Lt brachial Rt brachial Rt brachial Position Sitting Sitting Sitting Respiration 18 18 Pulse 71 Pulse Source Monitor Temp 97.1 F L Temp Source Temporal Pulse Oximetry (%) 97 Oxygen Delivery Method room air Intake Visit Reasons: UPDATE H P, R INGUINAL HERNIA Chief Complaint: update H P, R inguinal hernia Is patient in pain?: No Allergies No Known Allergies Allergy (Verified 08/14/24 08:50) Medications ???Medication ???Instructions ???Recorded ???Confirmed ???Type amlodipine 10 mg tablet 10 mg PO QDAY 01/24/24 08/14/24 History atorvastatin 20 mg tablet 20 mg PO QDAY 01/24/24 08/14/24 History fluticasone propionate 50 2 spray intranasal DAILY PRN nasal 01/24/24 History mcg/actuation nasal congestion spray,suspension lisinopril 40 mg tablet 40 mg PO QDAY 01/24/24 08/14/24 History PFSH Medical History Cancer Easy bruising Wears glasses No natural teeth Alcohol use Syncope Prostate disease BPH (benign prostatic hyperplasia) History of stress test High cholesterol HTN (hypertension) Smoker Marijuana use Surgical History No history of previous surgery Family History Mother Cancer stomachBrother Heart diseaseFather Cancer skinSister Thyroid disorder Social History household members: significant other Smoking Status: Current every day smoker tobacco type: cigarettes alcohol intake: current alcohol intake frequency: a few times a week substance use type: marijuana HPI HPI HPI: Patient is a 64-year-old male here for scheduling of his hernia repair. The patient has a right inguinal hernia and he is having pain on that side. I saw him over the summer for this and he would like his hernia repaired now that it is winter. He denies any new changes since last visit. ROS General General: Yes weight change and fatigue; No appetite, colon cancer, breast cancer or weakness HEENT HEENT: Yes eye injury and eye surgery; No difficulty swallowing, swollen glands or hoarseness Endo Endocrine: No thyroid disease, diabetes mellitus, thyroid cancer, Hair loss, heat intolerance or cold intolerance Skin Skin: No rash or changing moles Breast Breast: No left breast lump, right breast lump, nipple discharge, breast pain, abnormal mammogram, abnormal US or breast enlargement Musc Musculoskeletal: No back problems, arthritis, rheumatoid arthritis, gout or joint pain Cardio Cardiovascular: Yes high blood pressure; No murmur, pacemaker, heart disease, atrial fibrillation, heart attack, heart stent, palpitations, shortness of breat with exertion or chest pain Psych Psychiatric: Yes anxiety; No depression or hearing voices Resp Respiratory: No shortness of breath, No sleep apnea, No cough, No COPD, No asthma, No emphysema and No wheezing Gastro Gastrointestinal: Yes abdominal pain, No nausea or vomiting, No diarrhea, No constipation, No blood in stool, No acid reflux, No hemorrhoids, No ulcers, No gallbladder problem and No black,tarry stools Alek Hematologic: No blood thinners, No blood disorders, No bleeding, No anemia and No blood clots Neuro Neurologic: No system reviewed and no additional complaints, except as documented, No as per HPI, No abnormal gait, No abnormal hearing, No abnormal movements, No abnormal speech, No behavioral changes, No burning sensations, No confusion, No convulsions, No disequilibrium, No dizziness, No localized weakness, No frequent falls, No headache(s), No lack of coordination, No loss of vision, No memory loss, Yes numbness, No other visual disturbances, No radicular pain, No restless legs, No sensory deficit, No syncope, Yes tingling, No tremor(s), No weakness and No other Exam Const General: cooperative Orientation: alert and oriented x3 HENMT Head: normal to inspection Neck Neck: normal visual inspection and full ROM Chest Chest palpation inspection: normal inspection of the chest Resp Effort Inspection: normal respiratory effort Auscultation: clear to auscultation bilaterally Cardio Rate: regular rate Rhythm: regu (more content not included)...[facility]03-07-2025 Radiology Diagnostic study note [facility] Imaging Services [address] [place] [address] Lung Screening MR#: [id number] Acct: [id number] Name: DB PALOMARES Rep #: [id number] : 1960 M 64 From: Frank Cortez MD PCP: Dr. Everett Champion MD Status: REG CLI Study:Low Dose CT Lung Screening Date of Exam : 08/18/24 Exam# [id number] Ordering Dr: Lauren Champion MD PROCEDURE: LOW DOSE CT LUNG SCREENING REASON FOR EXAM: Current smoker. Patient has smoked 1-1/2 pack per day for 56 years. TECHNIQUE: Low Dose CT Lung Screening without contrast COMPARISON: Comparison is made with prior study dated August 17, 2023. FINDINGS: PULMONARY NODULES: (Only nodules >6mm are reported) Nodules described below are on series 1 unless otherwise specified. Pulmonary Nodules: Stable 5 mm noncalcified nodule in the posterior aspect of the right upper lobe as seen on axial image number 47. Hardware:None Lymph Nodes:No mediastinal hilar or axillary lymphadenopathy. Heart and Vasculature:Normal heart size. No pericardial effusion.Thoracic aorta and pulmonary arteries have normal contours; noncontrast technique limits evaluation. Coronary Artery Calcifications: Present Lungs and Airways: Mild emphysematous changes are present. Pleura:No pleural effusion. No pneumothorax. Upper Abdomen:Visualized portions of the upper abdominal viscera are unremarkable. Bones:Degenerative changes of the thoracic spine. CT/Low Dose CT Lung Screening IMPRESSION: 1. BASED ON THE ACR LUNG RADS FOR THE MOST SUSPICIOUS NODULE (IF ANY) DESCRIBEDIN THIS REPORT, THE OVERALL LUNG RADS SCORE IS 2.2 - BENIGN (BASED ON IMAGING FEATURES OR INDOLENT BEHAVIOR). RECOMMEND 12- MONTH SCREENING LDCT.. 2. SMOKING CESSATION COUNSELING IS RECOMMENDED IF THE PATIENT IS STILL SMOKING. 3. OTHER SIGNIFICANT FINDINGSNone. One or more dose reduction techniques were used (e.g., Automated exposure control, adjustment of the mA and/or kV according to patient size, use of iterative reconstruction technique). The following information is provided for reference:Lung-RADS 2022 Assessment Categories. Additional information involving Lung-RADS is available at www.acr.org. 0-INCOMPLETE 1-NEGATIVE:No nodules or definitely benign nodules. Complete, central, popcorn,or centric ring calcifications OR fat containing 2-BENIGN APPEARANCE (based on imaging features or indolent behavior). Juxtapleural nodule: < 10mm AND solid; smooth margins; oval, entiform, or triangular shape Solid nodule: <6mm at baseline or new< 4mm Part solid Nodule: < 6mm total mean diameter at baseline Nonsolid nodule:(GGN) < 30mm OR >=30mm stable or slowly growing Airway nodule, subsegmental at baseline, new, or stable Category 3 nodule stableor decreased in size at 6-month follow-up CT or Category 3 or 4A nodules that resolve on follow-up OR category 4B findings proven to be benign following diagnotic work up. 3 - Probably Benign (Based on imaging features or behavior) Solid Nodule: >= 6 to <8mm at baseline OR new 4 to <6mm Part-solid nodule: >= 6mm toal mean diam. with solid component <6mm at baseline OR new < 6mm total mean diam. Non-solid nodule: GGN >= 30mm at baseline or new Atypical pulmonary cyst: Growing cystic component (mean diam.) of thick-walled cyst Category 4A nodule stable or decreased in size at 3-month follow-up CT (excl.airway). 4A - Suspicious Solid nodule: >=8 to < 15mm at baseline OR growing < 8mm OR new 6 to < 8mm Part solid nodule: >= 6mm total mean diam. w/ solid component >=6mm to < 8mm at baseline OR new or growing < 4mm solid component Airway nodule, segmental or more proximal at baseline or new Atypical pulmonary cyst: Thick-walled OR multilocular at baseline OR becomes multilocular 4B - Very Suspicious Airway nodule, segmental or more proximal, and stable or growing Solid nodule: >= 15mm at baseline OR new or growing >= 8mm Part solid nodule: Solid component >= 8mm OR new or growing >= 4mm solid component Atypical pulmonary cyst: Thick-walled with growing wall thickness/nodularity OR Growing multilocular (mean diam.) OR Multilocular with increased loculation or new/increased opacity Slow-growing solid or part solid nodule w/ growth over multiple screening exams 4X - Very Suspicious Category 3 or 4 nodules with additional features that increase the suspicion forlung cancer. S - Clinically Significant or potentially significant findings (non-lung cancer) Reading Location: [id number] CC: Dr. Everett Champion MD ~ Roto Mixer Operator: Signed [facility]03-03-2025 Evaluation note* Diagnosis Onset Date Resolution Status Admit Date Right inguinal hernia acute Aug 8:43am [facility] Work Phone: [phone] Telephone encounter Note* Telephone Encounter - Erika Morales LPN - 05/25/2024 11:20 AM EST Called patient. Verified name and date of . Notified of results/orders. Verbalizes understanding. Erika Morales LPN [facility]12-12-2024 Miscellaneous Notes* Telephone Encounter - Erika Morales LPN - 05/25/2024 11:20 AM EST Called patient. Verified name and date of . Notified of results/orders. Verbalizes understanding. Erika Morales LPN * Telephone Encounter - Carlos Nielsen PA-C - 05/24/2024 6:05 PM EST Please notify patient that his IsoPSA came back at and a PSA of 5.3% The IsoPSA being less than 6.1 indicates low risk of high grade prostate cancer No prostate biopsy recommended at this time. Will; follow up with PSA in 1 year, I will release the results to [facility]. ROMIE Burns, MAL, PAT documented in this encounter[facility]12-11-2024 Telephone encounter Note * Telephone Encounter - Carlos Nielsen PA-C - 05/24/2024 6:05 PM EST Please notify patient that his IsoPSA came back at and a PSA of 5.3% The IsoPSA being less than 6.1 indicates low risk of high grade prostate cancer No prostate biopsy recommended at this time. Will; follow up with PSA in 1 year, I will release the results to [facility]. ROMIE Burns, CAPAT [facility]12-11-2024 Telephone encounter Note* Telephone Encounter - Erika Morales LPN - 05/24/2024 9:08 AM EST Received medical records from [facility]. Via [employer]. Scanned to [employer] Erika Morales LPN [facility]12-11-2024 Miscellaneous Notes* Telephone Encounter - Erika Morales LPN - 05/24/2024 9:08 AM EST Received medical records from [facility]. Via [employer]. Scanned to [employer] Erika Morales LPN documented in this encounterKindred Healthcare12-10-2024 NoteHNO ID: [id number] Author: CARLOS NIELSEN PA-C Service: ? Author Type: Physician 411 Directory Assistance Operator Type: Progress Notes Filed: 06/26/2024 19:57 Note Text: [facility] NEW PATIENT CLINIC NOTE SERVICE DATE: May 23, 2024 NAME: Db Palomares CHIEF COMPLAINT: Elevated PSA HISTORY OF PRESENT ILLNESS: Db Palomares is a 64 year old male new patient here for Elevated PSA The patient reports elevated PSA of 11.2 on report given by patient on 03/2024 Given such a increase of his PSA to 11.2 I have recommended an IsoPSA test be performed for biopsy indication He will have test done at lab today PSA - 1.28 07/16/2022 PSA - 11.20 04/04/2024 LUTS: No current LUTS LABS: PSA - 1.28 07/16/2022 PSA - 11.20 04/04/2024 MEDICATIONS: lisinopril (ZESTRIL) 40 mg tablet Take 1 tablet by mouth every afternoon. atorvastatin (LIPITOR) 20 mg tablet Take 1 tablet by mouth every afternoon. amLODIPine (NORVASC) 10 mg tablet Take 1 tablet by mouth every afternoon. ciprofloxacin HCl (CIPRO) 500 mg tablet Take 1 tablet by mouth every 12 hours. (Patient not taking: Reported on 05/23/2024) albuterol HFA (PROAIR HFA) 90 mcg/actuation inhaler Inhale 2 Puffs as instructed every 6 hours as needed. (Patient not taking: Reported on 05/18/2024) benzonatate (TESSALON PERLES) 100 mg capsule Take 2 capsules by mouth three times daily as needed. (Patient not taking: Reported on 05/18/2024) PAST MEDICAL HISTORY: PAST MEDICAL HISTORY Diagnosis Date Atypical nevus of back Elevated prostate specific antigen (PSA) HTN (hypertension) Tobacco use disorder PAST SURGICAL HISTORY: PAST SURGICAL HISTORY Procedure Laterality Date SKIN BX, 1 LESION 04/13/2024 TOOTH EXTRACTION All teeth removed FAMILY HISTORY: FAMILY HISTORY Problem Relation Age of Onset other (Stomach Cancer) Mother Brain Cancer Father Cancer Brother No Known Problems Maternal Grandmother No Known Problems Maternal Grandfather No Known Problems Paternal Grandmother No Known Problems Paternal Grandfather SOCIAL HISTORY: Social Connections: Not on file REVIEW OF SYSTEMS: GENERAL: No fever, chills, weight loss, or fatigue. ENMT: Negative CARDIOVASCULAR:NO CHEST PAIN, PALPITATIONS, ANKLE EDEMA RESPIRATORY: No chronic cough, wheezing, dyspnea, hemoptysis. GENITOURINARY: SEE HPI MUSCULOSKELETAL:NO CHRONIC BACK PAIN, ARTHRITIS, CHRONIC NECK PAIN SKIN: NO VARICOSE VEINS, RASH, ABNORMAL ITCHING HEME/LYMPH/IMMUNE:Negative for prolonged bleeding, bruising easily or swollen nodes NEUROLOGICAL: NO HEADACHES, NUMBNESS, SEIZURES, STROKE DIABETES: All other systems reviewed and are negative PHYSICAL EXAMINATION: Blood pressure 130/70, pulse 66, temperature 36.8 ?C (98.2 ?F), temperature source Temporal, resp. rate 14, height 164.8 cm (5' 4.88), weight 56.2 kg (124 lb), SpO2 97%. GENERAL: WNL nutrition, no deformities, healthy appearing NEURO: Awake, alert and oriented x 3 and Normal gait PSYCH: No signs of depression, anxiety, or agitation ENMT (Ear, Nose, Mouth, Throat): No masses, adenopathy, icterus. Thyroid nonpalpable RESP: NL effort, no retractions or purse-lip breathing. CV: No extremity swelling, varices, edema, pallor, erythema GASTROINTESTINAL: Soft, nontender, nondistended, no masses. HERNIAS: None SKIN: No rash, lesions No palpable lymphadenopathy MUSCULOSKELETAL: Extremities normal. No deformities, edema, clubbing or skin discoloration. GENITOURINARY: MALE EXAM: Exam NOT Indicated since he will be getting IsoPSA test drawn today PROBLEM LIST REVIEW: Yes LABS: Results for orders placed or performed in visit on 05/23/24 UA DIP, URINE (POC) Result Value Ref Range GLUCOSE UA (POCT) Negative Negative mg/dL BILIRUBIN UA (POCT) Negative Negative KETONE UA (POCT) Negative Negative mg/dL SPECIFIC GRAVITY UA (POCT) 1.015 1.005 - 1.030 HEMOGLOBIN/BLOOD UA (POCT) Moderate (A) Negative PH UA (POCT) 5.5 4.5 - 8.0 PROTEIN UA (POCT) Negative Negative mg/dL UROBILINOGEN UA (POCT) 0.2 Normal E.U./dL NITRITE UA (POCT) Negative Negative LEUKOCYTES UA (POCT) Negative Negative COLOR UA (POCT) Yellow CLARITY UA (POCT) Clear PROCEDURES: PVR: 0 ml ASSESSMENT/PLAN: 1. Elevated prostate specific antigen (PSA) - ICD9: 790.93, ICD10: R97.20 (primary diagnosis) 2. Screening for genitourinary condition - ICD9: V81.6, ICD10: Z13.89 Most recent PSA - .2 > recommended IsoPSA today to see if prostate biopsy is indicated New Diagnosis of unknown prognosis testing to follow > Follow -up after testing completed if need to discuss results and plan Carlos Nielsen, MPAS, MT, PA-[facility]Cl[facility] History of Present illness Narrative* Carlos Nielsen PA-C - 05/23/2024 7:46 PM EST Images from the original note were not included. [facility] [place] NEW PATIENT CLINIC NOTE SERVICE DATE: May 23, 2024 NAME: Db Palomares CHIEF COMPLAINT: Elevated PSA HISTORY OF PRESENT ILLNESS: Db Palomares is a 64 year old male new patient here for Elevated PSA The patient reports elevated PSA of 11.2 on report given by patient on 03/2024 Given such a increase of his PSA to 11.2 I have recommended an IsoPSA test be performed for biopsy indication He will have test done at lab today PSA - 1.28 07/16/2022 PSA - 11.20 04/04/2024 LUTS: No current LUTS LABS: PSA - 1.28 07/16/2022 PSA - 11.20 04/04/2024 MEDICATIONS: lisinopril (ZESTRIL) 40 mg tablet Take 1 tablet by mouth every afternoon. atorvastatin (LIPITOR) 20 mg tablet Take 1 tablet by mouth every afternoon. amLODIPine (NORVASC) 10 mg tablet Take 1 tablet by mouth every afternoon. ciprofloxacin HCl (CIPRO) 500 mg tablet Take 1 tablet by mouth every 12 hours. (Patient not taking:Reported on 05/23/2024) albuterol HFA (PROAIR HFA) 90 mcg/actuation inhaler Inhale 2 Puffs as instructed every 6 hours as needed. (Patient not taking: Reported on 05/18/2024) benzonatate (TESSALON PERLES) 100 mg capsule Take 2 capsules by mouth three times daily as needed. (Patient not taking: Reported on 05/18/2024) PAST MEDICAL HISTORY: PAST MEDICAL HISTORY Diagnosis Date Atypical nevus of back Elevated prostate specific antigen (PSA) HTN (hypertension) Tobacco use disorder PAST SURGICAL HISTORY: PAST SURGICAL HISTORY Procedure Laterality Date SKIN BX, 1 LESION 04/13/2024 TOOTH EXTRACTION All teeth removed FAMILY HISTORY: FAMILY HISTORY Problem Relation Age of Onset other (Stomach Cancer) Mother Brain Cancer Father Cancer Brother No Known Problems Maternal Grandmother No Known Problems Maternal Grandfather No Known Problems Paternal Grandmother No Known Problems Paternal Grandfather SOCIAL HISTORY: Social Connections: Not on file REVIEW OF SYSTEMS: GENERAL: No fever, chills, weight loss, or fatigue. ENMT: Negative CARDIOVASCULAR:NO CHEST PAIN, PALPITATIONS, ANKLE EDEMA RESPIRATORY: No chronic cough, wheezing, dyspnea, hemoptysis. GENITOURINARY: SEE HPI MUSCULOSKELETAL:NO CHRONIC BACK PAIN, ARTHRITIS, CHRONIC NECK PAIN SKIN: NO VARICOSE VEINS, RASH, ABNORMAL ITCHING HEME/LYMPH/IMMUNE:Negative for prolonged bleeding, bruising easily or swollen nodes NEUROLOGICAL: NO HEADACHES, NUMBNESS, SEIZURES, STROKE DIABETES: All other systems reviewed and are negative PHYSICAL EXAMINATION: Blood pressure 130/70, pulse 66, temperature 36.8 C (98.2 F), temperature source Temporal, resp. rate 14, height 164.8 cm (5' 4.88), weight 56.2 kg (124 lb), SpO2 97%. GENERAL: WNL nutrition, no deformities, healthy appearing NEURO: Awake, alert and oriented x 3 and Normal gait PSYCH: No signs of depression, anxiety, or agitation ENMT (Ear, Nose, Mouth, Throat): No masses, adenopathy, icterus. Thyroid nonpalpable RESP: NL effort, no retractions or purse-lip breathing. CV: No extremity swelling, varices, edema, pallor, erythema GASTROINTESTINAL: Soft, nontender, nondistended, no masses. HERNIAS: None SKIN: No rash, lesions No palpable lymphadenopathy MUSCULOSKELETAL: Extremities normal. No deformities, edema, clubbing or skin discoloration. GENITOURINARY: MALE EXAM: Exam NOT Indicated since he will be getting IsoPSA test drawn today PROBLEM LIST REVIEW: Yes LABS: Results for orders placed or performed in visit on 05/23/24 UA DIP, URINE (POC) Result Value Ref Range GLUCOSE UA (POCT) Negative Negative mg/dL BILIRUBIN UA (POCT) Negative Negative KETONE UA (POCT) Negative Negative mg/dL SPECIFIC GRAVITY UA (POCT) 1.015 1.005 - 1.030 HEMOGLOBIN/BLOOD UA (POCT) Moderate (A) Negative PH UA (POCT) 5.5 4.5 - 8.0 PROTEIN UA (POCT) Negative Negative mg/dL UROBILINOGEN UA (POCT) 0.2 Normal E.U./dL NITRITE UA (POCT) Negative Negative LEUKOCYTES UA (POCT) Negative Negative COLOR UA (POCT) Yellow CLARITY UA (POCT) Clear PROCEDURES: PVR: 0 ml ASSESSMENT/PLAN: 1. Elevated prostate specific antigen (PSA) - ICD9: 790.93, ICD10: R97.20 (primary diagnosis) 2. Screening for genitourinary condition - ICD9: V81.6, ICD10: Z13.89 Most recent PSA - 11.2 > recommended IsoPSA today to see if prostate biopsy is indicated New Diagnosis of unknown prognosis testing to follow > Follow -up after testing completed if need to discuss results and plan ROMIE Burns MT, PA-C * Erika Morales LPN - 05/23/2024 1:31 PM EST Verified name and date of . CC Post Void Residual HPI: Db Palomares is a 64 year old male. The patient is here now for an appointment with ROMIE Burns MT, PA-COV. Procedure: Explained procedure to patient and verbalizes understanding. Performed a PVR. Patient urinated and instructed to empty bladder as much as possible just prior to having PVR done using bladder ultrasound scanner. Results of scan: 0 mL The patient tolerated the procedure well. Plan: Appointment with Carlos. [facility] this [facility]12-10-2024 Instructions* Patient Instructions* Carlos Nielsen PA-C - 05/23/2024 2:05 PM EST > IsoPSA at lab If PSA > 4 and isoPSA is > 6.1% then prostate biopsy is recommended documented in this encounterKindred Healthcare12-10-2024 NoteHNO ID: [id number] Author: ERIKA MORALES LPN Service: ? Author Type: LICENSED NURSE Type: Progress Notes Filed: 06/26/2024 19:57 Note Text: Verified name and date of . CC Post Void Residual HPI: Db Palomares is a 64 year old male. The patient is here now for an appointment with ROMIE Burns, MT, PA-COV. Procedure: Explained procedure to patient and verbalizes understanding. Performed a PVR. Patient urinated and instructed to empty bladder as much as possible just prior to having PVR done using bladder ultrasound scanner. Results of scan: 0 mL The patient tolerated the procedure well. Plan: Appointment with Carlos.[facility] summary Author Fortino Zhu [facility] Note Date/Time August 24, 2024 9:4 5am [facility] Medical Records Department [address] [place] [address] Instructions for Home/Discharge Instructions 08/24/24 0943 MR#: [id number] Acct: [id number] Name: DB PALOMARES Rep #:[id number] : 1960 64 From: Fortino goldsmith MD PCP: Dr. Everett Champion MD Status :REG [facility] [place] Discharge Instructions Procedure Hernia Diet Discharge Diet: Light diet - advance as tolerated Activity Discharge Activity: May Not Drive (for 2-3 days or while taking narcotic pain meds.) and May Shower (with the bandage in place 1-2 days after surgery.) Lifting Restrictions: 20 pounds for 4 weeks. Additional Activity Instructions:: Climbing stairs is fine, walking is encouraged. Sitting in bed may be uncomfortable. Sitting up using your lateral muscles (sitting up sideways) is usually more comfortable. Do not drive, work heavy equipment of sign legal documents for 24 hours. If your hernia repair was an inguinal repair, you may have scrotal swelling, an ice pack and/or athletic support can provide more comfort. Pain medications may cause nausea, you should typically eat light foods as you take your pain medications. Pain medications may also cause constipation. If you have difficulty with this, discuss with your doctor. Alternate ibuprofen and Tylenol for pain control, oxycodone for breakthrough pain Dressing / Incision Call your doctor if your incision/area has: Continuous Slow Oozing, Sudden Increased Bleeding, Increased Pain/ Swelling, Increased Redness and Foul Smelling Discharge Call your doctor if you observe: Fever of 101 or Higher Suture Line Care: Avoid Pulling/Pushing and Avoid Pinching/Bending Remove Dressing in: 2 days (Remove clear bandages in 2 days, remove Steri- Stripsin 7 to 10 days.) Follow Up Care Please Follow Up With: Fortino Zhu MD When: Please call to schedule 2 week follow up appointment. [phone] Test Results: Test results from this visit will be discussed in further detail at your follow- up appointment, if applicable. Discharge Plan Admission Attending Provider: Fortino Zhu Primary Care Provider: Everett Champion Consulting Providers: Romeo Guzman Instructions Print Language: Tunisian Discharge Orders/Prescriptions Prescriptions: New oxycodone 5 mg Tablet 5 - 10 mg PO Q4H PRN PRN (Reason: Pain Score 4-10) 5 Days Qty: 10 0RF No Action amlodipine 10 mg tablet 10 mg PO QDAY atorvastatin 20 mg tablet 20 mg PO QDAY fluticasone propionate 50 mcg/actuation spray,suspension 2 spray intranasal DAILY PRN (Reason: nasal congestion) lisinopril 40 mg tablet 40 mg PO QDAY Other Ambulatory Orders: 12 Lead EKG (Routine) Timeframe: [id number] Location: None Selected Ordered By: Dr. Romeo Guzman Referrals / Follow Up: Everett Champion MD [Primary Care Provider] - Disposition Disposition (needs filled in before D/C Order can be placed): Home, Self Care 08/24/24 0945<Electronically signed by Fortino Zhu MD>Fortino Zhu MD CC: Dr. Romeo Guzman MD; Dr. Everett Champion MD ~ Signed [facility] Work Phone: Evaluation noteNo assessment information available [facility] Work Phone: Evaluation note* Diagnosis Elevated prostate specific antigen (PSA)- Primary documented [facility]* Diagnosis Elevated prostate specific antigen (PSA)- Primary Screening for genitourinary condition Screening for other and unspecified genitourinary condition documented in this encounter [facility] (narrative)No reason for referral information availableWCincinnati Shrin[facility] Work Phone: Summary Purpose Family History No Family History Records Found Relationship Condition Age at Onset Recorded Date/T radha mother Malignant neoplasm Unknown brother Cardiac disease Unknown father Malignant neoplasm Unknown sister Disorder of thyroid Unknown Advance Directives No Advanced Directives Records Found Advance Directive Response Recorded Date/ Time Living Will No May 02, 021 2:37pm Power of Mexican Food Machine Tender No May 02, 2021 2:37pm Advance Directive Response Recorded Date/ Time Living Will No August 14, 2024 9:03am Power of Mexican Food Machine Tender No August 14 9:03am Advance Directive Response Recorded Date/ Time Living Will No August 14, 2024 9:03am Do you have a Healthcare Power of Mexican Food Machine Tender? No August 14, 2024 9:03am Chief Complaint and Reason for Visit Chief Complaint TOBACCO USE Chief Complaint Admit Date UPDATE H&P, R INGUINAL HERNIA August 14, 2024 8:43am PREOP August 15, 2024 10:2 5am SMOKER August 18, 2024 3:38 pm Lap Robotic Inguinal Hernia w/mesh August 24, 2024 6:49am Lap Robotic Inguinal Hernia w/mesh August 24, 2024 7:22am Reason for Visit Admit Date Right inguinal hernia August 14, 2024 8: 43am Additional Source Comments (unrecognized sect ion and content) No Status Records FoundNo Status Records FoundNo Status Records Found INFORMATION SOURCE (unrecogn ized section and content) DATE CREATED AUTHOR 12/01/2017 [facility] DATE CREATED AUTHOR AUTHOR'S ORGANIZ ATION 06/30/2024 [facility] DATE CREATED AUTHOR AUTHOR'S ORGANIZ ATION [facility] Care Teams (unrecognized sec tion and content) Team Status: Active Member Role Status Dates Dr. Conrad Champion MD Primary Care Provider Activ e Team Status: Inactive Member Role Status Dates Dr. Conrad Champion MD Primary Care Provider, Attending Provider, Referring Provider Active Team Status: Active Member Role Status Dates Dr. Everett Champion MD Primary Care Provider Acti ve Team Status: Inactive Member Role Status Dates Dr. Everett Champion MD Primary Care Provider Acti ve Start: August 14, 2024 End: August 14, 2024 Dr. Everett Champion MD Referring Provider Active Start: August 14, 2024 End: August 14, 2024 Dr. Fortino Zhu MD Attending Provider Active Start: August 14, 2024 End: August 14, 2024 Team Status: Active Member Role Status Dates Dr. Everett Champion MD Primary Care Provider Acti ve Start: August 15, 2024 End: August 15, 2024 Dr. Nicolas Hayes MD Attending Provider Active Start: August 15, 2024 End: August 15, 2024 Dr. Fortino Zhu MD Referring Provider Active Start: August 15, 2024 End: August 15, 2024 Team Status: Active Member Role Status Dates Dr. Everett Champion MD Primary Care Provider Acti ve Start: August 18, 2024 Dr. Everett Champion MD Attending Provider Active Start: August 18, 2024 Dr. Everett Champion MD Referring Provider Active Start: August 18, 2024 Team Status: Inactive Member Role Status Dates Dr. Everett Champion MD Primary Care Provider Acti ve Start: August 24, 2024 End: August 24, 2024 Dr. Fortino Zhu MD Attending Provider Active Start: August 24, 2024 End: August 24, 2024 Dr. Fortino Zhu MD Referring Provider Active Start: August 24, 2024 End: August 24, 2024 Dr. Romeo Guzman MD Other Provider Active Start: August 24, 2024 End: August 24, 2024 Team Status: Active Member Role Status Dates Dr. Everett Champion MD Primary Care Provider Acti ve Start: August 24, 2024 Dr. Fortino Zhu MD Attending Provider Active Start: August 24, 2024 Dr. Fortino Zhu MD Referring Provider Active Start: August 24, 2024 Dr. Fortino Zhu MD Other Provider Active Start: August 24, 2024 Dr. Romeo Guzmna MD Other Provider Active Start: August 24, 2024 Team Status: Inactive Member Role Status Dates Dr. Everett Champion MD Primary Care Provider Acti ve Start: August 18, 2024 End: August 18, 2024 Dr. Everett Champion MD Attending Provider Active Start: August 18, 2024 End: August 18, 2024 Dr. Everett Champion MD Referring Provider Active Start: August 18, 2024 End: August 18, 2024 Goals (unrecognized section and content) Goals may be documented in a n alternate section Source Comments (unrecognize d section and content) In the event this informatio n is protected by the Federal Confidentiality of Alcohol and Drug Abuse Patient Records regulations: The Federal rules restrict any use of the information to criminally investigate or prosecute any alcohol or drug abuse patient.[facility] HealthcareIn the event this information is protected by the Federal Confidentiality of Alcohol and Drug Abuse Patient Records regulations: The Federal rules restrict any use of the information to criminally investigate or prosecute any alcohol or drug abuse patient.[facility] HealthcareIn the event this information is protected by the Federal Confidentiality of Alcohol and Drug Abuse Patient Records regulations: The Federal rules restrict any use of the information to criminally investigate or prosecute any alcohol or drug abuse patient.[facility] HealthcareIn the event this information is protected by the Federal Confidentiality of Alcohol and Drug Abuse Patient Records regulations: The Federal rules restrict any use of the information to criminally investigate or prosecute any alcohol or drug abuse patient.[facility] Reason for Visit (unrecogniz ed section and content) Reason Comments Results Orders Reason Comments Elevated PSA New Patient FOR RECORDS PERTAINING TO PATIENTS WHO ARE [...] BE BASED ON THE PRIMARY CLINICAL RECORDS. [employer] [facility]. provides no warranty or guarantee of the accuracy or completeness of information in this document.
== END | disposition home or self-care (01) ==
LOC: OPBD 12:19
PROVIDERS: PCP Family Medicine; Referring Provider Family Medicine; Visit Provider Family Medicine
DX: M81.0 Age-related osteoporosis without current pathological fracture (principal); Z72.0 Tobacco use
CPT/HCPCS: 77080